=== PATIENT | male | born 1935 | race Caucasian/White ===

== ENCOUNTER 2020-12-02 08:20 | Inpatient (IN) ==
--- NOTE | 2020-12-02 08:45 | Emergency Department Note ---
Impression & Plan Septic shock, Cholangitis, MAYUR (acute kidney injury), Supratherapeutic INR, Choledocholithiasis with acute cholecystitis with obstruction ED Provider Note NAME: KAREN GONSALEZ AGE: 85 SEX: M : 1935 ARRIVES VIA: Walk-In INFORMANT: Patient, ED PROVIDER(S): Severiano Wills MD Chief Complaint: Shortness of breath, weakness, abdominal pain, nausea vomiting HPI: Patient does present with the above symptoms and has noted some abdominal pain with associated shortness of breath and generalized weakness which has been ongoing for approximately week in duration. The patient denies any cough or fever. Patient is vaccinated for Covid. Patient is not taking anything in particular for his symptoms. Patient states he has had decreased appetite. No known sick contacts or recent travel. Patient does have some associated back discomfort. The patient denies any recent trauma. The patient does describe his abdominal pain is in the upper abdomen achy and nonradiating. Patient has vomited approximately 3 times. The patient denies any blood in the vomitus or any dark tarry stools or bright red blood per rectum. Patient does take Coumadin for history of stroke A. fib. Patient states he has otherwise been compliant with his medications. The patient's daughter at bedside also believes that he has gotten progressively more weak. Patient denies any headache or neck pain. Patient denies any focal numbness or weakness. No history of diabetes. ROS: See HPI for pertinent positives and negatives. A total of 10 systems were reviewed and otherwise negative. Past medical history: See below Surgical history: See below Social history: See below Physical Exam: GENERAL: Mildly ill in appearance. Wearing a mask. EYE EXAM: Scleral icterus noted. PERRL, no anisocoria and EOM's grossly intact w/o pain. NECK: Supple, no nuchal rigidity, no adenopathy, non-tender. No signs of meningismus. LUNGS: Mild tachypnea noted but clear breath sounds throughout with no obvious wheezing, rhonchi or crackles. HEART: Tachycardic and regular, no MRG. ABDOMEN: Abdomen soft, right upper quadrant and epigastric pain without lower abdominal pain, negative obturators and psoas normo-active bowel sounds, no mass es, no rebound or guarding. BACK: No CVA TTP. SKIN: Skin appears jaundiced. UPPER EXTREMITIES: Upper extremities are grossly normal. LOWER EXTREMITIES: Grossly normal, no edema. Negative Homans' sign bilaterally. NEURO EXAM: A&O x3, cranial nerves II-XII grossly intact, normal speech, moves all 4 extremities on command w/o issue. Differential diagnoses: Appendicitis, testicular torsion, infections, diverticulitis, UTI, obstruction, mesenteric ischemia, aortic pathology, inflammatory bowel disease, renal colic, PUD, pancreatitis, biliary pathology, hernia, volvulus, constipation, as well as other pathologies. Course: Patient was seen and evaluated the bedside. Full history physical exam was performed. EKG interpreted by me Gia cruz, rate of 93, normal QRS, left axis deviation. Imaging Studies: See Below Cardiac monitoring: An order was placed for continuous cardiac monitoring. The monitor shows a rate of 115 with tachycardic rhythm. MDM: Patient did present and did appear to be tachycardic with hypotension. The patient did have some scleral icterus and given the patient's symptoms I was concerned about the possibility of biliary obstruction. Patient did have Zosyn ordered along with IV fluids. The patient did have a CT abdomen pelvis ordered as well. The patient's [id number] creatinine was elevated so a noncontrast study was ordered. The patient's white count was 21.3 with a normal H&H and platelet count. The patient's kidney function showed acute kidney dysfunction with a creatinine greater than 2. The patient did have a low potassium was ordered 20 any cues IV for an appointment. INR was approximately 10. The patient was ordered 10 of IV vitamin K. Initial lactate was elevated. Troponin also elevated with transaminitis and hyperbilirubinemia. Lipase is also elevated with elevated procalcitonin. Given the after mentioned I did immediately speak with the lead warehouse associate due to the concern for the 4 mm obstructing stone in CBD dilatation ascending cholangitis and acute cholecystitis. I did speak with Iman Coleman PA-C with Dr. Cline. They did asked the patient be given albumin as well as FFP. . Patient did have 2 large-bore IVs that were obtained in order for adequate access. I did reevaluate the patient numerous times. The patient did have an increasing oxygen requirement. The patient was stable on 8 L via oxygen mask. I also did speak with general surgery Nabila Kang PA-C with Dr. Avendano. The patient will need an emergent ERCP in order for improvement of the patient's symptoms. Given the patient's persistent hypotension the patient was started on Levophed. The patient is DNI but not DNR. I did have additional discussion with the patient's daughter at bedside. I did speak with the on-call hospitalist Rebeka Hargrove PA-C and the patient was admitted by Dr. Chiu. I did speak with the on-call boring mill set up operator vertical Dr. Starr and the patient was taken to the intensive care unit after the patient had had FFP administered. Critical Care: I have personally spent 245 minutes of critical care time in direct management of this patient. This includes bedside care, interpretation of diagnostic studies, and testing, discussion with consultants, patient, and family members, and other require inpatient management activities. This 245 minutes is in excess of all separately billable procedures. Past Med/Surg History Medical History CAD (coronary artery disease) Chronic atrial fibrillation History of CVA (cerebrovascular accident) HLD (hyperlipidemia) HTN (hypertension) Hx of pulmonary embolus Surgical History History of knee replacement Social History Smoking Status: Former smoker Tobacco Type: Cigarettes Hx Alcohol Use: No Hx Substance Use: No Preferred Language: Chinese Communication Ability: Effective Beliefs That Will Affect Care: None Current Living Situation: Alone Other Information That Helps Us Care for You: No Feels Safe at Home: Yes Safety Concerns: Feels Safe At This Time Assistive Devices: None Allergies Allergies Allergy/AdvReac Type Severity Reaction Status Date / Time No Known Allergies Allergy Unknown Verified 12/02/20 09:11 Home Meds Home Medications Medication Instructions Recorded Confirmed atorvastatin 10 mg tablet (Lipitor) 0 mg PO HS 12/02/20 12/02/20 felodipine 5 mg tablet,extended 5 mg PO QAM 12/02/20 12/02/20 release 24 hr hydrochlorothiazide 12.5 mg capsule 12.5 mg PO QAM 12/02/20 12/02/20 lisinopril 20 mg tablet (Prinivil) 20 mg PO BID 12/02/20 12/02/20 metoprolol tartrate 50 mg tablet 25 mg PO BID 12/02/20 12/02/20 (Lopressor) multivitamin (Daily Multi-Vitamin) 1 tab PO QAM 12/02/20 12/02/20 omega [id number]-[id number]-fish oil 1,200 mg 1 cap PO BID 12/02/20 12/02/20 (144 mg-216 mg) capsule (Fish Oil) warfarin 5 mg tablet (Jantoven) See Rx Instructions .ROUTE .COMPLEX 12/02/20 12/02/20 Results & Data (ED) Vital Signs Vital Signs - 24 hr 12/02/20 08:36 12/02/20 08:52 12/02/20 09:38 Temperature 36.3 C L Temperature Source Temporal Artery Scan Pulse Rate 90 Pulse Rate [Right Finger] 95 H Respiratory Rate 22 24 Respiratory Effort / Characteristics Short of Breath Non-Labored Respiratory Depth Normal Respiratory Pattern Blood Pressure 78/54 L Blood Pressure [Right Arm] 105/62 Blood Pressure Mean 62 Blood Pressure Mean [Right Arm] 76 Blood Pressure Position Sitting Pulse Oximetry 99 94 Oxygen Delivery Method Room Air Room Air Room Air Oxygen Flow Rate Sepsis Recent Fever Within 48 Hours No Sepsis New/Unexplained Change in Mental Status N/A Sepsis Action Taken by Nursing No Action Required Oxygen Flow Rate - Titration Pulse Oximetry Post Tiitration 12/02/20 09:40 12/02/20 09:42 12/02/20 09:52 Temperature Temperature Source Pulse Rate Pulse Rate [Right Finger] 90 Respiratory Rate 32 H 24 Respiratory Effort / Characteristics Non-Labored Non-Labored Non-Labored Respiratory Depth Normal Normal Respiratory Pattern Regular Blood Pressure Blood Pressure [Right Arm] 105/62 Blood Pressure Mean Blood Pressure Mean [Right Arm] 76 Blood Pressure Position Pulse Oximetry 95 95 Oxygen Delivery Method Room Air Room Air Room Air Oxygen Flow Rate Sepsis Recent Fever Within 48 Hours Sepsis New/Unexplained Change in Mental Status Sepsis Action Taken by Nursing Oxygen Flow Rate - Titration Pulse Oximetry Post Tiitration 12/02/20 10:38 12/02/20 10:39 12/02/20 10:53 Temperature Temperature Source Pulse Rate Pulse Rate [Right Finger] 88 94 H Respiratory Rate 36 H 36 H Respiratory Effort / Characteristics Respiratory Depth Respiratory Pattern Blood Pressure Blood Pressure [Right Arm] 96/51 L 96/51 L Blood Pressure Mean Blood Pressure Mean [Right Arm] 66 66 Blood Pressure Position Pulse Oximetry 93 92 88 L Oxygen Delivery Method Room Air Room Air Nasal Cannula Oxygen Flow Rate Sepsis Recent Fever Within 48 Hours Sepsis New/Unexplained Change in Mental Status Sepsis Action Taken by Nursing Oxygen Flow Rate - Titration 4 Pulse Oximetry Post Tiitration 12/02/20 10:57 12/02/20 10:59 12/02/20 11:00 Temperature Temperature Source Pulse Rate Pulse Rate [Right Finger] 81 86 Respiratory Rate 36 H 34 H Respiratory Effort / Characteristics Respiratory Depth Respiratory Pattern Blood Pressure Blood Pressure [Right Arm] 81/58 L 92/56 L Blood Pressure Mean Blood Pressure Mean [Right Arm] 65 68 Blood Pressure Position Pulse Oximetry 91 91 Oxygen Delivery Method Nasal Cannula Nasal Cannula Nasal Cannula Oxygen Flow Rate 4 6 6 Sepsis Recent Fever Within 48 Hours Sepsis New/Unexplained Change in Mental Status Sepsis Action Taken by Nursing Oxygen Flow Rate - Titration Pulse Oximetry Post Tiitration 12/02/20 11:13 12/02/20 11:15 Temperature Temperature Source Pulse Rate Pulse Rate [Right Finger] 80 Respiratory Rate 24 Respiratory Effort / Characteristics Respiratory Depth Respiratory Pattern Blood Pressure Blood Pressure [Right Arm] 104/56 L Blood Pressure Mean Blood Pressure Mean [Right Arm] 72 Blood Pressure Position Pulse Oximetry 91 93 Oxygen Delivery Method Oxymask Oxymask Oxygen Flow Rate 8 8 Sepsis Recent Fever Within 48 Hours Sepsis New/Unexplained Change in Mental Status Sepsis Action Taken by Nursing Oxygen Flow Rate - Titration Pulse Oximetry Post Tiitration 93 Home Medications Current Medication List: was personally reviewed by me Laboratory Data Attestation: I reviewed the patient's lab results. Result diagrams: 12/02/20 09:13 12/02/20 09:13 Lab Results 12/02/20 12/02/20 12/02/20 Range/Units 09:13 09:13 09:13 WBC 21.30 H (4.8-10.8) K/uL RBC 5.33 (4.7-6.1) M/uL Hgb 16.1 (14.0-18.0) g/dL Hct 47.2 (42-52) % MCV 88.6 (80-100) fL MCH 30.2 (25-34) pg MCHC 34.1 (32-36) g/dL RDW Std Deviation 47.7 H (36.4-46.3) fL RDW Coeff of Otilia 14.8 H (11.5-14.5) % Plt Count 181 (130-400) K/uL MPV 11.2 H (7.4-10.4) fL Immature Gran % (Auto) 1.5 % Neut % (Auto) 93.6 % Lymph % (Auto) 2.3 % [place] % (Auto) 2.6 % Eos % (Auto) 0.0 % Baso % (Auto) 0.0 % Neut # (Auto) 19.92 H (1.4-6.5) K/uL Lymph # (Auto) 0.49 L (1.2-3.4) K/uL [place] # (Auto) 0.55 (0.11-0.59) K/uL Eos # (Auto) 0.00 (0-0.5) K/uL Baso # (Auto) 0.01 (0-0.2) K/uL Immature Gran # (Auto) 0.33 H (0.00-0.02) K/uL Toxic Vacuolation 2+ PT (9.0-12.0) Seconds INR (0.9-1.1) APTT (21.0-31.0) Seconds PTT Ratio Sodium 133 L (136-145) mmol/L Potassium 2.6 L (3.5-5.1) mmol/L Chloride 94 L (98-107) mmol/L Carbon Dioxide 24 (21-32) mmol/L Anion Gap 16.0 H (3-11) BUN 22 H (7-18) mg/dl Creatinine 2.17 H (0.6-1.4) mg/dl Est Cr Clr Drug Dosing 29.7 ml/min Est GFR ( Amer) 30.6 ml/min Est GFR (Non-Af Amer) 26.4 ml/min BUN/Creatinine Ratio 10.2 (10-20) Glucose 94 (70-99) mg/dl Lactate (0.4-2.0) mmol/L Calcium 8.8 (8.5-10.1) mg/dl Magnesium 1.9 (1.8-2.4) mg/dl Total Bilirubin 7.1 H (0.2-1) mg/dl AST 153 H (15-37) U/L ALT 222 H (12-78) U/L Alkaline Phosphatase 233 H (45-117) U/L Troponin I 0.129 H* (0-0.045) ng/ml Total Protein 7.1 (6.4-8.2) gm/dl Albumin 2.7 L (3.4-5.0) gm/dl Globulin 4.4 H (2.5-4.0) gm/dl Albumin/Globulin Ratio 0.6 L (0.9-2) Lipase 1052 H (73-393) U/L Procalcitonin 37.23 H (0-0.5) ng/ml COVID-19 Eval Order SARS-CoV-2 (PCR) (Negative) 12/02/20 12/02/20 12/02/20 Range/Units 09:13 09:30 09:30 WBC (4.8-10.8) K/uL RBC (4.7-6.1) M/uL Hgb (14.0-18.0) g/dL Hct (42-52) % MCV (80-100) fL MCH (25-34) pg MCHC (32-36) g/dL RDW Std Deviation (36.4-46.3) fL RDW Coeff of Otilia (11.5-14.5) % Plt Count (130-400) K/uL MPV (7.4-10.4) fL Immature Gran % (Auto) % Neut % (Auto) % Lymph % (Auto) % [place] % (Auto) % Eos % (Auto) % Baso % (Auto) % Neut # (Auto) (1.4-6.5) K/uL Lymph # (Auto) (1.2-3.4) K/uL [place] # (Auto) (0.11-0.59) K/uL Eos # (Auto) (0-0.5) K/uL Baso # (Auto) (0-0.2) K/uL Immature Gran # (Auto) (0.00-0.02) K/uL Toxic Vacuolation PT 83.5 H (9.0-12.0) Seconds INR 9.9 H* (0.9-1.1) APTT 39.0 H (21.0-31.0) Seconds PTT Ratio 1.5 Sodium (136-145) mmol/L Potassium (3.5-5.1) mmol/L Chloride (98-107) mmol/L Carbon Dioxide (21-32) mmol/L Anion Gap (3-11) BUN (7-18) mg/dl Creatinine (0.6-1.4) mg/dl Est Cr Clr Drug Dosing ml/min Est GFR ( Amer) ml/min Est GFR (Non-Af Amer) ml/min BUN/Creatinine Ratio (10-20) Glucose (70-99) mg/dl Lactate (0.4-2.0) mmol/L Calcium (8.5-10.1) mg/dl Magnesium (1.8-2.4) mg/dl Total Bilirubin (0.2-1) mg/dl AST (15-37) U/L ALT (12-78) U/L Alkaline Phosphatase (45-117) U/L Troponin I (0-0.045) ng/ml Total Protein (6.4-8.2) gm/dl Albumin (3.4-5.0) gm/dl Globulin (2.5-4.0) gm/dl Albumin/Globulin Ratio (0.9-2) Lipase (73-393) U/L Procalcitonin (0-0.5) ng/ml COVID-19 Eval Order Covid19 at [facility] SARS-CoV-2 (PCR) NEGATIVE (Negative) 12/02/20 Range/Units 09:36 WBC (4.8-10.8) K/uL RBC (4.7-6.1) M/uL Hgb (14.0-18.0) g/dL Hct (42-52) % MCV (80-100) fL MCH (25-34) pg MCHC (32-36) g/dL RDW Std Deviation (36.4-46.3) fL RDW Coeff of Otilia (11.5-14.5) % Plt Count (130-400) K/uL MPV (7.4-10.4) fL Immature Gran % (Auto) % Neut % (Auto) % Lymph % (Auto) % [place] % (Auto) % Eos % (Auto) % Baso % (Auto) % Neut # (Auto) (1.4-6.5) K/uL Lymph # (Auto) (1.2-3.4) K/uL [place] # (Auto) (0.11-0.59) K/uL Eos # (Auto) (0-0.5) K/uL Baso # (Auto) (0-0.2) K/uL Immature Gran # (Auto) (0.00-0.02) K/uL Toxic Vacuolation PT (9.0-12.0) Seconds INR (0.9-1.1) APTT (21.0-31.0) Seconds PTT Ratio Sodium (136-145) mmol/L Potassium (3.5-5.1) mmol/L Chloride (98-107) mmol/L Carbon Dioxide (21-32) mmol/L Anion Gap (3-11) BUN (7-18) mg/dl Creatinine (0.6-1.4) mg/dl Est Cr Clr Drug Dosing ml/min Est GFR ( Amer) ml/min Est GFR (Non-Af Amer) ml/min BUN/Creatinine Ratio (10-20) Glucose (70-99) mg/dl Lactate 8.9 H* (0.4-2.0) mmol/L Calcium (8.5-10.1) mg/dl Magnesium (1.8-2.4) mg/dl Total Bilirubin (0.2-1) mg/dl AST (15-37) U/L ALT (12-78) U/L Alkaline Phosphatase (45-117) U/L Troponin I (0-0.045) ng/ml Total Protein (6.4-8.2) gm/dl Albumin (3.4-5.0) gm/dl Globulin (2.5-4.0) gm/dl Albumin/Globulin Ratio (0.9-2) Lipase (73-393) U/L Procalcitonin (0-0.5) ng/ml COVID-19 Eval Order SARS-CoV-2 (PCR) (Negative) Administered Medications Norepinephrine Bitartrate (Levophed/D5w) 8 mg in 508 mls @ 18.84 mls/hr IV .Q24H JACEK; Protocol Stop: 01/01/21 12:29 Last Admin: 12/02/20 12:41 Dose: 0.05 mcg/kg/min, 18.8 mls/hr Documented by: [id number] Cosigned by: [id number] Lactated Ringer's (Lr) 1,000 mls @ 125 mls/hr IV .Q8H JACEK Stop: 12/03/20 15:22 Last Admin: 12/02/20 16:23 Dose: 125 mls/hr Documented by: [id number] Piperacillin Sod/Tazobactam (Sod 4.5 gm/ Dextrose) 120 mls @ 30 mls/hr IV Q8H [facility]; Protocol Stop: 12/12/20 15:59 Last Admin: 12/02/20 16:38 Dose: 30 mls/hr Documented by: [id number] Discontinued Medications Sodium Chloride (Nss 1000ml) 1,000 mls @ 999 mls/hr IV .Q1H1M JACEK Stop: 12/02/20 09:54 Last Infusion: 12/02/20 12:06 Dose: 0 mls/hr Documented by: [id number] Admin: 12/02/20 09:16 Dose: 999 mls/hr Documented by: [id number] Sodium Chloride (Nss 1000ml) 1,000 mls @ 999 mls/hr IV .Q1H1M [facility] Stop: 12/02/20 11:00 Last Infusion: 12/02/20 12:11 Dose: 0 mls/hr Documented by: [id number] Admin: 12/02/20 09:44 Dose: 999 mls/hr Documented by: [id number] Piperacillin Sod/Tazobactam Sod (Zosyn) 4.5 gm in 120 mls @ 240 mls/hr IV NOW ONE Stop: 12/02/20 09:22 Last Infusion: 12/02/20 10:31 Dose: 0 mls/hr Documented by: [id number] Admin: 12/02/20 09:16 Dose: 240 mls/hr Documented by: [id number] Sodium Chloride (Nss 1000ml) 1,000 mls @ 999 mls/hr IV .Q1H1M ONE Stop: 12/02/20 11:13 Last Infusion: 12/02/20 12:06 Dose: 0 mls/hr Documented by: [id number] Admin: 12/02/20 10:41 Dose: 999 mls/hr Documented by: [id number] Phytonadione 10 mg/ Sodium (Chloride) 51 mls @ 102 mls/hr IV ONE ONE Stop: 12/02/20 10:44 Last Infusion: 12/02/20 11:14 Dose: 0 mls/hr Documented by: [id number] Admin: 12/02/20 10:37 Dose: 102 mls/hr Documented by: [id number] Potassium Chloride (K Patrick / Wtr) 10 meq in 100 mls @ 100 mls/hr IV Q1H JACEK Stop: 12/02/20 12:29 Last Infusion: 12/02/20 13:49 Dose: 0 mls/hr Documented by: [id number] Admin: 12/02/20 12:10 Dose: 100 mls/hr Documented by: [id number] Infusion: 12/02/20 12:10 Dose: 100 mls/hr Documented by: [id number] Admin: 12/02/20 11:10 Dose: 100 mls/hr Documented by: [id number] Potassium Chloride (K Patrick / Wtr) 10 meq in 100 mls @ 100 mls/hr IV Q1H JACEK Stop: 12/02/20 16:29 Last Infusion: 12/02/20 16:06 Dose: 0 mls/hr Documented by: [id number] Admin: 12/02/20 15:06 Dose: 100 mls/hr Documented by: [id number] Sodium Chloride (Nss 1000ml) 1,000 mls @ 999 mls/hr IV .Q1H1M ONE Stop: 12/02/20 13:26 Last Infusion: 12/02/20 13:50 Dose: 0 mls/hr Documented by: [id number] Admin: 12/02/20 12:32 Dose: 999 mls/hr Documented by: [id number] Albumin Human (Albumin 25%) 12.5 gm in 50 mls @ 50 mls/hr IV Q1H JACEK Stop: 12/02/20 14:44 Last Infusion: 12/02/20 15:52 Dose: 0 mls/hr Documented by: [id number] Admin: 12/02/20 14:52 Dose: 50 mls/hr Documented by: [id number] Infusion: 12/02/20 14:08 Dose: 50 mls/hr Documented by: [id number] Admin: 12/02/20 13:08 Dose: 50 mls/hr Documented by: [id number] Miscellaneous (Stat Iv Infusion Titration Per Protocol) 1 ea N/A NOW STA Stop: 12/02/20 12:27 Last Admin: 12/02/20 12:41 Dose: 1 ea Documented by: [id number] Miscellaneous Information (Piperacill/Tazobac Consult Active) 1 ea N/A UD PRN PRN Reason: Consult Stop: 01/01/21 08:52 Last Admin: 12/02/20 09:44 Dose: 1 ea Documented by: [id number] Norepinephrine Bitartrate (Norepinephrine/D5w 8 Mg/508 Ml) Confirm Administered Dose 8 mg IV .STK-MED ONE Stop: 12/02/20 12:24 Last Admin: 12/02/20 12:38 Dose: 8 mg Documented by: [id number] Imaging Data Radiologist's Impression: Chest X-Ray 12/02/20 08:54 XR chest 1V portable HISTORY: 85 years-old Male SEPSIS acute sepsis COMPARISON: Chest CT 11/03/2008, chest radiograph 12/17/2007 TECHNIQUE: Portable AP view of the chest FINDINGS: Cardiac silhouette is upper limits of normal in size. Calcified plaque of the thoracic aorta. Mild blunting of the right costophrenic angle with subsegmental bibasilar atelectasis. No pneumothorax, large pleural effusion or overt pulmonary edema. Degenerative changes of the shoulders and spine. IMPRESSION: Blunting of the right costophrenic angle is suggestive of atelectasis versus trace effusion. ACT 112: Negative or not required by law. The above report was generated using voice recognition software. It may contain grammatical, syntax or spelling errors. Electronically signed by: Emeterio Stark M.D. 12/02/2020 9:23 AM Abdomen/Pelvis CT 12/02/20 09:50 CT SCAN OF THE ABDOMEN AND PELVIS WITHOUT CONTRAST CLINICAL HISTORY: epigastric/RUQ pain COMPARISON STUDY: No previous studies for comparison. TECHNIQUE: CT scan of the abdomen and pelvis was performed from the lung bases to the proximal femurs. Images are reviewed in the axial, sagittal, and coronal planes. IV contrast was not administered for this examination. A dose lowering technique was utilized adhering to the principles of ALARA. CT DOSE: 1030.84 mGycm FINDINGS: Lower chest: Minimal atelectasis and septal thickening is seen at dependent portions of bilateral lower lobes. Liver: The unenhanced liver is normal in size, contour, and attenuation. There is no intrahepatic biliary ductal dilatation. Gallbladder: Is fluid-filled with mild thickening of its wall and surrounding fat stranding. Common bile duct is dilated measuring 1.4 cm in diameter. There is obstructive 4 mm calculus within distal aspect of the common bile duct (3/205). Fat stranding within the right upper quadrant is seen extending to the second portion of the duodenum, surrounds right kidney and associated with thickening of the right hemidiaphragm. Spleen: Normal in size and attenuation. Pancreas: Unremarkable. Adrenal glands: Left adrenal gland is unremarkable. Right adrenal gland is enl arged measuring 3.7 cm in size and shows internal 2.2 cm hyperattenuating component which is close in attenuation to lumen of aorta and might represent hemorrhage versus heterogeneous hyperattenuating nodule. Kidneys: The unenhanced kidneys are normal in size without hydronephrosis. Multiple punctate nonobstructive calculi are seen within bilateral renal pelvises. Hemorrhagic cyst is seen within the posterior aspect of the right renal parenchyma measuring approximately 1.3 cm in size. 2.5 cm cyst is seen within inferior aspect of the right renal cortex. Bowel: Moderate hiatal hernia is seen. Bowel loops are nondilated. Fat stranding is seen surrounding descending portion of the duodenum, likely reactive. No definite duodenal wall thickening is seen. Appendix is not well seen. Diverticulosis of descending and sigmoid colon is seen without evidence of diverticulitis. Large stool burden is seen within pelvic region. Peritoneum: There is no intraperitoneal free air or abdominal ascites. Vasculature: Abdominal aorta is normal in caliber with scattered calcifications of its wall. Adenopathy: Multiple small retroperitoneal lymph nodes are seen measuring less than 1 cm in short axis, nonpathological by CT size criteria. Pelvic viscera: Urinary bladder is partially decompressed. Prostate gland is not significantly enlarged. Skeletal structures: Multilevel degenerative changes of the spine. No definite a ggressive osseous lesions are seen. IMPRESSION: 1. Obstructive 4 mm calculus within distal aspect of the common bile duct associated with common bile duct dilatation and cholecystitis and cholangitis. Report will be sent to emergency Department. 2. Questionable heterogeneous right adrenal nodule which might also represent hemorrhage. Please correlate this findings with clinical presentation. 3. Bilateral nonobstructive nephrolithiasis. Cystic lesions within the right kidney, see discussion above. 4. Nondilated loops of bowel. Diverticulosis of sigmoid colon. Large amount of stool within the rectum, might represent fecal impaction. 5. Atherosclerosis. 6. The rest of findings as above. ACT 112: Negative or not required by law. The above report was generated using voice recognition software. It may contain grammatical, syntax or spelling errors. Electronically signed by: Isaura Perez DO 12/02/2020 10:36 AM Discharge Plan Visit Data Chief Complaint: Shortness of Breath/Dyspnea Stated Complaint: SOB,ABDOMINAL PAIN,WEAKNESS ED Provider: Severiano Wills Discharge Problem: Septic shock, Cholangitis, MAYUR (acute kidney injury), Supratherapeutic INR, Choledocholithiasis with acute cholecystitis with obstruction Patient Disposition: Admitted As Inpatient Discharge Instructions Interventions: ED Discharge Assessment Last Done: 12/02/20 14:18
[2020-12-02] MEDS ORDERED: PIPERACILL/TAZOBAC CONSULT ACTIVE PRN ×2 (08:53→15:23)
[2020-12-02] MEDS ORDERED: PIPERACILLIN/TAZOBACTAM 4.5 GM/120 ML BAG IV ONE (08:53)
[2020-12-02] MEDS ORDERED: SODIUM CHLORIDE 0.9% 1000ML 1,000 ML IV SCH ×2 (09:00→10:00)
[2020-12-02 09:22] LABS: Basophils # (auto) 0.01 K/uL (0-0.2); Hematocrit (blood only) 47.2 % (42-52); Hemoglobin 16.1 g/dL (14.0-18.0); Immature Granulocytes # (auto) 0.33 K/uL (0.00-0.02); Immature Granulocytes % (auto) 1.5 %; Lymphocytes # (auto) 0.49 K/uL (1.2-3.4); Lymphocytes % (auto) 2.3 %; Mean Corpuscular Hemoglobin 30.2 pg (25-34); Mean Corpuscular Hgb Conc 34.1 g/dL (32-36); Mean Corpuscular Volume 88.6 fL (80-100); Mean Platelet Volume 11.2 fL (7.4-10.4); Monocytes # (auto) 0.55 K/uL (0.11-0.59); Monocytes % (auto) 2.6 %; Neutrophils # (auto) 19.92 K/uL (1.4-6.5); Neutrophils % (auto) 93.6 %; Platelet Count 181 K/uL (130-400); RDW Coefficient of Variation 14.8 % (11.5-14.5); RDW Standard Deviation 47.7 fL (36.4-46.3); Red Blood Count 5.33 M/uL (4.7-6.1)
--- NOTE | 2020-12-02 09:24 | XRay Report ---
XR chest 1V portable HISTORY: 85 years-old Male SEPSIS acute sepsis COMPARISON: Chest CT 11/03/2008, chest radiograph 12/17/2007 TECHNIQUE: Portable AP view of the chest FINDINGS: Cardiac silhouette is upper limits of normal in size. Calcified plaque of the thoracic aorta. Mild bl unting of the right costophrenic angle with subsegmental bibasilar atelectasis. No pneumothorax, larg e pleural effusion or overt pulmonary edema. Degenerative changes of the shoulders and spine. IMPRESSION: Blunting of the right costophrenic angle is suggestive of atelectasis versus trace effusi on. ACT 112: Negative or not required by law. The above report was generated using voice recognition software. It may contain grammatical, syntax o r spelling errors. Electronically signed by: Emeterio Stark M.D. 12/02/2020 9:23 AM
[2020-12-02 09:53] LABS: Partial Thromboplastin Ratio 1.5; Prothrombin Time 83.5 Seconds (9.0-12.0)
[2020-12-02 09:55] LABS: Albumin Globulin Ratio 0.6 (0.9-2); Albumin Level 2.7 gm/dl (3.4-5.0); BUN Creatinine Ratio 10.2 (10-20); Bilirubin,Total 7.1 mg/dl (0.2-1); Calcium 8.8 mg/dl (8.5-10.1); Creatinine Clr Calc Pharmacy 29.7 ml/min; Est GFR (African American) 30.6 ml/min; Est GFR (Non-African American) 26.4 ml/min; Globulin 4.4 gm/dl (2.5-4.0); Magnesium 1.9 mg/dl (1.8-2.4); Potassium 2.6 mmol/L (3.5-5.1); Total Protein 7.1 gm/dl (6.4-8.2); Troponin I 0.129 ng/ml (0-0.045)
[2020-12-02 10:11] LABS: INR 9.9 (0.9-1.1); Toxic Vacuolation 2+
[2020-12-02] MEDS ORDERED: SODIUM CHLORIDE 0.9% 1000ML 1,000 ML IV ONE ×3 (10:13→12:26)
[2020-12-02] MEDS ORDERED: PHYTONADIONE 10 MG in SODIUM CHLORIDE 0.9% 50 ML IV ONE (10:15)
--- NOTE | 2020-12-02 10:37 | CT Scan Report ---
CT SCAN OF THE ABDOMEN AND PELVIS WITHOUT CONTRAST CLINICAL HISTORY: epigastric/RUQ pain COMPARISON STUDY: No previous studies for comparison. TECHNIQUE: CT scan of the abdomen and pelvis was performed from the lung bases to the proximal femurs . Images are reviewed in the axial, sagittal, and coronal planes. IV contrast was not administered fo r this examination. A dose lowering technique was utilized adhering to the principles of ALARA. CT DOSE: 1030.84 mGycm FINDINGS: Lower chest: Minimal atelectasis and septal thickening is seen at dependent portions of bilateral low er lobes. Liver: The unenhanced liver is normal in size, contour, and attenuation. There is no intrahepatic chuck iary ductal dilatation. Gallbladder: Is fluid-filled with mild thickening of its wall and surrounding fat stranding. Common b ile duct is dilated measuring 1.4 cm in diameter. There is obstructive 4 mm calculus within distal as pect of the common bile duct (3/205). Fat stranding within the right upper quadrant is seen extending to the second portion of the duodenum, surrounds right kidney and associated with thickening of the right hemidiaphragm. Spleen: Normal in size and attenuation. Pancreas: Unremarkable. Adrenal glands: Left adrenal gland is unremarkable. Right adrenal gland is enlarged measuring 3.7 cm in size and shows internal 2.2 cm hyperattenuating component which is close in attenuation to lumen o f aorta and might represent hemorrhage versus heterogeneous hyperattenuating nodule. Kidneys: The unenhanced kidneys are normal in size without hydronephrosis. Multiple punctate nonobstr uctive calculi are seen within bilateral renal pelvises. Hemorrhagic cyst is seen within the posterio r aspect of the right renal parenchyma measuring approximately 1.3 cm in size. 2.5 cm cyst is seen wi thin inferior aspect of the right renal cortex. Bowel: Moderate hiatal hernia is seen. Bowel loops are nondilated. Fat stranding is seen surrounding descending portion of the duodenum, likely reactive. No definite duodenal wall thickening is seen. Ap pendix is not well seen. Diverticulosis of descending and sigmoid colon is seen without evidence of d iverticulitis. Large stool burden is seen within pelvic region. Peritoneum: There is no intraperitoneal free air or abdominal ascites. Vasculature: Abdominal aorta is normal in caliber with scattered calcifications of its wall. Adenopathy: Multiple small retroperitoneal lymph nodes are seen measuring less than 1 cm in short axi s, nonpathological by CT size criteria. Pelvic viscera: Urinary bladder is partially decompressed. Prostate gland is not significantly enlarg ed. Skeletal structures: Multilevel degenerative changes of the spine. No definite aggressive osseous les ions are seen. IMPRESSION: 1. Obstructive 4 mm calculus within distal aspect of the common bile duct associated with common chuck e duct dilatation and cholecystitis and cholangitis. Report will be sent to emergency Department. 2. Questionable heterogeneous right adrenal nodule which might also represent hemorrhage. Please cor relate this findings with clinical presentation. 3. Bilateral nonobstructive nephrolithiasis. Cystic lesions within the right kidney, see discussion above. 4. Nondilated loops of bowel. Diverticulosis of sigmoid colon. Large amount of stool within the rect um, might represent fecal impaction. 5. Atherosclerosis. 6. The rest of findings as above. ACT 112: Negative or not required by law. The above report was generated using voice recognition software. It may contain grammatical, syntax o r spelling errors. Electronically signed by: Isaura Perez DO 12/02/2020 10:36 AM
--- NOTE | 2020-12-02 10:59 | Gastrointestinal Consultation ---
Date of Consultation December 02, 2020 Assessment & Plan (1) Cholangitis: (2) Dilated cbd, acquired: This is an 85 y/o male with a-fib on Coumadin and other co-morbidities who presented to the ER with abd pain, SOB. Lab, imaging findings concerning for sepsis with biliary obstruction, cholangitis, cholecystitis, with supratherapeutic INR, hypokalemia, MAYUR. He is ill-appearing on exam, having some hypotension; abd is soft. - Will plan for urgent ERCP today for evaluation of CBD stone/cholangitis. I reviewed this with pt and his daughter - Keep NPO - Will need INR reversal - aim for INR < 2 - Please make sure 2 units FFP are available and ready to be given 30 mins prior to ERCP - Will need replacement of potassium - aim for K > 3 - IV ABX - IVF - Supportive care as needed - Analgesia PRN - Surgical consult to consider cholecystectomy Thank you for allowing us to participate in the care of this patient. Please call with any acute changes, questions or concerns. Please see addendum below with additional recommendation from my supervising physician. Supervising Physician Co-Signing Physician Notes I performed a history and physical examination of the patient today, including specifically on physical exam - soft abdomen. I have discussed the patient's management with the advanced practitioner. Please refer to the nurse practitioner's note for the documented findings and plan of care. Urgent ERCP now for cholangitis with septic shock. Patient was explained in detail regarding risks, benefits, limitations and alternatives of the above endoscopic procedure. Risks of intravenous sedation used for procedure were also explained. Risks include, but not limited to perforation, bleeding, infection, respiratory distress, cardiac arrest and . Patient is also aware about the possibility of missed lesion. Patient's questions were answered. The patient verbalized understanding the information and agreed to undergo the procedure. History of Present Illness Reason for Consultation: cholangitis Requesting Physician: Dr. Severiano Wills History of Present Illness This is an 85 y/o male with PMhx HTN, HLD, stroke, A-fib on Coumadin, history of PE and others who came to the ER today with 1 week of progressive upper abd pain, SOB, weakness, poor appetite, vomiting x 3 (none today). On arrival labs significantly abnormal with WBC 21k, MAYUR w/ creatinine 2.17, BUN 22, INR 9.9, Tbili 7.1, AST 153, ALT 222, ALP 233, lipase 1000, procal 37, lactate 9, Na 133, K 2.6. Is having hypotension and tachypnea. Has gotten IVF x [address] suggestive of obstructive 4 mm distal CBD calculus with CBD dilation and cholecystitis, cholangitis. His daughter Jessenia is at bedside and helps with the history. Pt has had dark urine for a few days. Last BM was yesterday, small, dark. Denies hematemesis, melena, hematochezia, ruiz stools, chills, rigors, fever, syncope, CP, leg edema. No NSAID, ETOH or tobacco use. Allergies Allergy/AdvReac Type Severity Reaction Status Date / Time No Known Allergies Allergy Unknown Verified 12/02/20 09:11 Home Medications Medication Instructions Recorded Confirmed Type atorvastatin 10 mg tablet (Lipitor) 0 mg PO HS 12/02/20 12/02/20 History felodipine 5 mg tablet,extended 5 mg PO QAM 12/02/20 12/02/20 History release 24 hr hydrochlorothiazide 12.5 mg capsule 12.5 mg PO QAM 12/02/20 12/02/20 History lisinopril 20 mg tablet (Prinivil) 20 mg PO BID 12/02/20 12/02/20 History metoprolol tartrate 50 mg tablet 25 mg PO BID 12/02/20 12/02/20 History (Lopressor) multivitamin (Daily Multi-Vitamin) 1 tab PO QAM 12/02/20 12/02/20 History omega 2-nkr-jvb-fish oil 1,200 mg 1 cap PO BID 12/02/20 12/02/20 History (144 mg-216 mg) capsule (Fish Oil) warfarin 5 mg tablet (Jantoven) See Rx Instructions .ROUTE .COMPLEX 12/02/20 12/02/20 History Patient History Social History Smoking Status: Former smoker Tobacco Type: Cigarettes Hx Alcohol Use: No Hx Substance Use: No Preferred Language: Vietnamese Communication Ability: Effective Beliefs That Will Affect Care: None Current Living Situation: Alone Other Information That Helps Us Care for You: No Feels Safe at Home: Yes Safety Concerns: Feels Safe At This Time Assistive Devices: None Review of Systems Review of Systems: All systems reviewed & are unremarkable except as noted in HPI & below Physical Exam Constitutional: Well developed, ill-appearing Eyes: PERRL, conjunctivae normal, anicteric sclerae Neck: trachea midline, no thyromegaly Respiratory: normal respiratory effort, lungs clear to auscultation Cardiovascular: Rate/Rhythm: + irregularly irregular Heart Sounds: no murmur Extremities: no edema Gastrointestinal (Abdomen): BS x 4 quadrants, soft, moderately tender to the epigastrium/RUQ, no guarding, rebound, nondistended Skin: no rashes, warm and dry + jaundice Psychiatric: A+Ox3, euthymic affect Results & Data ([facility]) Vital Signs (Past 12 Hours) Vital Signs Temp Pulse Pulse Resp BP BP Pulse Ox 12/02/20 10:53 88 L 12/02/20 10:39 94 H 36 H 96/51 L 92 12/02/20 10:38 88 36 H 96/51 L 93 12/02/20 09:42 90 24 105/62 95 12/02/20 09:40 32 H 95 12/02/20 09:38 95 H 24 105/62 94 12/02/20 08:36 36.3 C L 90 22 78/54 L 99 Laboratory Results 12/02/20 12/02/20 12/02/20 Range/Units 09:36 09:30 09:30 WBC (4.8-10.8) K/uL RBC (4.7-6.1) M/uL Hgb (14.0-18.0) g/dL Hct (42-52) % MCV (80-100) fL MCH (25-34) pg MCHC (32-36) g/dL RDW Std Deviation (36.4-46.3) fL RDW Coeff of Otilia (11.5-14.5) % Plt Count (130-400) K/uL MPV (7.4-10.4) fL Immature Gran % (Auto) % Neut % (Auto) % Lymph % (Auto) % Taylor % (Auto) % Eos % (Auto) % Baso % (Auto) % Neut # (Auto) (1.4-6.5) K/uL Lymph # (Auto) (1.2-3.4) K/uL Taylor # (Auto) (0.11-0.59) K/uL Eos # (Auto) (0-0.5) K/uL Baso # (Auto) (0-0.2) K/uL Immature Gran # (Auto) (0.00-0.02) K/uL Toxic Vacuolation PT (9.0-12.0) Seconds INR (0.9-1.1) APTT (21.0-31.0) Seconds PTT Ratio Sodium (136-145) mmol/L Potassium (3.5-5.1) mmol/L Chloride (98-107) mmol/L Carbon Dioxide (21-32) mmol/L Anion Gap (3-11) BUN (7-18) mg/dl Creatinine (0.6-1.4) mg/dl Est Cr Clr Drug Dosing ml/min Est GFR ( Amer) ml/min Est GFR (Non-Af Amer) ml/min BUN/Creatinine Ratio (10-20) Glucose (70-99) mg/dl Lactate 8.9 H* (0.4-2.0) mmol/L Calcium (8.5-10.1) mg/dl Magnesium (1.8-2.4) mg/dl Total Bilirubin (0.2-1) mg/dl AST (15-37) U/L ALT (12-78) U/L Alkaline Phosphatase (45-117) U/L Troponin I (0-0.045) ng/ml Total Protein (6.4-8.2) gm/dl Albumin (3.4-5.0) gm/dl Globulin (2.5-4.0) gm/dl Albumin/Globulin Ratio (0.9-2) Lipase (73-393) U/L Procalcitonin (0-0.5) ng/ml COVID-19 Eval Order Covid19 at [facility] SARS-CoV-2 (PCR) NEGATIVE (Negative) 12/02/20 12/02/20 12/02/20 Range/Units 09:13 09:13 09:13 WBC 21.30 H (4.8-10.8) K/uL RBC 5.33 (4.7-6.1) M/uL Hgb 16.1 (14.0-18.0) g/dL Hct 47.2 (42-52) % MCV 88.6 (80-100) fL MCH 30.2 (25-34) pg MCHC 34.1 (32-36) g/dL RDW Std Deviation 47.7 H (36.4-46.3) fL RDW Coeff of Otilia 14.8 H (11.5-14.5) % Plt Count 181 (130-400) K/uL MPV 11.2 H (7.4-10.4) fL Immature Gran % (Auto) 1.5 % Neut % (Auto) 93.6 % Lymph % (Auto) 2.3 % Taylor % (Auto) 2.6 % Eos % (Auto) 0.0 % Baso % (Auto) 0.0 % Neut # (Auto) 19.92 H (1.4-6.5) K/uL Lymph # (Auto) 0.49 L (1.2-3.4) K/uL Taylor # (Auto) 0.55 (0.11-0.59) K/uL Eos # (Auto) 0.00 (0-0.5) K/uL Baso # (Auto) 0.01 (0-0.2) K/uL Immature Gran # (Auto) 0.33 H (0.00-0.02) K/uL Toxic Vacuolation 2+ PT 83.5 H (9.0-12.0) Seconds INR 9.9 H* (0.9-1.1) APTT 39.0 H (21.0-31.0) Seconds PTT Ratio 1.5 Sodium (136-145) mmol/L Potassium (3.5-5.1) mmol/L Chloride (98-107) mmol/L Carbon Dioxide (21-32) mmol/L Anion Gap (3-11) BUN (7-18) mg/dl Creatinine (0.6-1.4) mg/dl Est Cr Clr Drug Dosing ml/min Est GFR ( Amer) ml/min Est GFR (Non-Af Amer) ml/min BUN/Creatinine Ratio (10-20) Glucose (70-99) mg/dl Lactate (0.4-2.0) mmol/L Calcium (8.5-10.1) mg/dl Magnesium (1.8-2.4) mg/dl Total Bilirubin (0.2-1) mg/dl AST (15-37) U/L ALT (12-78) U/L Alkaline Phosphatase (45-117) U/L Troponin I (0-0.045) ng/ml Total Protein (6.4-8.2) gm/dl Albumin (3.4-5.0) gm/dl Globulin (2.5-4.0) gm/dl Albumin/Globulin Ratio (0.9-2) Lipase (73-393) U/L Procalcitonin 37.23 H (0-0.5) ng/ml COVID-19 Eval Order SARS-CoV-2 (PCR) (Negative) 12/02/20 Range/Units 09:13 WBC (4.8-10.8) K/uL RBC (4.7-6.1) M/uL Hgb (14.0-18.0) g/dL Hct (42-52) % MCV (80-100) fL MCH (25-34) pg MCHC (32-36) g/dL RDW Std Deviation (36.4-46.3) fL RDW Coeff of Otilia (11.5-14.5) % Plt Count (130-400) K/uL MPV (7.4-10.4) fL Immature Gran % (Auto) % Neut % (Auto) % Lymph % (Auto) % Taylor % (Auto) % Eos % (Auto) % Baso % (Auto) % Neut # (Auto) (1.4-6.5) K/uL Lymph # (Auto) (1.2-3.4) K/uL Taylor # (Auto) (0.11-0.59) K/uL Eos # (Auto) (0-0.5) K/uL Baso # (Auto) (0-0.2) K/uL Immature Gran # (Auto) (0.00-0.02) K/uL Toxic Vacuolation PT (9.0-12.0) Seconds INR (0.9-1.1) APTT (21.0-31.0) Seconds PTT Ratio Sodium 133 L (136-145) mmol/L Potassium 2.6 L (3.5-5.1) mmol/L Chloride 94 L (98-107) mmol/L Carbon Dioxide 24 (21-32) mmol/L Anion Gap 16.0 H (3-11) BUN 22 H (7-18) mg/dl Creatinine 2.17 H (0.6-1.4) mg/dl Est Cr Clr Drug Dosing 29.7 ml/min Est GFR ( Amer) 30.6 ml/min Est GFR (Non-Af Amer) 26.4 ml/min BUN/Creatinine Ratio 10.2 (10-20) Glucose 94 (70-99) mg/dl Lactate (0.4-2.0) mmol/L Calcium 8.8 (8.5-10.1) mg/dl Magnesium 1.9 (1.8-2.4) mg/dl Total Bilirubin 7.1 H (0.2-1) mg/dl AST 153 H (15-37) U/L ALT 222 H (12-78) U/L Alkaline Phosphatase 233 H (45-117) U/L Troponin I 0.129 H* (0-0.045) ng/ml Total Protein 7.1 (6.4-8.2) gm/dl Albumin 2.7 L (3.4-5.0) gm/dl Globulin 4.4 H (2.5-4.0) gm/dl Albumin/Globulin Ratio 0.6 L (0.9-2) Lipase 1052 H (73-393) U/L Procalcitonin (0-0.5) ng/ml COVID-19 Eval Order SARS-CoV-2 (PCR) (Negative) Diagnostic Findings CTAP: Lower chest: Minimal atelectasis and septal thickening is seen at dependent portions of bilateral lower lobes. Liver: The unenhanced liver is normal in size, contour, and attenuation. There is no intrahepatic biliary ductal dilatation. Gallbladder: Is fluid-filled with mild thickening of its wall and surrounding fat stranding. Common bile duct is dilated measuring 1.4 cm in diameter. There is obstructive 4 mm calculus within distal aspect of the common bile duct (3/205). Fat stranding within the right upper quadrant is seen extending to the second portion of the duodenum, surrounds right kidney and associated with thickening of the right hemidiaphragm. Spleen: Normal in size and attenuation. Pancreas: Unremarkable. Adrenal glands: Left adrenal gland is unremarkable. Right adrenal gland is enlarged measuring 3.7 cm in size and shows internal 2.2 cm hyperattenuating component which is close in attenuation to lumen of aorta and might represent hemorrhage versus heterogeneous hyperattenuating nodule. Kidneys: The unenhanced kidneys are normal in size without hydronephrosis. Multiple punctate nonobstructive calculi are seen within bilateral renal pelvises. Hemorrhagic cyst is seen within the posterior aspect of the right renal parenchyma measuring approximately 1.3 cm in size. 2.5 cm cyst is seen within inferior aspect of the right renal cortex. Bowel: Moderate hiatal hernia is seen. Bowel loops are nondilated. Fat stranding is seen surrounding descending portion of the duodenum, likely reactive. No definite duodenal wall thickening is seen. Appendix is not well seen. Diverticulosis of descending and sigmoid colon is seen without evidence of diverticulitis. Large stool burden is seen within pelvic region. Peritoneum: There is no intraperitoneal free air or abdominal ascites. Vasculature: Abdominal aorta is normal in caliber with scattered calcifications of its wall. Adenopathy: Multiple small retroperitoneal lymph nodes are seen measuring less than 1 cm in short axis, nonpathological by CT size criteria. Pelvic viscera: Urinary bladder is partially decompressed. Prostate gland is not significantly enlarged. Skeletal structures: Multilevel degenerative changes of the spine. No definite aggressive osseous lesions are seen. IMPRESSION: 1. Obstructive 4 mm calculus within distal aspect of the common bile duct associated with common bile duct dilatation and cholecystitis and cholangitis. Report will be sent to emergency Department. 2. Questionable heterogeneous right adrenal nodule which might also represent hemorrhage. Please correlate this findings with clinical presentation. 3. Bilateral nonobstructive nephrolithiasis. Cystic lesions within the right kidney, see discussion above. 4. Nondilated loops of bowel. Diverticulosis of sigmoid colon. Large amount of stool within the rectum, might represent fecal impaction. 5. Atherosclerosis. 6. The rest of findings as above. CXR: Cardiac silhouette is upper limits of normal in size. Calcified plaque of the thoracic aorta. Mild blunting of the right costophrenic angle with subsegmental bibasilar atelectasis. No pneumothorax, large pleural effusion or overt pulmonary edema. Degenerative changes of the shoulders and spine. IMPRESSION: Blunting of the right costophrenic angle is suggestive of atelectasis versus trace effusion.
[2020-12-02] MEDS: POTASSIUM CHLORIDE / WTR 10 MEQ/100 ML PLCT IV SCH ×8 (11:10→21:15)
--- NOTE | 2020-12-02 11:28 | History & Physical Report ---
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 Starr - Started on levophed IV in the ER -Continue IV Zosyn, follow blood cultures, WBC 21.3, LA 8.9 and repeat 8.2 -GI consulted, plans for ERCP this afternoon after FFP, received 10 mg IV vitamin K -General surgery consulted for possible cholecystectomy after ERCP -Trop 0.129, trend - LFTs : Tbili- 7.1, AST 153, ALT 222, Alk phos 233, lipase 1052, procal 37.23 - COVID-19 neg, received vaccine (2) HTN (hypertension): Plan: - BP hypotensive, holding antihypertensive medications (3) HLD (hyperlipidemia): Plan: Holding statin for now, resume once able to tolerate p.o. (4) CAD (coronary artery disease): Plan: -Last echo was in 2007, Left ventricular wall thickness, LV normal systolic function, left atrial enlargement is mild, trace mitral and mild tricuspid insufficiency, suggestion of mild elevation of pulmonary pressure -Holding metoprolol, felodipine, lisinopril, hctz (5) Chronic atrial fibrillation: Plan: - Holding Coumadin as above, currently rate controlled, holding metoprolol for now - resume if BP improves and pt is stabilized to prevent rebound tachycardia. (6) Supratherapeutic INR: Plan: -INR of 9.9 on admission, given vitamin K 10 mg IV, FFP planned to be given 30 minutes prior to ERCP this afternoon -Holding Coumadin, at home takes 5 mg on Sun//Th, and 2.5 mg on all other days, last dose taken was yesterday. (7) Hyponatremia: Plan: -Sodium of 133, no history of hyponatremia in the past, follow BMP for imp rovement, consider urine osm, urine sodium, serum osm but likely due to dehydration and acute poor po intake vs SIADH -IVF as above (8) MAYUR (acute kidney injury): Plan: - Cr. 2.17, BUN 22, poor oral intake, follow urinalysis, and urine culture -Volume resuscitation as above, follow repeat BMP (9) Hx of pulmonary embolus: Plan: - Holding Coumadin with supratherapeutic INR as listed above (10) History of CVA (cerebrovascular accident): Plan: - hx of such, PT/OT consults DVT ppx: - teds, scds CODE: Conditional code, no intubation Dispo: From home, likely to remain in the hospital x 2 days. History of Present Illness Primary Care Provider: Karson Fonseca MD This is a 85 yo M with PMhx of chronic afib, CAD, HTN, HLD, hx of CVA, and pulmonary embolism who presents with acute illness which started approximately 1 week ago. He has progressively been getting worse, noting that he has right upper quadrant abdominal pain, tenderness and has been nauseous after he eats, patient admits to vomiting 4 times in the past week after consuming any type of food. He has been tolerating some liquids however his increase has diminished over the week. Reports that he cannot remember urinating at all yet today, but last time he did it was very dark. Denies hematuria. Bowels last moved yesterday and were dark in color, denies hematochezia, BRBPR. Denies fever however did not take his temperature in the past week, reports sweats and chills. His daughter is present with him at bedside and supports the history. She had plan to take him to his PCP this morning due to worsening status over the past few days however decided to bring him to the ER instead. He typically does not require any oxygen at home however this morning sounded more short of breath to the daughter, and is currently requiring 8 L on oxygen mask in the ER, O2 sats are in the mid nineties. Allergies Allergy/AdvReac Type Severity Reaction Status Date / Time No Known Allergies Allergy Unknown Verified 12/02/20 09:11 Home Medications Medication Instructions Recorded Confirmed Type atorvastatin 10 mg tablet (Lipitor) 0 mg PO HS 12/02/20 12/02/20 History felodipine 5 mg tablet,extended 5 mg PO QAM 12/02/20 12/02/20 History release 24 hr hydrochlorothiazide 12.5 mg capsule 12.5 mg PO QAM 12/02/20 12/02/20 History lisinopril 20 mg tablet (Prinivil) 20 mg PO BID 12/02/20 12/02/20 History metoprolol tartrate 50 mg tablet 25 mg PO BID 12/02/20 12/02/20 History (Lopressor) multivitamin (Daily Multi-Vitamin) 1 tab PO QAM 12/02/20 12/02/20 History omega 0-ezz-prr-fish oil 1,200 mg 1 cap PO BID 12/02/20 12/02/20 History (144 mg-216 mg) capsule (Fish Oil) warfarin 5 mg tablet (Jantoven) See Rx Instructions .ROUTE .COMPLEX 12/02/20 History Past Med/Surg History Medical History CAD (coronary artery disease) Chronic atrial fibrillation History of CVA (cerebrovascular accident) HLD (hyperlipidemia) HTN (hypertension) Hx of pulmonary embolus Surgical History History of knee replacement Social History Smoking Status: Former smoker Tobacco Type: Cigarettes Hx Alcohol Use: No Hx Substance Use: No Preferred Language: Pashto Communication Ability: Effective Beliefs That Will Affect Care: None Current Living Situation: Alone Other Information That Helps Us Care for You: No Feels Safe at Home: Yes Safety Concerns: Feels Safe At This Time Assistive Devices: None Review of Systems Review of Systems: Constitutional: No fever, + sweats and chills, generalized fatigue and malaise Eyes: No diplopia, no worsening or blurred vision ENT: normal hearing, no trouble swallowing Respiratory: No cough, sputum, + new onset dyspnea on exertion Cardiovascular: No chest pain, tightness or palpitations Abdomen: As per HPI. +pain, +nausea, +vomiting, no diarrhea or constipation Musculoskeletal: No joint pain, calf pain, swelling Neurologic: No weakness, numbness/tingling, or balance problems Psychiatric: No anxiety or depression Skin: No rash or itch Physical Exam Physical Exam: General: awake but falls asleep easily, fatigue, ill appearing, slight jaundice Head: Normocephalic, atraumatic ENT: PERRL, EOMI, no pharyngeal exudate, mucous membranes dry Chest: Clear to auscultation, 8L via oximask, no adventitious breath sounds Cardiac: Regular rate and rhythm, no murmur, no JVD, normal peripheral pulses, good capillary refill Abdominal: NABS x 4 quadrants, soft, nondistended, nontender to palpation, no rebound or guarding Extremities: Normal inspection, no peripheral edema or erythema, calfs nontender to palpation Psych: Normal mood and affect Neuro: AAO x 3, strength intact bilaterally and rated 5/5, no motor deficits, speech is clear, no peripheral sensory deficits Results & Data Results & Data ([facility]) Vital Signs (Past 12 Hours) Vital Signs Temp Pulse Pulse Resp BP BP Pulse Ox 12/02/20 11:15 80 24 104/56 L 93 12/02/20 11:13 91 12/02/20 11:00 86 34 H 92/56 L 91 12/02/20 10:57 81 36 H 81/58 L 91 12/02/20 10:53 88 L 12/02/20 10:39 94 H 36 H 96/51 L 92 12/02/20 10:38 88 36 H 96/51 L 93 12/02/20 09:42 90 24 105/62 95 12/02/20 09:40 32 H 95 12/02/20 09:38 95 H 24 105/62 94 12/02/20 08:36 36.3 C L 90 22 78/54 L 99 Diagnostic Findings Chest X-Ray 12/02/20 08:54 XR chest 1V portable HISTORY: 85 years-old Male SEPSIS acute sepsis COMPARISON: Chest CT 11/03/2008, chest radiograph 12/17/2007 TECHNIQUE: Portable AP view of the chest FINDINGS: Cardiac silhouette is upper limits of normal in size. Calcified plaque of the thoracic aorta. Mild blunting of the right costophrenic angle with subsegmental bibasilar atelectasis. No pneumothorax, large pleural effusion or overt pulmonary edema. Degenerative changes of the shoulders and spine. IMPRESSION: Blunting of the right costophrenic angle is suggestive of atelectasis versus trace effusion. ACT 112: Negative or not required by law. The above report was generated using voice recognition software. It may contain grammatical, syntax or spelling errors. Electronically signed by: Emeterio Stark M.D. 12/02/2020 9:23 AM Abdomen/Pelvis CT 12/02/20 09:50 CT SCAN OF THE ABDOMEN AND PELVIS WITHOUT CONTRAST CLINICAL HISTORY: epigastric/RUQ pain COMPARISON STUDY: No previous studies for comparison. TECHNIQUE: CT scan of the abdomen and pelvis was performed from the lung bases to the proximal femurs. Images are reviewed in the axial, sagittal, and coronal planes. IV contrast was not administered for this examination. A dose lowering technique was utilized adhering to the principles of ALARA. CT DOSE: 1030.84 mGycm FINDINGS: Lower chest: Minimal atelectasis and septal thickening is seen at dependent portions of bilateral lower lobes. Liver: The unenhanced liver is normal in size, contour, and attenuation. There is no intrahepatic biliary ductal dilatation. Gallbladder: Is fluid-filled with mild thickening of its wall and surrounding fat stranding. Common bile duct is dilated measuring 1.4 cm in diameter. There is obstructive 4 mm calculus within distal aspect of the common bile duct (3/205). Fat stranding within the right upper quadrant is seen extending to the second portion of the duodenum, surrounds right kidney and associated with thickening of the right hemidiaphragm. Spleen: Normal in size and attenuation. Pancreas: Unremarkable. Adrenal glands: Left adrenal gland is unremarkable. Right adrenal gland is enlarged measuring 3.7 cm in size and shows internal 2.2 cm hyperattenuating component which is close in attenuation to lumen of aorta and might represent hemorrhage versus heterogeneous hyperattenuating nodule. Kidneys: The unenhanced kidneys are normal in size without hydronephrosis. Multiple punctate nonobstructive calculi are seen within bilateral renal pelvises. Hemorrhagic cyst is seen within the posterior aspect of the right renal parenchyma measuring approximately 1.3 cm in size. 2.5 cm cyst is seen within inferior aspect of the right renal cortex. Bowel: Moderate hiatal hernia is seen. Bowel loops are nondilated. Fat stranding is seen surrounding descending portion of the duodenum, likely reactive. No definite duodenal wall thickening is seen. Appendix is not well seen. Diverticulosis of descending and sigmoid colon is seen without evidence of diverticulitis. Large stool burden is seen within pelvic region. Peritoneum: There is no intraperitoneal free air or abdominal ascites. Vasculature: Abdominal aorta is normal in caliber with scattered calcifications of its wall. Adenopathy: Multiple small retroperitoneal lymph nodes are seen measuring less than 1 cm in short axis, nonpathological by CT size criteria. Pelvic viscera: Urinary bladder is partially decompressed. Prostate gland is not significantly enlarged. Skeletal structures: Multilevel degenerative changes of the spine. No definite aggressive osseous lesions are seen. IMPRESSION: 1. Obstructive 4 mm calculus within distal aspect of the common bile duct associated with common bile duct dilatation and cholecystitis and cholangitis. Report will be sent to emergency Department. 2. Questionable heterogeneous right adrenal nodule which might also represent hemorrhage. Please correlate this findings with clinical presentation. 3. Bilateral nonobstructive nephrolithiasis. Cystic lesions within the right kidney, see discussion above. 4. Nondilated loops of bowel. Diverticulosis of sigmoid colon. Large amount of stool within the rectum, might represent fecal impaction. 5. Atherosclerosis. 6. The rest of findings as above. ACT 112: Negative or not required by law. The above report was generated using voice recognition software. It may contain grammatical, syntax or spelling errors. Electronically signed by: Isaura Perez DO 12/02/2020 10:36 AM Code Status & VTE Plan Code Status DNI but ok for compressions, defibillation, IV medications Supervising Physician Co-Signing Physician Notes 85 yo M with PMhx of chronic afib, CAD, HTN, HLD, hx of CVA, and pulmonary embolism who presents with acute illness which started approximately 1 week ago in the form of belly discomfort associated with weakness and lethargy/decreased appetite/weight loss. Is found to have cholangitis/cholecystitis in the ED, general surgery and GI consulted, underwent ERCP, was in septic shock, ICU consulted. Management per ICU. Upon examination: GENERAL: Alert and oriented x3. NAD, lethargic, on 6L. HEENT: No pallor, no icterus. Pupils equal, round and reactive to light. Oral mucosa moist. NECK: No JVD, no neck masses. HEART: S1 and S2 heard. Regular rate and rhythm. No murmur, no gallop. SBP below 90. RESPIRATORY SYSTEM: Normal AP diameter. No accessory muscle use. No wheezing, no crackles. ABDOMEN: Soft, bowel sounds present, nontender but reports some discomfort in RUQ, no distention. CENTRAL NERVOUS SYSTEM: Alert and oriented x3. No facial droop. Speech is clear. Obeys simple commands. Moves extremities. EXTREMITIES: No edema, no erythema seen. I have seen and examined the patient and have discussed the case with the provider above. I agree with the assessment and plan as stated.
[2020-12-02] MEDS ORDERED: SODIUM CHLORIDE 0.9% 250 ML IV PRN (11:39)
--- NOTE | 2020-12-02 12:21 | Surgery Consultation ---
Date of Consultation December 02, 2020 Assessment & Plan (1) Choledocholithiasis with acute cholecystitis with obstruction: (2) Cholangitis: (3) Dilated cbd, acquired: (4) Supratherapeutic INR: 85 yo male with history of atrial fibrillation on Coumadin, pulomary embolism, stroke, CAD, HTN, HLD with 1 week history of abdominal pain, nausea, vomiting, and shortness of breath. Labs and CT scan concerning for biliary obstruction with leukocytosis of 21K, t. bili elevated at 7, dilated CBD with distal stone causing acute cholangitis and cholecystitis respectively. Septic. Hypotensive and tachypneic in ED. Afebrile. Requiring IV fluids for BP support and now Levophed. Supratherapeutic INR and lactic acidosis of 9. Abdomen is soft , nonrigid, no peritonitis. Plan: Given patient's Choledocholithiasis causing cholangitis and sepsis patient needs urgent ERCP for removal of CBD stone. Once he is hemodynamically stable can discuss cholecystectomy. Patient being admitted to ICU for sepsis and hypotension Keep NPO IV antibiotics IV fluids Pain management as needed Dr. Avendano has seen and examined patient, discussed findings and need for urgent ERCP with patient and his daughter at bedside. Please see addendum for further recommendations/plan. Supervising Physician Co-Signing Physician Notes Pt was personally seen and examined. Portion of history obtained from daughter. Agree with history and physical as above. Currently, appears to be septic from ascending cholangitis. Supratherapeutic INR of 9. On IVF and pressor support, has been given vitamin K. Needs IV antibiotics and urgent ERCP when stable. After the acute infection has been taken care of, we can discuss risks/ benefits of laparoscopic cholecystectomy. History of Present Illness Reason for Consultation: Acute cholecystitis , Choledocholithiasis, and acute cholangitis Requesting Physician: Dr. Wills Attending Physician: Dr. Cox History of Present Illness Atif is an 85 year-old male with history of chronic atrial fibrillation on coumadin, CVA, pulmonary embolus, CAD, HLD, HTN who presented to emergency department today with complaint of abdominal pain, nausea and vomiting x 4 and SOB that has been present for 1 week. Daughter is present at bedside and helps with history. Daughter states he was not feeling well for past week but did not want to come to hospital because of COVID. States he did not look very good today and told him he needed to go to emergency department. Urine has been dark in color. No fevers at home . No recent ill contacts. He is very active and drives on his own. Only surgery in his abdomen was appendectomy. Allergies Allergy/AdvReac Type Severity Reaction Status Date / Time No Known Allergies Allergy Unknown Verified 12/02/20 09:11 Home Medications Medication Instructions Recorded Confirmed Type atorvastatin 10 mg tablet (Lipitor) 0 mg PO HS 12/02/20 12/02/20 History felodipine 5 mg tablet,extended 5 mg PO QAM 12/02/20 12/02/20 History release 24 hr hydrochlorothiazide 12.5 mg capsule 12.5 mg PO QAM 12/02/20 12/02/20 History lisinopril 20 mg tablet (Prinivil) 20 mg PO BID 12/02/20 12/02/20 History metoprolol tartrate 50 mg tablet 25 mg PO BID 12/02/20 12/02/20 History (Lopressor) multivitamin (Daily Multi-Vitamin) 1 tab PO QAM 12/02/20 12/02/20 History omega [id number]-[id number]-fish oil 1,200 mg 1 cap PO BID 12/02/20 12/02/20 History (144 mg-216 mg) capsule (Fish Oil) warfarin 5 mg tablet (Jantoven) See Rx Instructions .ROUTE .COMPLEX 12/02/20 12/02/20 History Patient History Social History Smoking Status: Former smoker Tobacco Type: Cigarettes Preferred Language: Serbian Feels Safe at Home: Yes Review of Systems Review of Systems: All systems reviewed & are unremarkable except as noted in HPI & below Physical Exam Constitutional: + ill appearing, cooperative and + lethargic; no acute distress Respiratory: + tachypneic; no respiratory distress, no labored breathing and no retractions Auscultation: lungs clear to auscultation bilaterally Cardiovascular: RRR, no murmur, no edema Gastrointestinal (Abdomen): Inspection/Auscultation: abdomen normal to inspection and normal bowel sounds; abdomen not distended Percussion/Palpation: abdomen soft and + hernia (reducible umbilical hernia); abdomen nontender, no guarding and abdomen not rigid Skin: no rashes, warm and dry Psychiatric: Orientation: alert and oriented x 3 Results & Data ([facility]) Vital Signs (Past 12 Hours) Vital Signs Temp Pulse Pulse Resp BP BP Pulse Ox 12/02/20 12:03 81 36 H 88/51 L 96 12/02/20 11:53 82 36 H 96/56 L 96 12/02/20 11:15 80 24 104/56 L 93 12/02/20 11:13 91 12/02/20 11:00 86 34 H 92/56 L 91 12/02/20 10:57 81 36 H 81/58 L 91 12/02/20 10:53 88 L 12/02/20 10:39 94 H 36 H 96/51 L 92 12/02/20 10:38 88 36 H 96/51 L 93 12/02/20 09:42 90 24 105/62 95 12/02/20 09:40 32 H 95 12/02/20 09:38 95 H 24 105/62 94 12/02/20 08:36 36.3 C L 90 22 78/54 L 99 Laboratory Results 12/02/20 12/02/20 12/02/20 Range/Units 12:15 11:50 09:36 WBC (4.8-10.8) K/uL RBC (4.7-6.1) M/uL Hgb (14.0-18.0) g/dL Hct (42-52) % MCV (80-100) fL MCH (25-34) pg MCHC (32-36) g/dL RDW Std Deviation (36.4-46.3) fL RDW Coeff of Otilia (11.5-14.5) % Plt Count (130-400) K/uL MPV (7.4-10.4) fL Immature Gran % (Auto) % Neut % (Auto) % Lymph % (Auto) % [place] % (Auto) % Eos % (Auto) % Baso % (Auto) % Neut # (Auto) (1.4-6.5) K/uL Lymph # (Auto) (1.2-3.4) K/uL [place] # (Auto) (0.11-0.59) K/uL Eos # (Auto) (0-0.5) K/uL Baso # (Auto) (0-0.2) K/uL Immature Gran # (Auto) (0.00-0.02) K/uL Toxic Vacuolation PT (9.0-12.0) Seconds INR (0.9-1.1) APTT (21.0-31.0) Seconds PTT Ratio Sodium (136-145) mmol/L Potassium (3.5-5.1) mmol/L Chloride (98-107) mmol/L Carbon Dioxide (21-32) mmol/L Anion Gap (3-11) BUN (7-18) mg/dl Creatinine (0.6-1.4) mg/dl Est Cr Clr Drug Dosing ml/min Est GFR ( Amer) ml/min Est GFR (Non-Af Amer) ml/min BUN/Creatinine Ratio (10-20) Glucose (70-99) mg/dl Lactate 8.2 H* 8.9 H* (0.4-2.0) mmol/L Calcium (8.5-10.1) mg/dl Magnesium (1.8-2.4) mg/dl Total Bilirubin (0.2-1) mg/dl AST (15-37) U/L ALT (12-78) U/L Alkaline Phosphatase (45-117) U/L Troponin I (0-0.045) ng/ml Total Protein (6.4-8.2) gm/dl Albumin (3.4-5.0) gm/dl Globulin (2.5-4.0) gm/dl Albumin/Globulin Ratio (0.9-2) Lipase (73-393) U/L Procalcitonin (0-0.5) ng/ml COVID-19 Eval Order SARS-CoV-2 (PCR) (Negative) Blood Type Pending Antibody Screen Pending 12/02/20 12/02/20 12/02/20 Range/Units 09:30 09:30 09:13 WBC (4.8-10.8) K/uL RBC (4.7-6.1) M/uL Hgb (14.0-18.0) g/dL Hct (42-52) % MCV (80-100) fL MCH (25-34) pg MCHC (32-36) g/dL RDW Std Deviation (36.4-46.3) fL RDW Coeff of Otilia (11.5-14.5) % Plt Count (130-400) K/uL MPV (7.4-10.4) fL Immature Gran % (Auto) % Neut % (Auto) % Lymph % (Auto) % [place] % (Auto) % Eos % (Auto) % Baso % (Auto) % Neut # (Auto) (1.4-6.5) K/uL Lymph # (Auto) (1.2-3.4) K/uL [place] # (Auto) (0.11-0.59) K/uL Eos # (Auto) (0-0.5) K/uL Baso # (Auto) (0-0.2) K/uL Immature Gran # (Auto) (0.00-0.02) K/uL Toxic Vacuolation PT 83.5 H (9.0-12.0) Seconds INR 9.9 H* (0.9-1.1) APTT 39.0 H (21.0-31.0) Seconds PTT Ratio 1.5 Sodium (136-145) mmol/L Potassium (3.5-5.1) mmol/L Chloride (98-107) mmol/L Carbon Dioxide (21-32) mmol/L Anion Gap (3-11) BUN (7-18) mg/dl Creatinine (0.6-1.4) mg/dl Est Cr Clr Drug Dosing ml/min Est GFR ( Amer) ml/min Est GFR (Non-Af Amer) ml/min BUN/Creatinine Ratio (10-20) Glucose (70-99) mg/dl Lactate (0.4-2.0) mmol/L Calcium (8.5-10.1) mg/dl Magnesium (1.8-2.4) mg/dl Total Bilirubin (0.2-1) mg/dl AST (15-37) U/L ALT (12-78) U/L Alkaline Phosphatase (45-117) U/L Troponin I (0-0.045) ng/ml Total Protein (6.4-8.2) gm/dl Albumin (3.4-5.0) gm/dl Globulin (2.5-4.0) gm/dl Albumin/Globulin Ratio (0.9-2) Lipase (73-393) U/L Procalcitonin (0-0.5) ng/ml COVID-19 Eval Order Covid19 at [facility] SARS-CoV-2 (PCR) NEGATIVE (Negative) Blood Type Antibody Screen 12/02/20 12/02/20 12/02/20 Range/Units 09:13 09:13 09:13 WBC 21.30 H (4.8-10.8) K/uL RBC 5.33 (4.7-6.1) M/uL Hgb 16.1 (14.0-18.0) g/dL Hct 47.2 (42-52) % MCV 88.6 (80-100) fL MCH 30.2 (25-34) pg MCHC 34.1 (32-36) g/dL RDW Std Deviation 47.7 H (36.4-46.3) fL RDW Coeff of Otilia 14.8 H (11.5-14.5) % Plt Count 181 (130-400) K/uL MPV 11.2 H (7.4-10.4) fL Immature Gran % (Auto) 1.5 % Neut % (Auto) 93.6 % Lymph % (Auto) 2.3 % [place] % (Auto) 2.6 % Eos % (Auto) 0.0 % Baso % (Auto) 0.0 % Neut # (Auto) 19.92 H (1.4-6.5) K/uL Lymph # (Auto) 0.49 L (1.2-3.4) K/uL [place] # (Auto) 0.55 (0.11-0.59) K/uL Eos # (Auto) 0.00 (0-0.5) K/uL Baso # (Auto) 0.01 (0-0.2) K/uL Immature Gran # (Auto) 0.33 H (0.00-0.02) K/uL Toxic Vacuolation 2+ PT (9.0-12.0) Seconds INR (0.9-1.1) APTT (21.0-31.0) Seconds PTT Ratio Sodium 133 L (136-145) mmol/L Potassium 2.6 L (3.5-5.1) mmol/L Chloride 94 L (98-107) mmol/L Carbon Dioxide 24 (21-32) mmol/L Anion Gap 16.0 H (3-11) BUN 22 H (7-18) mg/dl Creatinine 2.17 H (0.6-1.4) mg/dl Est Cr Clr Drug Dosing 29.7 ml/min Est GFR ( Amer) 30.6 ml/min Est GFR (Non-Af Amer) 26.4 ml/min BUN/Creatinine Ratio 10.2 (10-20) Glucose 94 (70-99) mg/dl Lactate (0.4-2.0) mmol/L Calcium 8.8 (8.5-10.1) mg/dl Magnesium 1.9 (1.8-2.4) mg/dl Total Bilirubin 7.1 H (0.2-1) mg/dl AST 153 H (15-37) U/L ALT 222 H (12-78) U/L Alkaline Phosphatase 233 H (45-117) U/L Troponin I 0.129 H* (0-0.045) ng/ml Total Protein 7.1 (6.4-8.2) gm/dl Albumin 2.7 L (3.4-5.0) gm/dl Globulin 4.4 H (2.5-4.0) gm/dl Albumin/Globulin Ratio 0.6 L (0.9-2) Lipase 1052 H (73-393) U/L Procalcitonin 37.23 H (0-0.5) ng/ml COVID-19 Eval Order SARS-CoV-2 (PCR) (Negative) Blood Type Antibody Screen Diagnostic Findings CT SCAN OF THE ABDOMEN AND PELVIS WITHOUT CONTRAST CLINICAL HISTORY: epigastric/RUQ pain COMPARISON STUDY: No previous studies for comparison. TECHNIQUE: CT scan of the abdomen and pelvis was performed from the lung bases to the proximal femurs. Images are reviewed in the axial, sagittal, and coronal planes. IV contrast was not administered for this examination. A dose lowering technique was utilized adhering to the principles of ALARA. CT DOSE: 1030.84 mGycm FINDINGS: Lower chest: Minimal atelectasis and septal thickening is seen at dependent portions of bilateral lower lobes. Liver: The unenhanced liver is normal in size, contour, and attenuation. There is no intrahepatic biliary ductal dilatation. Gallbladder: Is fluid-filled with mild thickening of its wall and surrounding fat stranding. Common bile duct is dilated measuring 1.4 cm in diameter. There is obstructive 4 mm calculus within distal aspect of the common bile duct (3/205). Fat stranding within the right upper quadrant is seen extending to the second portion of the duodenum, surrounds right kidney and associated with thickening of the right hemidiaphragm. Spleen: Normal in size and attenuation. Pancreas: Unremarkable. Adrenal glands: Left adrenal gland is unremarkable. Right adrenal gland is enlarged measuring 3.7 cm in size and shows internal 2.2 cm hyperattenuating component which is close in attenuation to lumen of aorta and might represent hemorrhage versus heterogeneous hyperattenuating nodule. Kidneys: The unenhanced kidneys are normal in size without hydronephrosis. Multiple punctate nonobstructive calculi are seen within bilateral renal pelvises. Hemorrhagic cyst is seen within the posterior aspect of the right renal parenchyma measuring approximately 1.3 cm in size. 2.5 cm cyst is seen within inferior aspect of the right renal cortex. Bowel: Moderate hiatal hernia is seen. Bowel loops are nondilated. Fat stranding is seen surrounding descending portion of the duodenum, likely reactive. No def inite duodenal wall thickening is seen. Appendix is not well seen. Diverticulosis of descending and sigmoid colon is seen without evidence of diverticulitis. Large stool burden is seen within pelvic region. Peritoneum: There is no intraperitoneal free air or abdominal ascites. Vasculature: Abdominal aorta is normal in caliber with scattered calcifications of its wall. Adenopathy: Multiple small retroperitoneal lymph nodes are seen measuring less than 1 cm in short axis, nonpathological by CT size criteria. Pelvic viscera: Urinary bladder is partially decompressed. Prostate gland is not significantly enlarged. Skeletal structures: Multilevel degenerative changes of the spine. No definite aggressive osseous lesions are seen. IMPRESSION: 1. Obstructive 4 mm calculus within distal aspect of the common bile duct associated with common bile duct dilatation and cholecystitis and cholangitis. Report will be sent to emergency Department. 2. Questionable heterogeneous right adrenal nodule which might also represent hemorrhage. Please correlate this findings with clinical presentation. 3. Bilateral nonobstructive nephrolithiasis. Cystic lesions within the right kidney, see discussion above. 4. Nondilated loops of bowel. Diverticulosis of sigmoid colon. Large amount of stool within the rectum, might represent fecal impaction. 5. Atherosclerosis. 6. The rest of findings as above. XR chest 1V portable HISTORY: 85 years-old Male SEPSIS acute sepsis COMPARISON: Chest CT 11/03/2008, chest radiograph 12/17/2007 TECHNIQUE: Portable AP view of the chest FINDINGS: Cardiac silhouette is upper limits of normal in size. Calcified plaque of the thoracic aorta. Mild blunting of the right costophrenic angle with subsegmental bibasilar atelectasis. No pneumothorax, large pleural effusion or overt pulmonary edema. Degenerative changes of the shoulders and spine. IMPRESSION: Blunting of the right costophrenic angle is suggestive of atelectasis versus trace effusion.
[2020-12-02] MEDS ORDERED: NOREPINEPHRINE/D5W 8 MG/508 ML IV ONE (12:23)
[2020-12-02] MEDS ORDERED: STAT IV Infusion **Titration per Protocol STA (12:26)
[2020-12-02] MEDS ORDERED: NOREPINEPHRINE/D5W 8 MG/508 ML BAG IV SCH (12:30)
[2020-12-02] MEDS: ALBUMIN 25% 12.5 GM/50 ML VIAL IV SCH ×2 (13:08→14:52)
[2020-12-02 14:33] LABS: Appearance Urine Cloudy (Clear); Bacteria Urine Automated Negative (Negative); Blood Urine 2+ (Negative); Color Urine Dark Yellow; Epithelial Cell Urine Auto >30 /lpf (0-5); Glucose Urine UA Negative (Negative); Ketones Urine Trace (Negative); Leukocyte Esterase Urine Trace (Negative); Nitrite Urine Positive (Negative); Protein Urine 2+ (Negative); Specific Gravity Urine 1.018 (1.000-1.030); Urobilinogen Urine Negative (Negative); pH Urine 5.5 (4.5-7.5)
[2020-12-02 14:40] LABS: Bilirubin Urine 3+ (Negative)
--- NOTE | 2020-12-02 14:43 | Critical Care Consultation ---
Date of Consultation December 02, 2020 Assessment & Plan (1) Choledocholithiasis with acute cholecystitis with obstruction: Reason Critically Ill: 85-year-old male with cholangitis and sepsis PLAN: CV: Sepsis associated hypotension -Levophed as needed Atrial fibrillation -Long-term anticoagulation with Coumadin Coronary artery disease -Continue home medications Hyperlipidemia -Continue home medications Hypertension -Hold home antihypertensives Fluids/Renal: Acute kidney injury -Continue to follow ID: Sepsis Cholangitis - Zosyn GI/Nutrition: Cholangitis -Anticipate EGD with gastroenterology Heme: Supratherapeutic INR -2 units FFP given prior to DVT prophylaxis: SCDs Endocrine: ICU hyperglycemia protocol Vascular access: Peripheral IVs Code Status: Full code -Patient clarified his CODE STATUS that he did not want long-term mechanical ventilation in event of debilitation -He does desire to undergo aggressive resuscitative efforts in event of cardiac arrest Disposition: ICU (2) Sepsis associated hypotension: (3) Supratherapeutic INR: (4) MAYUR (acute kidney injury): (5) Hyponatremia: (6) Chronic atrial fibrillation: (7) History of CVA (cerebrovascular accident): (8) CAD (coronary artery disease): (9) HLD (hyperlipidemia): (10) HTN (hypertension): Supervising Physician Co-Signing Physician Notes I have personally spent 55 minutes of critical care time in the direct management of this patient. This is a life/limb threatening event. This includes time spent evaluating patient, direct bedside care, chart review, placing orders, interpretation of diagnostic studies, discussion with consultants, patient, and/or family members regarding treatment decisions, as we ll as other required patient management activities. This time is exclusive of all separately billable procedures, and teaching time and separate from and in addition to any other critical care service time. History of Present Illness Reason for Consultation: Sepsis secondary to ascending cholangitis Requesting Physician: Severiano Wills History of Present Illness Patient is an 85-year-old male with a history of atrial fibrillation, coronary artery disease, hypertension, hyperlipidemia history of CVA who presents with worsening abdominal pain for approximately 1 week. Is nauseated after he is eating and has had episodes of emesis. He presented to the emergency department today and was found to have cholangitis. He has been started on Zosyn, he was found to have a supratherapeutic INR from warfarin for atrial fibrillation and he has been given 2 units of FFP he has been seen by surgery as well as gastroenterology and is planning to undergo an EGD after further stabilization of his metabolic derangements. Allergies Allergy/AdvReac Type Severity Reaction Status Date / Time No Known Allergies Allergy Unknown Verified 12/02/20 09:11 Home Medications Medication Instructions Recorded Confirmed Type atorvastatin 10 mg tablet (Lipitor) 0 mg PO HS 12/02/20 12/02/20 History felodipine 5 mg tablet,extended 5 mg PO QAM 12/02/20 12/02/20 History release 24 hr hydrochlorothiazide 12.5 mg capsule 12.5 mg PO QAM 12/02/20 12/02/20 History lisinopril 20 mg tablet (Prinivil) 20 mg PO BID 12/02/20 12/02/20 History metoprolol tartrate 50 mg tablet 25 mg PO BID 12/02/20 12/02/20 History (Lopressor) multivitamin (Daily Multi-Vitamin) 1 tab PO QAM 12/02/20 12/02/20 History omega 1-xos-lff-fish oil 1,200 mg 1 cap PO BID 12/02/20 12/02/20 History (144 mg-216 mg) capsule (Fish Oil) warfarin 5 mg tablet (Jantoven) See Rx Instructions .ROUTE .COMPLEX 12/02/20 12/02/20 History Patient History Medical History (Updated 12/02/20 @ 17:13 by Severiano Wills MD) CAD (coronary artery disease) Chronic atrial fibrillation History of CVA (cerebrovascular accident) HLD (hyperlipidemia) HTN (hypertension) Hx of pulmonary embolus Surgical History (Updated 12/02/20 @ 17:11 by Severiano Wills MD) History of knee replacement Social History Smoking Status: Former smoker Tobacco Type: Cigarettes Hx Alcohol Use: No Hx Substance Use: No Preferred Language: Maori Communication Ability: Effective Beliefs That Will Affect Care: None Current Living Situation: Alone Other Information That Helps Us Care for You: No Feels Safe at Home: Yes Safety Concerns: Feels Safe At This Time Assistive Devices: None Review of Systems Review of Systems: Currently feels improved, no chest pain or shortness of breath Physical Exam 2 Physical Exam: General: Alert. nontoxic. Skin: Warm, dry, Head: Atraumatic Ears, nose, mouth and throat: airway patent Cardiovascular: Normal peripheral perfusion Respiratory: no respiratory distress Gastrointestinal: Non distended, tenderness with deep palpation Musculoskeletal: No deformity Results & Data Results & Data ([facility]) Vital Signs (Past 12 Hours) Vital Signs Temp Pulse Pulse Resp BP BP Pulse Ox 12/02/20 14:11 86 32 H 103/62 96 12/02/20 14:01 82 32 H 108/63 95 12/02/20 13:54 86 34 H 111/61 96 12/02/20 13:47 86 32 H 99/62 L 96 12/02/20 13:38 37.3 C 88 36 H 100/61 96 12/02/20 13:34 82 32 H 121/68 96 12/02/20 13:20 86 32 H 113/63 97 12/02/20 13:09 82 32 H 115/58 L 96 12/02/20 12:58 86 32 H 95/66 L 96 12/02/20 12:54 85 28 H 103/59 L 96 12/02/20 12:47 88 32 H 104/58 L 96 12/02/20 12:37 82 34 H 92/54 L 96 12/02/20 12:30 82 36 H 94/71 L 95 12/02/20 12:03 81 36 H 88/51 L 96 12/02/20 11:53 82 36 H 96/56 L 96 12/02/20 11:15 80 24 104/56 L 93 12/02/20 11:13 91 12/02/20 11:00 86 34 H 92/56 L 91 12/02/20 10:57 81 36 H 81/58 L 91 12/02/20 10:53 88 L 12/02/20 10:39 94 H 36 H 96/51 L 92 12/02/20 10:38 88 36 H 96/51 L 93 12/02/20 09:42 90 24 105/62 95 12/02/20 09:40 32 H 95 12/02/20 09:38 95 H 24 105/62 94 12/02/20 08:36 36.3 C L 90 22 78/54 L 99 Laboratory Results 12/02/20 12/02/20 12/02/20 Range/Units Unknown 12:15 11:50 WBC (4.8-10.8) K/uL RBC (4.7-6.1) M/uL Hgb (14.0-18.0) g/dL Hct (42-52) % MCV (80-100) fL MCH (25-34) pg MCHC (32-36) g/dL RDW Std Deviation (36.4-46.3) fL RDW Coeff of Otilia (11.5-14.5) % Plt Count (130-400) K/uL MPV (7.4-10.4) fL Immature Gran % (Auto) % Neut % (Auto) % Lymph % (Auto) % Dixon % (Auto) % Eos % (Auto) % Baso % (Auto) % Neut # (Auto) (1.4-6.5) K/uL Lymph # (Auto) (1.2-3.4) K/uL Dixon # (Auto) (0.11-0.59) K/uL Eos # (Auto) (0-0.5) K/uL Baso # (Auto) (0-0.2) K/uL Immature Gran # (Auto) (0.00-0.02) K/uL Toxic Vacuolation PT (9.0-12.0) Seconds INR (0.9-1.1) APTT (21.0-31.0) Seconds PTT Ratio Sodium (136-145) mmol/L Potassium (3.5-5.1) mmol/L Chloride (98-107) mmol/L Carbon Dioxide (21-32) mmol/L Anion Gap (3-11) BUN (7-18) mg/dl Creatinine (0.6-1.4) mg/dl Est Cr Clr Drug Dosing ml/min Est GFR ( Amer) ml/min Est GFR (Non-Af Amer) ml/min BUN/Creatinine Ratio (10-20) Glucose (70-99) mg/dl Lactate 8.2 H* (0.4-2.0) mmol/L Calcium (8.5-10.1) mg/dl Magnesium (1.8-2.4) mg/dl Total Bilirubin (0.2-1) mg/dl AST (15-37) U/L ALT (12-78) U/L Alkaline Phosphatase (45-117) U/L Troponin I (0-0.045) ng/ml Total Protein (6.4-8.2) gm/dl Albumin (3.4-5.0) gm/dl Globulin (2.5-4.0) gm/dl Albumin/Globulin Ratio (0.9-2) Lipase (73-393) U/L Procalcitonin (0-0.5) ng/ml Urine Color Dark Yellow Urine Appearance Cloudy A (Clear) Urine pH 5.5 (4.5-7.5) Ur Specific [place] 1.018 (1.000-1.030) Urine Protein 2+ H (Negative) Urine Glucose (UA) Negative (Negative) Urine Ketones Trace H (Negative) Urine Blood 2+ H (Negative) Urine Nitrite Positive A (Negative) Urine Bilirubin 3+ H (Negative) Urine Urobilinogen Negative (Negative) Ur Leukocyte Esterase Trace H (Negative) Urine WBC (Auto) 10-30 H (0-5) /hpf Urine RBC (Auto) 10-30 H (0-4) /hpf U Hyaline Cast (Auto) 10-30 H (0-5) /lpf U Epithel Cells (Auto) >30 H (0-5) /lpf Urine Bacteria (Auto) Negative (Negative) Ur Renal Epithelial Cell Not Reportable Granular Casts 5-10 H (0) /lpf COVID-19 Eval Order SARS-CoV-2 (PCR) (Negative) Blood Type O Positive Antibody Screen NEGATIVE 12/02/20 12/02/20 12/02/20 Range/Units 09:36 09:30 09:30 WBC (4.8-10.8) K/uL RBC (4.7-6.1) M/uL Hgb (14.0-18.0) g/dL Hct (42-52) % MCV (80-100) fL MCH (25-34) pg MCHC (32-36) g/dL RDW Std Deviation (36.4-46.3) fL RDW Coeff of Otilia (11.5-14.5) % Plt Count (130-400) K/uL MPV (7.4-10.4) fL Immature Gran % (Auto) % Neut % (Auto) % Lymph % (Auto) % Dixon % (Auto) % Eos % (Auto) % Baso % (Auto) % Neut # (Auto) (1.4-6.5) K/uL Lymph # (Auto) (1.2-3.4) K/uL Dixon # (Auto) (0.11-0.59) K/uL Eos # (Auto) (0-0.5) K/uL Baso # (Auto) (0-0.2) K/uL Immature Gran # (Auto) (0.00-0.02) K/uL Toxic Vacuolation PT (9.0-12.0) Seconds INR (0.9-1.1) APTT (21.0-31.0) Seconds PTT Ratio Sodium (136-145) mmol/L Potassium (3.5-5.1) mmol/L Chloride (98-107) mmol/L Carbon Dioxide (21-32) mmol/L Anion Gap (3-11) BUN (7-18) mg/dl Creatinine (0.6-1.4) mg/dl Est Cr Clr Drug Dosing ml/min Est GFR ( Amer) ml/min Est GFR (Non-Af Amer) ml/min BUN/Creatinine Ratio (10-20) Glucose (70-99) mg/dl Lactate 8.9 H* (0.4-2.0) mmol/L Calcium (8.5-10.1) mg/dl Magnesium (1.8-2.4) mg/dl Total Bilirubin (0.2-1) mg/dl AST (15-37) U/L ALT (12-78) U/L Alkaline Phosphatase (45-117) U/L Troponin I (0-0.045) ng/ml Total Protein (6.4-8.2) gm/dl Albumin (3.4-5.0) gm/dl Globulin (2.5-4.0) gm/dl Albumin/Globulin Ratio (0.9-2) Lipase (73-393) U/L Procalcitonin (0-0.5) ng/ml Urine Color Urine Appearance (Clear) Urine pH (4.5-7.5) Ur Specific [place] (1.000-1.030) Urine Protein (Negative) Urine Glucose (UA) (Negative) Urine Ketones (Negative) Urine Blood (Negative) Urine Nitrite (Negative) Urine Bilirubin (Negative) Urine Urobilinogen (Negative) Ur Leukocyte Esterase (Negative) Urine WBC (Auto) (0-5) /hpf Urine RBC (Auto) (0-4) /hpf U Hyaline Cast (Auto) (0-5) /lpf U Epithel Cells (Auto) (0-5) /lpf Urine Bacteria (Auto) (Negative) Ur Renal Epithelial Cell Granular Casts (0) /lpf COVID-19 Eval Order Covid19 at [facility] SARS-CoV-2 (PCR) NEGATIVE (Negative) Blood Type Antibody Screen 12/02/20 12/02/20 12/02/20 Range/Units 09:13 09:13 09:13 WBC 21.30 H (4.8-10.8) K/uL RBC 5.33 (4.7-6.1) M/uL Hgb 16.1 (14.0-18.0) g/dL Hct 47.2 (42-52) % MCV 88.6 (80-100) fL MCH 30.2 (25-34) pg MCHC 34.1 (32-36) g/dL RDW Std Deviation 47.7 H (36.4-46.3) fL RDW Coeff of Otilia 14.8 H (11.5-14.5) % Plt Count 181 (130-400) K/uL MPV 11.2 H (7.4-10.4) fL Immature Gran % (Auto) 1.5 % Neut % (Auto) 93.6 % Lymph % (Auto) 2.3 % Dixon % (Auto) 2.6 % Eos % (Auto) 0.0 % Baso % (Auto) 0.0 % Neut # (Auto) 19.92 H (1.4-6.5) K/uL Lymph # (Auto) 0.49 L (1.2-3.4) K/uL Dixon # (Auto) 0.55 (0.11-0.59) K/uL Eos # (Auto) 0.00 (0-0.5) K/uL Baso # (Auto) 0.01 (0-0.2) K/uL Immature Gran # (Auto) 0.33 H (0.00-0.02) K/uL Toxic Vacuolation 2+ PT 83.5 H (9.0-12.0) Seconds INR 9.9 H* (0.9-1.1) APTT 39.0 H (21.0-31.0) Seconds PTT Ratio 1.5 Sodium (136-145) mmol/L Potassium (3.5-5.1) mmol/L Chloride (98-107) mmol/L Carbon Dioxide (21-32) mmol/L Anion Gap (3-11) BUN (7-18) mg/dl Creatinine (0.6-1.4) mg/dl Est Cr Clr Drug Dosing ml/min Est GFR ( Amer) ml/min Est GFR (Non-Af Amer) ml/min BUN/Creatinine Ratio (10-20) Glucose (70-99) mg/dl Lactate (0.4-2.0) mmol/L Calcium (8.5-10.1) mg/dl Magnesium (1.8-2.4) mg/dl Total Bilirubin (0.2-1) mg/dl AST (15-37) U/L ALT (12-78) U/L Alkaline Phosphatase (45-117) U/L Troponin I (0-0.045) ng/ml Total Protein (6.4-8.2) gm/dl Albumin (3.4-5.0) gm/dl Globulin (2.5-4.0) gm/dl Albumin/Globulin Ratio (0.9-2) Lipase (73-393) U/L Procalcitonin 37.23 H (0-0.5) ng/ml Urine Color Urine Appearance (Clear) Urine pH (4.5-7.5) Ur Specific [place] (1.000-1.030) Urine Protein (Negative) Urine Glucose (UA) (Negative) Urine Ketones (Negative) Urine Blood (Negative) Urine Nitrite (Negative) Urine Bilirubin (Negative) Urine Urobilinogen (Negative) Ur Leukocyte Esterase (Negative) Urine WBC (Auto) (0-5) /hpf Urine RBC (Auto) (0-4) /hpf U Hyaline Cast (Auto) (0-5) /lpf U Epithel Cells (Auto) (0-5) /lpf Urine Bacteria (Auto) (Negative) Ur Renal Epithelial Cell Granular Casts (0) /lpf COVID-19 Eval Order SARS-CoV-2 (PCR) (Negative) Blood Type Antibody Screen 12/02/20 Range/Units 09:13 WBC (4.8-10.8) K/uL RBC (4.7-6.1) M/uL Hgb (14.0-18.0) g/dL Hct (42-52) % MCV (80-100) fL MCH (25-34) pg MCHC (32-36) g/dL RDW Std Deviation (36.4-46.3) fL RDW Coeff of Otilia (11.5-14.5) % Plt Count (130-400) K/uL MPV (7.4-10.4) fL Immature Gran % (Auto) % Neut % (Auto) % Lymph % (Auto) % Dixon % (Auto) % Eos % (Auto) % Baso % (Auto) % Neut # (Auto) (1.4-6.5) K/uL Lymph # (Auto) (1.2-3.4) K/uL Dixon # (Auto) (0.11-0.59) K/uL Eos # (Auto) (0-0.5) K/uL Baso # (Auto) (0-0.2) K/uL Immature Gran # (Auto) (0.00-0.02) K/uL Toxic Vacuolation PT (9.0-12.0) Seconds INR (0.9-1.1) APTT (21.0-31.0) Seconds PTT Ratio Sodium 133 L (136-145) mmol/L Potassium 2.6 L (3.5-5.1) mmol/L Chloride 94 L (98-107) mmol/L Carbon Dioxide 24 (21-32) mmol/L Anion Gap 16.0 H (3-11) BUN 22 H (7-18) mg/dl Creatinine 2.17 H (0.6-1.4) mg/dl Est Cr Clr Drug Dosing 29.7 ml/min Est GFR ( Amer) 30.6 ml/min Est GFR (Non-Af Amer) 26.4 ml/min BUN/Creatinine Ratio 10.2 (10-20) Glucose 94 (70-99) mg/dl Lactate (0.4-2.0) mmol/L Calcium 8.8 (8.5-10.1) mg/dl Magnesium 1.9 (1.8-2.4) mg/dl Total Bilirubin 7.1 H (0.2-1) mg/dl AST 153 H (15-37) U/L ALT 222 H (12-78) U/L Alkaline Phosphatase 233 H (45-117) U/L Troponin I 0.129 H* (0-0.045) ng/ml Total Protein 7.1 (6.4-8.2) gm/dl Albumin 2.7 L (3.4-5.0) gm/dl Globulin 4.4 H (2.5-4.0) gm/dl Albumin/Globulin Ratio 0.6 L (0.9-2) Lipase 1052 H (73-393) U/L Procalcitonin (0-0.5) ng/ml Urine Color Urine Appearance (Clear) Urine pH (4.5-7.5) Ur Specific [place] (1.000-1.030) Urine Protein (Negative) Urine Glucose (UA) (Negative) Urine Ketones (Negative) Urine Blood (Negative) Urine Nitrite (Negative) Urine Bilirubin (Negative) Urine Urobilinogen (Negative) Ur Leukocyte Esterase (Negative) Urine WBC (Auto) (0-5) /hpf Urine RBC (Auto) (0-4) /hpf U Hyaline Cast (Auto) (0-5) /lpf U Epithel Cells (Auto) (0-5) /lpf Urine Bacteria (Auto) (Negative) Ur Renal Epithelial Cell Granular Casts (0) /lpf COVID-19 Eval Order SARS-CoV-2 (PCR) (Negative) Blood Type Antibody Screen Medications Administered Medication List Potassium Chloride (K Patrick / Wtr) 10 meq in 100 mls @ 100 mls/hr IV Q1H JACEK Stop: 12/02/20 16:29 Last Admin: 12/02/20 15:06 Dose: 100 mls/hr Documented by: [id number] Norepinephrine Bitartrate (Levophed/D5w) 8 mg in 508 mls @ 18.84 mls/hr IV .Q24H JACEK; Protocol Stop: 01/01/21 12:29 Last Admin: 12/02/20 12:41 Dose: 0.05 mcg/kg/min, 18.8 mls/hr Documented by: [id number] Cosigned by: [id number] Miscellaneous Information (Piperacill/Tazobac Consult Active) 1 ea N/A UD PRN PRN Reason: Consult Stop: 01/01/21 08:52 Last Admin: 12/02/20 09:44 Dose: 1 ea Documented by: [id number] Discontinued Medications Sodium Chloride (Nss 1000ml) 1,000 mls @ 999 mls/hr IV .Q1H1M JACEK Stop: 12/02/20 09:54 Last Infusion: 12/02/20 12:06 Dose: 0 mls/hr Documented by: [id number] Admin: 12/02/20 09:16 Dose: 999 mls/hr Documented by: [id number] Sodium Chloride (Nss 1000ml) 1,000 mls @ 999 mls/hr IV .Q1H1M JACEK Stop: 12/02/20 11:00 Last Infusion: 12/02/20 12:11 Dose: 0 mls/hr Documented by: [id number] Admin: 12/02/20 09:44 Dose: 999 mls/hr Documented by: [id number] Piperacillin Sod/Tazobactam Sod (Zosyn) 4.5 gm in 120 mls @ 240 mls/hr IV NOW ONE Stop: 12/02/20 09:22 Last Infusion: 12/02/20 10:31 Dose: 0 mls/hr Documented by: [id number] Admin: 12/02/20 09:16 Dose: 240 mls/hr Documented by: [id number] Sodium Chloride (Nss 1000ml) 1,000 mls @ 999 mls/hr IV .Q1M ONE Stop: 12/02/20 11:13 Last Infusion: 12/02/20 12:06 Dose: 0 mls/hr Documented by: [id number] Admin: 12/02/20 10:41 Dose: 999 mls/hr Documented by: [id number] Phytonadione 10 mg/ Sodium (Chloride) 51 mls @ 102 mls/hr IV ONE ONE Stop: 12/02/20 10:44 Last Infusion: 12/02/20 11:14 Dose: 0 mls/hr Documented by: [id number] Admin: 12/02/20 10:37 Dose: 102 mls/hr Documented by: [id number] Potassium Chloride (K Patrick / Wtr) 10 meq in 100 mls @ 100 mls/hr IV Q1H JACEK Stop: 12/02/20 12:29 Last Infusion: 12/02/20 13:49 Dose: 0 mls/hr Documented by: [id number] Admin: 12/02/20 12:10 Dose: 100 mls/hr Documented by: [id number] Infusion: 12/02/20 12:10 Dose: 100 mls/hr Documented by: [id number] Admin: 12/02/20 11:10 Dose: 100 mls/hr Documented by: [id number] Sodium Chloride (Nss 1000ml) 1,000 mls @ 999 mls/hr IV .Q1H1M ONE Stop: 12/02/20 13:26 Last Infusion: 12/02/20 13:50 Dose: 0 mls/hr Documented by: [id number] Admin: 12/02/20 12:32 Dose: 999 mls/hr Documented by: [id number] Albumin Human (Albumin 25%) 12.5 gm in 50 mls @ 50 mls/hr IV Q1H JACEK Stop: 12/02/20 14:44 Last Admin: 12/02/20 14:52 Dose: 50 mls/hr Documented by: [id number] Infusion: 12/02/20 14:08 Dose: 50 mls/hr Documented by: [id number] Admin: 12/02/20 13:08 Dose: 50 mls/hr Documented by: [id number] Miscellaneous (Stat Iv Infusion Titration Per Protocol) 1 ea N/A NOW STA Stop: 12/02/20 12:27 Last Admin: 12/02/20 12:41 Dose: 1 ea Documented by: [id number] Norepinephrine Bitartrate (Norepinephrine/D5w 8 Mg/508 Ml) Confirm Administered Dose 8 mg IV .STK-MED ONE Stop: 12/02/20 12:24 Last Admin: 12/02/20 12:38 Dose: 8 mg Documented by: [id number] Coding Level of Care Code Critical Care 1st 30-74 mins Diagnoses Choledocholithiasis with acute cholecystitis with obstruction K80.43 Supratherapeutic INR R79.1 MAYUR (acute kidney injury) N17.9 Hyponatremia E87.1 Chronic atrial fibrillation I48.20 History of CVA (cerebrovascular accident) Z86.73 CAD (coronary artery disease) I25.10 HLD (hyperlipidemia) E78.5 HTN (hypertension) I10 Sepsis associated hypotension A41.9; I95.9
[2020-12-02] MEDS ORDERED: ONDANSETRON INJ 2 MG/ML 2 ML VIAL IV PRN (15:23)
[2020-12-02] MEDS ORDERED: ACETAMINOPHEN 325 MG TAB PO PRN (15:23)
[2020-12-02] MEDS ORDERED: fentaNYL citrate 100 MCG/2 ML VIAL ONE (15:32)
[2020-12-02] MEDS ORDERED: PROPOFOL IV EMULSION 10 MG/ML 20 ML VIAL IV ONE ×4 (15:32→15:33)
--- NOTE | 2020-12-02 15:56 | Anesthesiology Consultation ---
Date of Service December 02, 2020 Assessment & Plan Chart Review Chart Review: Acceptable Risk for Surgery Consults Requested none History Surgery Operation Date: 12/02/20 12:20 Proposed Procedures p Endoscopic Retrograde Cholangiopancreato - Sunshine Cline MD Height/Weight Height: 6 ft 1 in Weight: 98.9 kg Allergies Allergy/AdvReac Type Severity Reaction Status Date / Time No Known Allergies Allergy Unknown Verified 12/02/20 09:11 Medications Home Medications Medication Instructions Recorded Confirmed Last Taken atorvastatin 10 mg tablet (Lipitor) 0 mg PO HS 12/02/20 12/02/20 12/01/20 felodipine 5 mg tablet,extended 5 mg PO QAM 12/02/20 12/02/20 12/01/20 release 24 hr hydrochlorothiazide 12.5 mg capsule 12.5 mg PO QAM 12/02/20 12/02/20 12/01/20 lisinopril 20 mg tablet (Prinivil) 20 mg PO BID 12/02/20 12/02/20 12/01/20 metoprolol tartrate 50 mg tablet 25 mg PO BID 12/02/20 12/02/20 12/01/20 (Lopressor) multivitamin (Daily Multi-Vitamin) 1 tab PO QAM 12/02/20 12/02/20 12/01/20 omega 4-zom-ela-fish oil 1,200 mg 1 cap PO BID 12/02/20 12/02/20 12/01/20 (144 mg-216 mg) capsule (Fish Oil) warfarin 5 mg tablet (Jantoven) See Rx Instructions .ROUTE .COMPLEX 12/02/20 12/02/20 12/01/20 5 mg Active Medications Generic Name Dose Route Start Last Admin Trade Name Elsie PRN Reason Stop Dose Admin Potassium Chloride 10 meq in 100 mls @ 100 mls/hr 12/02/20 12:30 12/02/20 15:06 K Patrick / Wtr IV 12/02/20 16:29 100 mls/hr Q1H JACEK Administration Norepinephrine Bitartrate 8 mg in 508 mls @ 18.84 mls/hr 12/02/20 12:30 12/02/20 12:41 Levophed/D5w IV 01/01/21 12:29 0.05 mcg/kg/min .Q24H JACEK 18.8 mls/hr Administration Protocol 0.05 MCG/KG/MIN NPO Date Last Intake of Fluids: 12/02/20 Time Last Intake of Fluids: 00:00 Last Intake of Fluids Comment: npo today Date Last Intake of Solids: 11/30/20 Last Intake of Solids Comment: "a couple days" Social History Smoking Status: Former smoker Hx Alcohol Use: No Hx Substance Use: No Physical Exam Vital Signs Last Vital Signs Temp 36.5 C 12/02/20 15:48 Pulse 84 12/02/20 15:48 Resp 30 H 12/02/20 15:48 BP 111/66 12/02/20 15:48 Pulse Ox 95 12/02/20 15:48 Testing Laboratory Results 12/02/20 09:13 12/02/20 09:13 PT 83.5 Seconds (9.0-12.0) H 12/02/20 09:13 INR 9.9 (0.9-1.1) H* 12/02/20 09:13 APTT 39.0 Seconds (21.0-31.0) H 12/02/20 09:13 Urine Color Dark Yellow 12/02/20 Unknown Urine Appearance Cloudy (Clear) A 12/02/20 Unknown Urine pH 5.5 (4.5-7.5) 12/02/20 Unknown Ur Specific [place] 1.018 (1.000-1.030) 12/02/20 Unknown Urine Protein 2+ (Negative) H 12/02/20 Unknown Urine Glucose (UA) Negative (Negative) 12/02/20 Unknown Urine Ketones Trace (Negative) H 12/02/20 Unknown Urine Nitrite Positive (Negative) A 12/02/20 Unknown Ur Leukocyte Esterase Trace (Negative) H 12/02/20 Unknown Urine WBC (Auto) 10-30 /hpf (0-5) H 12/02/20 Unknown Urine RBC (Auto) 10-30 /hpf (0-4) H 12/02/20 Unknown U Hyaline Cast (Auto) 10-30 /lpf (0-5) H 12/02/20 Unknown U Epithel Cells (Auto) >30 /lpf (0-5) H 12/02/20 Unknown Urine Bacteria (Auto) Negative (Negative) 12/02/20 Unknown Blood Type O Positive 12/02/20 12:15 Antibody Screen NEGATIVE 12/02/20 12:15
[2020-12-02] MEDS ORDERED: fentaNYL citrate 100 MCG/2 ML VIAL IV PRN (16:05)
[2020-12-02] MEDS ORDERED: ATROPINE SULFATE 0.1 MG/ML 10ML SYR IV PRN (16:05)
[2020-12-02] MEDS ORDERED: ePHEDrine sulfate 50 MG/ML AMP IV PRN (16:05)
[2020-12-02] MEDS ORDERED: INDOMETHACIN 50 MG SUPP PR ONE (16:11)
[2020-12-02] MEDS: LACTATED RINGER'S 1,000 ML IV SCH (16:23)
[2020-12-02] MEDS: PIPERACILLIN/TAZOBACTAM 4.5 GM in DEXTROSE 5% 100 ML IV SCH ×2 (16:38→22:58)
[2020-12-02 16:45] LABS: INR 1.6 (0.9-1.1); Prothrombin Time 15.9 Seconds (9.0-12.0)
[2020-12-02 17:02] LABS: BUN Creatinine Ratio 13.9 (10-20); Calcium 8.1 mg/dl (8.5-10.1); Est GFR (African American) 38.6 ml/min; Est GFR (Non-African American) 33.3 ml/min; Potassium 2.7 mmol/L (3.5-5.1)
--- NOTE | 2020-12-02 17:16 | Operative Report ---
Post Operative Report Pre & Post Diagnosis Operation Date: 12/02/20 12:20 Pre-Op Diagnosis: Choledocholithiasis with acute cholecystitis with obstruction; Cholangitis Post-Op Diagnosis: Choledocholithiasis with acute cholecystitis with obstruction; Cholangitis I identified the patient and participated in the time-out.: Yes Procedure Operation Date: 12/02/20 12:20 Actual Procedures p Endoscopic Retrograde Cholangiopancreatogram(Not Applicable) - Sunshine Cline MD Surgeon Sunshine Cline MD [employer] None Estimated Blood Loss 0 Findings See Below (CBD stone removed, acute cholangitis, stent placed) Specimens Bile aspirate for microbiology Description of Procedure ERCP I attest to the content of the Intraoperative Record and any orders documented therein. Any exceptions are noted below.
--- NOTE | 2020-12-02 17:42 | GI REPORT ---
Patient Name: Atif Dunbar Procedure Date: 12/02/2020 4:26 PM Date of : 1935 Admit Type: Emergency Department Age: 85 Gender: Male Attending MD: Sunshine Cline MD Procedure: ERCP Providers: Sunshine Cline MD Referring MD: Brooke Chiu Md Indications: For therapy of ascending cholangitis Medicines: General Anesthesia Complications: No immediate complications. Estimated Blood Loss: Estimated blood loss: none. Procedure: Pre-Anesthesia Assessment: - Prior to the procedure, a History and Physical was performed, and patient medications, allergies and sensitivities were reviewed. The patient's tolerance of previous anesthesia was reviewed. - The risks and benefits of the procedure and the sedation options and risks were discussed with the patient. All questions were answered and informed consent was obtained. - Patient identification and proposed procedure were verified prior to the procedure by the physician and the nurse. The procedure was verified in the procedure room. - Pre-procedure physical examination revealed no contraindications to sedation. After obtaining informed consent, the scope was passed under direct vision. Throughout the procedure, the patient's blood pressure, pulse, and oxygen saturations were monitored continuously. The scope was introduced through the mouth, and advanced to the duodenum and used to inject contrast into the bile duct. The ERCP was accomplished without difficulty. The patient tolerated the procedure well. Findings: The scraper operator film was normal. The esophagus was successfully intubated under direct vision. The scope was advanced to a normal major papilla in the descending duodenum without detailed examination of the pharynx, larynx and associated structures, and upper GI tract. The upper GI tract was grossly normal. Pus was emerging from the major papilla. A 0.035 inch straight standard wire was passed into the biliary tree. The Fusion OMNI sphincterotome was passed over the guidewire and the bile duct was then deeply cannulated. Bile aspirated prior to injection and sent for microbiology culture. Contrast was injected. I personally interpreted the bile duct images. Ductal flow of contrast was adequate. Image quality was adequate. Contrast extended to the main bile duct. Opacification of the entire biliary tree was successful. The maximum diameter of the ducts was 12 mm. Biliary sphincterotomy was made with a monofilament traction (standard) sphincterotome using ERBE electrocautery. There was no post-sphincterotomy bleeding. The biliary tree was swept with a 12 mm balloon starting at the bifurcation. One stone was removed. No stones remained. Pus was swept from the duct. One 10 Fr by 8 cm plastic biliary stent with a single external flap and a single internal flap was placed into the common bile duct. Bile flowed through the stent. The stent was in good position. Impression: - Ascending cholangitis. - Choledocholithiasis was found. Complete removal was accomplished by biliary sphincterotomy and balloon extraction. - One plastic biliary stent was placed into the common bile duct. Recommendation: - Return patient to ICU for ongoing care. - Follow up culture and sensitivity and adjust ABx as needed. - Refer to a surgeon for cholecystectomy this admission once clinically stable and prior to discharge. - Repeat ERCP in 6 weeks to remove stent. Sunshine Cline MD 12/02/2020 5:42:01 PM This report has been signed electronically. Note Initiated On: 12/02/2020 4:26 PM Number of Addenda: 0 I attest to the content of the Intraoperative Record and orders documented therein, exceptions below {[id number]}
[2020-12-02] MEDS: ATORVASTATIN 10 MG TAB PO SCH (20:28)
--- NOTE | 2020-12-02 21:51 | Fluoroscopy Report ---
INTRAOPERATIVE RADIOGRAPHS CLINICAL HISTORY: ERCP. Fluoroscopy time: 37 seconds. FINDINGS: 5 spot fluoroscopic views of the right upper quadrant from an ERCP procedure are correlated with abdominal CT dated 12/02/2020. The initial image shows a catheter in the common bile duct. The c ommon bile duct is dilated. There is no significant intrahepatic biliary ductal dilatation. A balloon sweep of the common duct is performed. The final image shows a common bile duct stent in place. IMPRESSION: Intraoperative ERCP images showing common bile duct stent placement as above. See operati ve report for detailed findings. Electronically signed by: Richard Smiley M.D. 12/02/2020 9:50 PM
--- NOTE | 2020-12-03 00:10 | Anesthesiology Progress Note ---
Date of Service December 03, 2020 Anesthesia Post Procedure Vital Signs Vital Signs: Temp Pulse Pulse Pulse Resp BP BP 12/03/20 00:00 79 12/02/20 23:24 79 18 104/61 12/02/20 23:09 77 24 114/75 12/02/20 23:04 36.5 C 79 25 H 120/83 12/02/20 22:59 85 18 111/67 12/02/20 22:54 86 21 114/67 12/02/20 22:49 75 21 121/65 12/02/20 22:00 37.3 C 12/02/20 21:04 71 20 115/70 12/02/20 20:34 74 27 H 114/60 12/02/20 20:04 76 27 H 108/67 12/02/20 19:34 76 27 H 101/63 12/02/20 19:04 77 19 105/62 12/02/20 18:34 68 24 102/63 12/02/20 18:04 75 21 101/63 12/02/20 17:51 37.1 C 78 17 101/62 12/02/20 17:41 37 C 75 25 H 102/62 12/02/20 17:32 24 103/63 12/02/20 17:31 37 C 80 24 103/63 12/02/20 17:29 72 30 H 108/68 12/02/20 16:23 37 C 78 27 H 113/64 12/02/20 16:15 36.9 C 81 28 H 112/66 12/02/20 16:08 36.5 C 86 30 H 98/62 L 12/02/20 16:07 29 H 112/66 12/02/20 15:48 36.5 C 84 30 H 111/66 12/02/20 15:45 36.8 C 79 30 H 111/66 12/02/20 15:38 79 28 H 111/66 12/02/20 15:31 75 25 H 94/60 L 12/02/20 15:30 36.9 C 82 28 H 106/56 L 12/02/20 15:15 36.8 C 86 18 98/62 L 12/02/20 15:07 81 30 H 111/72 12/02/20 14:18 88 99/60 L 12/02/20 14:11 86 32 H 103/62 12/02/20 14:01 82 32 H 108/63 12/02/20 13:54 86 34 H 111/61 12/02/20 13:47 86 32 H 99/62 L 12/02/20 13:38 37.3 C 88 36 H 100/61 12/02/20 13:34 82 32 H 121/68 12/02/20 13:20 86 32 H 113/63 12/02/20 13:09 82 32 H 115/58 L 12/02/20 12:58 86 32 H 95/66 L 12/02/20 12:54 85 28 H 103/59 L 12/02/20 12:47 88 32 H 104/58 L 12/02/20 12:37 82 34 H 92/54 L 12/02/20 12:30 82 36 H 94/71 L 12/02/20 12:03 81 36 H 88/51 L 12/02/20 11:53 82 36 H 96/56 L 12/02/20 11:15 80 24 104/56 L 12/02/20 11:13 12/02/20 11:00 86 34 H 92/56 L 12/02/20 10:57 81 36 H 81/58 L 12/02/20 10:53 12/02/20 10:39 94 H 36 H 96/51 L 12/02/20 10:38 88 36 H 96/51 L 12/02/20 09:42 90 24 105/62 12/02/20 09:40 32 H 12/02/20 09:38 95 H 24 105/62 12/02/20 08:36 36.3 C L 90 22 78/54 L Pulse Ox Pulse Ox 12/03/20 00:00 90 12/02/20 23:24 89 L 12/02/20 23:09 90 12/02/20 23:04 91 12/02/20 22:59 90 12/02/20 22:54 91 12/02/20 22:49 89 L 12/02/20 22:00 12/02/20 21:04 92 12/02/20 20:34 91 12/02/20 20:04 93 12/02/20 19:34 93 12/02/20 19:04 92 12/02/20 18:34 92 12/02/20 18:04 12/02/20 17:51 94 09/24/21 17:41 95 12/02/20 17:32 92 12/02/20 17:31 94 12/02/20 17:29 92 12/02/20 16:23 95 12/02/20 16:15 94 12/02/20 16:08 95 12/02/20 16:07 94 12/02/20 15:48 95 12/02/20 15:45 95 12/02/20 15:38 95 12/02/20 15:31 95 12/02/20 15:30 94 12/02/20 15:15 96 12/02/20 15:07 96 12/02/20 14:18 96 12/02/20 14:11 96 12/02/20 14:01 95 12/02/20 13:54 96 12/02/20 13:47 96 12/02/20 13:38 96 12/02/20 13:34 96 12/02/20 13:20 97 12/02/20 13:09 96 12/02/20 12:58 96 12/02/20 12:54 96 12/02/20 12:47 96 12/02/20 12:37 96 12/02/20 12:30 95 12/02/20 12:03 96 12/02/20 11:53 96 12/02/20 11:15 93 12/02/20 11:13 91 12/02/20 11:00 91 12/02/20 10:57 91 12/02/20 10:53 88 L 12/02/20 10:39 92 12/02/20 10:38 93 12/02/20 09:42 95 12/02/20 09:40 95 12/02/20 09:38 94 12/02/20 08:36 99 Transfer of Care Handoff Completed per policy Notes Mental Status: alert / awake / arousable and participated in evaluation Patient Amnestic to Procedure: Yes Nausea / Vomiting: adequately controlled Pain: adequately controlled Airway Patency, RR, SpO2: stable & adequate BP & HR: stable & adequate Hydration State: stable & adequate Anesthetic Complications: no major complications apparent
[2020-12-03] MEDS: LACTATED RINGER'S 1,000 ML IV SCH ×2 (01:44→09:57)
[2020-12-03 06:00] LABS: Hematocrit (blood only) 38.1 % (42-52); Mean Corpuscular Hemoglobin 30.3 pg (25-34); Mean Corpuscular Hgb Conc 34.1 g/dL (32-36); Mean Corpuscular Volume 88.8 fL (80-100); Mean Platelet Volume 12.1 fL (7.4-10.4); Platelet Count 160 K/uL (130-400); RDW Coefficient of Variation 15.3 % (11.5-14.5); RDW Standard Deviation 49.5 fL (36.4-46.3); Red Blood Count 4.29 M/uL (4.7-6.1); White Blood Count 22.96 K/uL (4.8-10.8)
[2020-12-03 06:43] LABS: Albumin Globulin Ratio 0.6 (0.9-2); Albumin Level 2.3 gm/dl (3.4-5.0); BUN Creatinine Ratio 18.7 (10-20); Bilirubin,Total 4.6 mg/dl (0.2-1); Calcium 8.1 mg/dl (8.5-10.1); Est GFR (African American) 50.7 ml/min; Est GFR (Non-African American) 43.7 ml/min; Globulin 3.7 gm/dl (2.5-4.0)
[2020-12-03 08:09] LABS: Magnesium 1.9 mg/dl (1.8-2.4); Potassium 3.2 mmol/L (3.5-5.1)
[2020-12-03] MEDS ORDERED: POTASSIUM CHLORIDE CRTAB 20 MEQ TABCR PO STA (08:28)
--- NOTE | 2020-12-03 08:32 | Critical Care Progress Note ---
Date of Service December 03, 2020 Assessment & Plan (1) Choledocholithiasis with acute cholecystitis with obstruction: Plan: Reason Critically Ill: 85-year-old male with cholangitis and sepsis PLAN: Respiratory: Acute hypoxic respiratory failure -Most likely secondary from aggressive fluid resuscitation -Discontinue additional fluids and diuresis CV: Sepsis associated hypotension: Resolved -Gentle diuresis today Atrial fibrillation -Long-term anticoagulation with Coumadin Coronary artery disease -Continue home medications Hyperlipidemia -Continue home medications Hypertension -Hold home antihypertensives Fluids/Renal: Acute kidney injury: Improving -Continue to follow ID: Sepsis: Improved Cholangitis - Zosyn continue until sensitivities GI/Nutrition: Cholangitis: Underwent EGD Heme: Supratherapeutic INR: Resolved -2 units FFP given prior to EGD DVT prophylaxis: Heparin 75,000 3 times daily Endocrine: ICU hyperglycemia protocol Vascular access: Peripheral IVs Code Status: Full code -Patient clarified his CODE STATUS that he did not want long-term mechanical ventilation in event of debilitation -He does desire to undergo aggressive resuscitative efforts in event of cardiac arrest Disposition: Stable for downgrade out of ICU (2) Sepsis associated hypotension: (3) Supratherapeutic INR: (4) MAYUR (acute kidney injury): (5) Hyponatremia: (6) Chronic atrial fibrillation: (7) History of CVA (cerebrovascular accident): (8) CAD (coronary artery disease): (9) HLD (hyperlipidemia): (10) HTN (hypertension): Admission and Anticipated Discharge Date Admission Date: December 02, 2020 Subjective Patient feels well, would like to try something small for breakfast Physical Exam Physical Exam: General: Alert. nontoxic. Skin: Warm, dry, Head: Atraumatic Ears, nose, mouth and throat: airway patent Cardiovascular: Normal peripheral perfusion Respiratory: no respiratory distress Gastrointestinal: Non distended, tenderness with deep palpation Musculoskeletal: No deformity Results & Data Results & Data ([facility]) Vital Signs (Past 12 Hours) Vital Signs Temp Pulse Resp BP Pulse Ox Pulse Ox 12/03/20 06:30 74 26 H 111/64 91 12/03/20 06:00 75 22 108/63 90 12/03/20 05:30 77 21 117/70 91 12/03/20 05:00 71 20 105/66 92 12/03/20 04:30 73 22 105/69 91 12/03/20 04:00 67 18 95/69 L 93 12/03/20 03:45 36.4 C L 67 18 94/64 L 92 12/03/20 03:30 66 17 103/65 91 12/03/20 03:15 68 17 105/62 92 12/03/20 03:00 71 18 100/63 91 12/03/20 02:45 66 18 102/63 92 12/03/20 02:30 75 21 102/56 L 92 12/03/20 02:15 70 16 99/59 L 93 12/03/20 02:00 66 18 97/58 L 93 12/03/20 01:45 36.5 C 74 19 101/63 92 12/03/20 01:40 73 19 100/57 L 93 12/03/20 01:35 66 19 99/60 L 93 12/03/20 01:30 68 19 95/58 L 93 12/03/20 01:25 73 19 90/59 L 93 12/03/20 01:20 73 17 98/60 L 94 12/03/20 01:15 76 16 100/62 94 12/03/20 01:10 63 17 90/65 L 94 12/03/20 01:05 70 18 94/67 L 93 12/03/20 01:00 74 19 96/59 L 93 12/03/20 00:55 66 17 93/60 L 94 12/03/20 00:50 72 18 97/60 L 93 12/03/20 00:45 70 18 95/61 L 93 12/03/20 00:40 73 18 101/59 L 92 12/03/20 00:35 79 18 91/63 L 93 12/03/20 00:24 74 20 89/60 L 90 12/03/20 00:09 70 18 98/59 L 91 12/03/20 00:00 79 90 12/02/20 23:54 71 20 100/64 90 12/02/20 23:39 66 19 93/62 L 92 12/02/20 23:24 79 18 104/61 89 L 12/02/20 23:09 77 24 114/75 90 12/02/20 23:04 36.5 C 79 25 H 120/83 91 12/02/20 22:59 85 18 111/67 90 12/02/20 22:54 86 21 114/67 91 12/02/20 22:49 75 21 121/65 89 L 12/02/20 22:00 37.3 C 12/02/20 21:04 71 20 115/70 92 12/02/20 20:34 74 27 H 114/60 91 Laboratory Results 12/03/20 12/03/20 12/03/20 Range/Units 06:55 05:16 05:16 WBC 22.96 H (4.8-10.8) K/uL RBC 4.29 L (4.7-6.1) M/uL Hgb 13.0 L D (14.0-18.0) g/dL Hct 38.1 L (42-52) % MCV 88.8 (80-100) fL MCH 30.3 (25-34) pg MCHC 34.1 (32-36) g/dL RDW Std Deviation 49.5 H (36.4-46.3) fL RDW Coeff of Otilia 15.3 H (11.5-14.5) % Plt Count 160 (130-400) K/uL MPV 12.1 H (7.4-10.4) fL Immature Gran % (Auto) % Neut % (Auto) % Lymph % (Auto) % Bay % (Auto) % Eos % (Auto) % Baso % (Auto) % Neut # (Auto) (1.4-6.5) K/uL Lymph # (Auto) (1.2-3.4) K/uL Bay # (Auto) (0.11-0.59) K/uL Eos # (Auto) (0-0.5) K/uL Baso # (Auto) (0-0.2) K/uL Immature Gran # (Auto) (0.00-0.02) K/uL Toxic Vacuolation PT (9.0-12.0) Seconds INR (0.9-1.1) APTT (21.0-31.0) Seconds PTT Ratio Sodium 138 (136-145) mmol/L Potassium 3.2 L D (3.5-5.1) mmol/L Chloride 103 (98-107) mmol/L Carbon Dioxide 28 (21-32) mmol/L Anion Gap 7.0 (3-11) BUN 27 H (7-18) mg/dl Creatinine 1.43 H D (0.6-1.4) mg/dl Est Cr Clr Drug Dosing 45.0 ml/min Est GFR ( Amer) 50.7 ml/min Est GFR (Non-Af Amer) 43.7 ml/min BUN/Creatinine Ratio 18.7 (10-20) Glucose 94 (70-99) mg/dl POC Glucose (70-99) mg/dl Lactate (0.4-2.0) mmol/L Calcium 8.1 L (8.5-10.1) mg/dl Magnesium 1.9 (1.8-2.4) mg/dl Total Bilirubin 4.6 H (0.2-1) mg/dl Direct Bilirubin 3.0 H (0-0.2) mg/dl AST 319 H (15-37) U/L ALT 344 H (12-78) U/L Alkaline Phosphatase 122 H (45-117) U/L Troponin I (0-0.045) ng/ml Total Protein 6.0 L (6.4-8.2) gm/dl Albumin 2.3 L (3.4-5.0) gm/dl Globulin 3.7 (2.5-4.0) gm/dl Albumin/Globulin Ratio 0.6 L (0.9-2) Lipase (73-393) U/L Procalcitonin (0-0.5) ng/ml Urine Color Urine Appearance (Clear) Urine pH (4.5-7.5) Ur Specific [place] (1.000-1.030) Urine Protein (Negative) Urine Glucose (UA) (Negative) Urine Ketones (Negative) Urine Blood (Negative) Urine Nitrite (Negative) Urine Bilirubin (Negative) Urine Urobilinogen (Negative) Ur Leukocyte Esterase (Negative) Urine WBC (Auto) (0-5) /hpf Urine RBC (Auto) (0-4) /hpf U Hyaline Cast (Auto) (0-5) /lpf U Epithel Cells (Auto) (0-5) /lpf Urine Bacteria (Auto) (Negative) Ur Renal Epithelial Cell Granular Casts (0) /lpf Nasal Screen MRSA (PCR) (Negative) COVID-19 Eval Order SARS-CoV-2 (PCR) (Negative) Blood Type Antibody Screen 12/02/20 12/02/20 12/02/20 Range/Units Unknown 23:40 22:27 WBC (4.8-10.8) K/uL RBC (4.7-6.1) M/uL Hgb (14.0-18.0) g/dL Hct (42-52) % MCV (80-100) fL MCH (25-34) pg MCHC (32-36) g/dL RDW Std Deviation (36.4-46.3) fL RDW Coeff of Otilia (11.5-14.5) % Plt Count (130-400) K/uL MPV (7.4-10.4) fL Immature Gran % (Auto) % Neut % (Auto) % Lymph % (Auto) % Bay % (Auto) % Eos % (Auto) % Baso % (Auto) % Neut # (Auto) (1.4-6.5) K/uL Lymph # (Auto) (1.2-3.4) K/uL Bay # (Auto) (0.11-0.59) K/uL Eos # (Auto) (0-0.5) K/uL Baso # (Auto) (0-0.2) K/uL Immature Gran # (Auto) (0.00-0.02) K/uL Toxic Vacuolation PT (9.0-12.0) Seconds INR (0.9-1.1) APTT (21.0-31.0) Seconds PTT Ratio Sodium (136-145) mmol/L Potassium (3.5-5.1) mmol/L Chloride (98-107) mmol/L Carbon Dioxide (21-32) mmol/L Anion Gap (3-11) BUN (7-18) mg/dl Creatinine (0.6-1.4) mg/dl Est Cr Clr Drug Dosing ml/min Est GFR ( Amer) ml/min Est GFR (Non-Af Amer) ml/min BUN/Creatinine Ratio (10-20) Glucose (70-99) mg/dl POC Glucose 108 H (70-99) mg/dl Lactate (0.4-2.0) mmol/L Calcium (8.5-10.1) mg/dl Magnesium (1.8-2.4) mg/dl Total Bilirubin (0.2-1) mg/dl Direct Bilirubin (0-0.2) mg/dl AST (15-37) U/L ALT (12-78) U/L Alkaline Phosphatase (45-117) U/L Troponin I 0.069 H* (0-0.045) ng/ml Total Protein (6.4-8.2) gm/dl Albumin (3.4-5.0) gm/dl Globulin (2.5-4.0) gm/dl Albumin/Globulin Ratio (0.9-2) Lipase (73-393) U/L Procalcitonin (0-0.5) ng/ml Urine Color Dark Yellow Urine Appearance Cloudy A (Clear) Urine pH 5.5 (4.5-7.5) Ur Specific [place] 1.018 (1.000-1.030) Urine Protein 2+ H (Negative) Urine Glucose (UA) Negative (Negative) Urine Ketones Trace H (Negative) Urine Blood 2+ H (Negative) Urine Nitrite Positive A (Negative) Urine Bilirubin 3+ H (Negative) Urine Urobilinogen Negative (Negative) Ur Leukocyte Esterase Trace H (Negative) Urine WBC (Auto) 10-30 H (0-5) /hpf Urine RBC (Auto) 10-30 H (0-4) /hpf U Hyaline Cast (Auto) 10-30 H (0-5) /lpf U Epithel Cells (Auto) >30 H (0-5) /lpf Urine Bacteria (Auto) Negative (Negative) Ur Renal Epithelial Cell Not Reportable Granular Casts 5-10 H (0) /lpf Nasal Screen MRSA (PCR) (Negative) COVID-19 Eval Order SARS-CoV-2 (PCR) (Negative) Blood Type Antibody Screen 12/02/20 12/02/20 12/02/20 Range/Units 16:20 16:20 14:50 WBC (4.8-10.8) K/uL RBC (4.7-6.1) M/uL Hgb (14.0-18.0) g/dL Hct (42-52) % MCV (80-100) fL MCH (25-34) pg MCHC (32-36) g/dL RDW Std Deviation (36.4-46.3) fL RDW Coeff of Otilia (11.5-14.5) % Plt Count (130-400) K/uL MPV (7.4-10.4) fL Immature Gran % (Auto) % Neut % (Auto) % Lymph % (Auto) % Bay % (Auto) % Eos % (Auto) % Baso % (Auto) % Neut # (Auto) (1.4-6.5) K/uL Lymph # (Auto) (1.2-3.4) K/uL Bay # (Auto) (0.11-0.59) K/uL Eos # (Auto) (0-0.5) K/uL Baso # (Auto) (0-0.2) K/uL Immature Gran # (Auto) (0.00-0.02) K/uL Toxic Vacuolation PT 15.9 H (9.0-12.0) Seconds INR 1.6 H (0.9-1.1) APTT (21.0-31.0) Seconds PTT Ratio Sodium 136 (136-145) mmol/L Potassium 2.7 L (3.5-5.1) mmol/L Chloride 100 (98-107) mmol/L Carbon Dioxide 24 (21-32) mmol/L Anion Gap 11.0 (3-11) BUN 25 H (7-18) mg/dl Creatinine 1.79 H D (0.6-1.4) mg/dl Est Cr Clr Drug Dosing 36.0 ml/min Est GFR ( Amer) 38.6 ml/min Est GFR (Non-Af Amer) 33.3 ml/min BUN/Creatinine Ratio 13.9 (10-20) Glucose 101 H (70-99) mg/dl POC Glucose (70-99) mg/dl Lactate (0.4-2.0) mmol/L Calcium 8.1 L (8.5-10.1) mg/dl Magnesium (1.8-2.4) mg/dl Total Bilirubin (0.2-1) mg/dl Direct Bilirubin (0-0.2) mg/dl AST (15-37) U/L ALT (12-78) U/L Alkaline Phosphatase (45-117) U/L Troponin I (0-0.045) ng/ml Total Protein (6.4-8.2) gm/dl Albumin (3.4-5.0) gm/dl Globulin (2.5-4.0) gm/dl Albumin/Globulin Ratio (0.9-2) Lipase (73-393) U/L Procalcitonin (0-0.5) ng/ml Urine Color Urine Appearance (Clear) Urine pH (4.5-7.5) Ur Specific [place] (1.000-1.030) Urine Protein (Negative) Urine Glucose (UA) (Negative) Urine Ketones (Negative) Urine Blood (Negative) Urine Nitrite (Negative) Urine Bilirubin (Negative) Urine Urobilinogen (Negative) Ur Leukocyte Esterase (Negative) Urine WBC (Auto) (0-5) /hpf Urine RBC (Auto) (0-4) /hpf U Hyaline Cast (Auto) (0-5) /lpf U Epithel Cells (Auto) (0-5) /lpf Urine Bacteria (Auto) (Negative) Ur Renal Epithelial Cell Granular Casts (0) /lpf Nasal Screen MRSA (PCR) Negative (Negative) COVID-19 Eval Order SARS-CoV-2 (PCR) (Negative) Blood Type Antibody Screen 12/02/20 12/02/20 12/02/20 Range/Units 12:15 11:50 09:36 WBC (4.8-10.8) K/uL RBC (4.7-6.1) M/uL Hgb (14.0-18.0) g/dL Hct (42-52) % MCV (80-100) fL MCH (25-34) pg MCHC (32-36) g/dL RDW Std Deviation (36.4-46.3) fL RDW Coeff of Otilia (11.5-14.5) % Plt Count (130-400) K/uL MPV (7.4-10.4) fL Immature Gran % (Auto) % Neut % (Auto) % Lymph % (Auto) % Bay % (Auto) % Eos % (Auto) % Baso % (Auto) % Neut # (Auto) (1.4-6.5) K/uL Lymph # (Auto) (1.2-3.4) K/uL Bay # (Auto) (0.11-0.59) K/uL Eos # (Auto) (0-0.5) K/uL Baso # (Auto) (0-0.2) K/uL Immature Gran # (Auto) (0.00-0.02) K/uL Toxic Vacuolation PT (9.0-12.0) Seconds INR (0.9-1.1) APTT (21.0-31.0) Seconds PTT Ratio Sodium (136-145) mmol/L Potassium (3.5-5.1) mmol/L Chloride (98-107) mmol/L Carbon Dioxide (21-32) mmol/L Anion Gap (3-11) BUN (7-18) mg/dl Creatinine (0.6-1.4) mg/dl Est Cr Clr Drug Dosing ml/min Est GFR ( Amer) ml/min Est GFR (Non-Af Amer) ml/min BUN/Creatinine Ratio (10-20) Glucose (70-99) mg/dl POC Glucose (70-99) mg/dl Lactate 8.2 H* 8.9 H* (0.4-2.0) mmol/L Calcium (8.5-10.1) mg/dl Magnesium (1.8-2.4) mg/dl Total Bilirubin (0.2-1) mg/dl Direct Bilirubin (0-0.2) mg/dl AST (15-37) U/L ALT (12-78) U/L Alkaline Phosphatase (45-117) U/L Troponin I (0-0.045) ng/ml Total Protein (6.4-8.2) gm/dl Albumin (3.4-5.0) gm/dl Globulin (2.5-4.0) gm/dl Albumin/Globulin Ratio (0.9-2) Lipase (73-393) U/L Procalcitonin (0-0.5) ng/ml Urine Color Urine Appearance (Clear) Urine pH (4.5-7.5) Ur Specific [place] (1.000-1.030) Urine Protein (Negative) Urine Glucose (UA) (Negative) Urine Ketones (Negative) Urine Blood (Negative) Urine Nitrite (Negative) Urine Bilirubin (Negative) Urine Urobilinogen (Negative) Ur Leukocyte Esterase (Negative) Urine WBC (Auto) (0-5) /hpf Urine RBC (Auto) (0-4) /hpf U Hyaline Cast (Auto) (0-5) /lpf U Epithel Cells (Auto) (0-5) /lpf Urine Bacteria (Auto) (Negative) Ur Renal Epithelial Cell Granular Casts (0) /lpf Nasal Screen MRSA (PCR) (Negative) COVID-19 Eval Order SARS-CoV-2 (PCR) (Negative) Blood Type O Positive Antibody Screen NEGATIVE 12/02/20 12/02/20 12/02/20 Range/Units 09:30 09:30 09:13 WBC (4.8-10.8) K/uL RBC (4.7-6.1) M/uL Hgb (14.0-18.0) g/dL Hct (42-52) % MCV (80-100) fL MCH (25-34) pg MCHC (32-36) g/dL RDW Std Deviation (36.4-46.3) fL RDW Coeff of Otilia (11.5-14.5) % Plt Count (130-400) K/uL MPV (7.4-10.4) fL Immature Gran % (Auto) % Neut % (Auto) % Lymph % (Auto) % Bay % (Auto) % Eos % (Auto) % Baso % (Auto) % Neut # (Auto) (1.4-6.5) K/uL Lymph # (Auto) (1.2-3.4) K/uL Bay # (Auto) (0.11-0.59) K/uL Eos # (Auto) (0-0.5) K/uL Baso # (Auto) (0-0.2) K/uL Immature Gran # (Auto) (0.00-0.02) K/uL Toxic Vacuolation PT 83.5 H (9.0-12.0) Seconds INR 9.9 H* (0.9-1.1) APTT 39.0 H (21.0-31.0) Seconds PTT Ratio 1.5 Sodium (136-145) mmol/L Potassium (3.5-5.1) mmol/L Chloride (98-107) mmol/L Carbon Dioxide (21-32) mmol/L Anion Gap (3-11) BUN (7-18) mg/dl Creatinine (0.6-1.4) mg/dl Est Cr Clr Drug Dosing ml/min Est GFR ( Amer) ml/min Est GFR (Non-Af Amer) ml/min BUN/Creatinine Ratio (10-20) Glucose (70-99) mg/dl POC Glucose (70-99) mg/dl Lactate (0.4-2.0) mmol/L Calcium (8.5-10.1) mg/dl Magnesium (1.8-2.4) mg/dl Total Bilirubin (0.2-1) mg/dl Direct Bilirubin (0-0.2) mg/dl AST (15-37) U/L ALT (12-78) U/L Alkaline Phosphatase (45-117) U/L Troponin I (0-0.045) ng/ml Total Protein (6.4-8.2) gm/dl Albumin (3.4-5.0) gm/dl Globulin (2.5-4.0) gm/dl Albumin/Globulin Ratio (0.9-2) Lipase (73-393) U/L Procalcitonin (0-0.5) ng/ml Urine Color Urine Appearance (Clear) Urine pH (4.5-7.5) Ur Specific [place] (1.000-1.030) Urine Protein (Negative) Urine Glucose (UA) (Negative) Urine Ketones (Negative) Urine Blood (Negative) Urine Nitrite (Negative) Urine Bilirubin (Negative) Urine Urobilinogen (Negative) Ur Leukocyte Esterase (Negative) Urine WBC (Auto) (0-5) /hpf Urine RBC (Auto) (0-4) /hpf U Hyaline Cast (Auto) (0-5) /lpf U Epithel Cells (Auto) (0-5) /lpf Urine Bacteria (Auto) (Negative) Ur Renal Epithelial Cell Granular Casts (0) /lpf Nasal Screen MRSA (PCR) (Negative) COVID-19 Eval Order Covid19 at [facility] SARS-CoV-2 (PCR) NEGATIVE (Negative) Blood Type Antibody Screen 12/02/20 12/02/20 12/02/20 Range/Units 09:13 09:13 09:13 WBC 21.30 H (4.8-10.8) K/uL RBC 5.33 (4.7-6.1) M/uL Hgb 16.1 (14.0-18.0) g/dL Hct 47.2 (42-52) % MCV 88.6 (80-100) fL MCH 30.2 (25-34) pg MCHC 34.1 (32-36) g/dL RDW Std Deviation 47.7 H (36.4-46.3) fL RDW Coeff of Otilia 14.8 H (11.5-14.5) % Plt Count 181 (130-400) K/uL MPV 11.2 H (7.4-10.4) fL Immature Gran % (Auto) 1.5 % Neut % (Auto) 93.6 % Lymph % (Auto) 2.3 % Bay % (Auto) 2.6 % Eos % (Auto) 0.0 % Baso % (Auto) 0.0 % Neut # (Auto) 19.92 H (1.4-6.5) K/uL Lymph # (Auto) 0.49 L (1.2-3.4) K/uL Bay # (Auto) 0.55 (0.11-0.59) K/uL Eos # (Auto) 0.00 (0-0.5) K/uL Baso # (Auto) 0.01 (0-0.2) K/uL Immature Gran # (Auto) 0.33 H (0.00-0.02) K/uL Toxic Vacuolation 2+ PT (9.0-12.0) Seconds INR (0.9-1.1) APTT (21.0-31.0) Seconds PTT Ratio Sodium 133 L (136-145) mmol/L Potassium 2.6 L (3.5-5.1) mmol/L Chloride 94 L (98-107) mmol/L Carbon Dioxide 24 (21-32) mmol/L Anion Gap 16.0 H (3-11) BUN 22 H (7-18) mg/dl Creatinine 2.17 H (0.6-1.4) mg/dl Est Cr Clr Drug Dosing 29.7 ml/min Est GFR ( Amer) 30.6 ml/min Est GFR (Non-Af Amer) 26.4 ml/min BUN/Creatinine Ratio 10.2 (10-20) Glucose 94 (70-99) mg/dl POC Glucose (70-99) mg/dl Lactate (0.4-2.0) mmol/L Calcium 8.8 (8.5-10.1) mg/dl Magnesium 1.9 (1.8-2.4) mg/dl Total Bilirubin 7.1 H (0.2-1) mg/dl Direct Bilirubin (0-0.2) mg/dl AST 153 H (15-37) U/L ALT 222 H (12-78) U/L Alkaline Phosphatase 233 H (45-117) U/L Troponin I 0.129 H* (0-0.045) ng/ml Total Protein 7.1 (6.4-8.2) gm/dl Albumin 2.7 L (3.4-5.0) gm/dl Globulin 4.4 H (2.5-4.0) gm/dl Albumin/Globulin Ratio 0.6 L (0.9-2) Lipase 1052 H (73-393) U/L Procalcitonin 37.23 H (0-0.5) ng/ml Urine Color Urine Appearance (Clear) Urine pH (4.5-7.5) Ur Specific [place] (1.000-1.030) Urine Protein (Negative) Urine Glucose (UA) (Negative) Urine Ketones (Negative) Urine Blood (Negative) Urine Nitrite (Negative) Urine Bilirubin (Negative) Urine Urobilinogen (Negative) Ur Leukocyte Esterase (Negative) Urine WBC (Auto) (0-5) /hpf Urine RBC (Auto) (0-4) /hpf U Hyaline Cast (Auto) (0-5) /lpf U Epithel Cells (Auto) (0-5) /lpf Urine Bacteria (Auto) (Negative) Ur Renal Epithelial Cell Granular Casts (0) /lpf Nasal Screen MRSA (PCR) (Negative) COVID-19 Eval Order SARS-CoV-2 (PCR) (Negative) Blood Type Antibody Screen Coding Level of Care Code 97036 Subseq Hosp Care Lvl 3 Diagnoses Choledocholithiasis with acute cholecystitis with obstruction K80.43 Sepsis associated hypotension A41.9; I95.9 Supratherapeutic INR R79.1 MAYUR (acute kidney injury) N17.9 Hyponatremia E87.1 Chronic atrial fibrillation I48.20 History of CVA (cerebrovascular accident) Z86.73 CAD (coronary artery disease) I25.10 HLD (hyperlipidemia) E78.5 HTN (hypertension) I10
[2020-12-03] MEDS ORDERED: FUROSEMIDE 40 MG in SYRINGE 0 ML IV ONE (08:45)
[2020-12-03 09:00] LABS: iSTAT Creatinine 1.7 mg/dl (0.6-1.3); iSTAT Hemoglobin 17.3 g/dl (14.0-18.0); iSTAT Ionized Calcium 1.01 mmol/l (1.12-1.32); iSTAT Potassium 2.7 mmol/L (3.3-5.0)
--- NOTE | 2020-12-03 09:06 | Surgery Progress Note ---
Date of Service December 03, 2020 Assessment & Plan (1) Choledocholithiasis with acute cholecystitis with obstruction: Plan: Caused septic shock - now improved s/p ERCP/ stone removal. Continue antibiotics Will need lap kati at some point - timing to be determined by clinical course. Still with oxygen requirement, evidence of fluid overload, acute kidney injury, elevated troponin. Once medical issues stabilize and improve, will plan on gallbladder removal. Will continue to follow. Admission and Anticipated Discharge Date Admission Date: December 02, 2020 Subjective s/p ERCP/ stone removal/ sphincterotomy and stent placement. Overall better. No further pressor requirement. BP has stabilized. Now with oxygen requirement due to fluid overload No nausea/ vomiting. No further pain Physical Exam Constitutional: well developed; no acute distress Respiratory: no respiratory distress Auscultation: + diminished lung sounds and + crackles Cardiovascular: Rate/Rhythm: regular rate Gastrointestinal (Abdomen): normal bowel sounds, soft, nontender, no hepatosplenomegaly Neurologic: awake; no focal motor deficits Psychiatric: A+Ox3, euthymic affect Results & Data ([facility]) Vital Signs (Past 12 Hours) Vital Signs Temp Pulse Resp BP Pulse Ox Pulse Ox 12/03/20 06:30 74 26 H 111/64 91 12/03/20 06:00 75 22 108/63 90 12/03/20 05:30 77 21 117/70 91 12/03/20 05:00 71 20 105/66 92 12/03/20 04:30 73 22 105/69 91 12/03/20 04:00 67 18 95/69 L 93 12/03/20 03:45 36.4 C L 67 18 94/64 L 92 12/03/20 03:30 66 17 103/65 91 12/03/20 03:15 68 17 105/62 92 12/03/20 03:00 71 18 100/63 91 12/03/20 02:45 66 18 102/63 92 12/03/20 02:30 75 21 102/56 L 92 12/03/20 02:15 70 16 99/59 L 93 12/03/20 02:00 66 18 97/58 L 93 12/03/20 01:45 36.5 C 74 19 101/63 92 12/03/20 01:40 73 19 100/57 L 93 12/03/20 01:35 66 19 99/60 L 93 12/03/20 01:30 68 19 95/58 L 93 12/03/20 01:25 73 19 90/59 L 93 12/03/20 01:20 73 17 98/60 L 94 12/03/20 01:15 76 16 100/62 94 12/03/20 01:10 63 17 90/65 L 94 12/03/20 01:05 70 18 94/67 L 93 12/03/20 01:00 74 19 96/59 L 93 12/03/20 00:55 66 17 93/60 L 94 12/03/20 00:50 72 18 97/60 L 93 12/03/20 00:45 70 18 95/61 L 93 12/03/20 00:40 73 18 101/59 L 92 12/03/20 00:35 79 18 91/63 L 93 12/03/20 00:24 74 20 89/60 L 90 12/03/20 00:09 70 18 98/59 L 91 12/03/20 00:00 79 90 12/02/20 23:54 71 20 100/64 90 12/02/20 23:39 66 19 93/62 L 92 12/02/20 23:24 79 18 104/61 89 L 12/02/20 23:09 77 24 114/75 90 12/02/20 23:04 36.5 C 79 25 H 120/83 91 12/02/20 22:59 85 18 111/67 90 12/02/20 22:54 86 21 114/67 91 12/02/20 22:49 75 21 121/65 89 L 12/02/20 22:00 37.3 C 12/02/20 21:04 71 20 115/70 92 Laboratory Results 12/03/20 12/03/20 12/03/20 Range/Units 06:55 05:16 05:16 WBC 22.96 H (4.8-10.8) K/uL RBC 4.29 L (4.7-6.1) M/uL Hgb 13.0 L D (14.0-18.0) g/dL POC Hgb (14.0-18.0) g/dl Hct 38.1 L (42-52) % POC Hct (42-52) % MCV 88.8 (80-100) fL MCH 30.3 (25-34) pg MCHC 34.1 (32-36) g/dL RDW Std Deviation 49.5 H (36.4-46.3) fL RDW Coeff of Otilia 15.3 H (11.5-14.5) % Plt Count 160 (130-400) K/uL MPV 12.1 H (7.4-10.4) fL Immature Gran % (Auto) % Neut % (Auto) % Lymph % (Auto) % [place] % (Auto) % Eos % (Auto) % Baso % (Auto) % Neut # (Auto) (1.4-6.5) K/uL Lymph # (Auto) (1.2-3.4) K/uL [place] # (Auto) (0.11-0.59) K/uL Eos # (Auto) (0-0.5) K/uL Baso # (Auto) (0-0.2) K/uL Immature Gran # (Auto) (0.00-0.02) K/uL Toxic Vacuolation PT (9.0-12.0) Seconds INR (0.9-1.1) APTT (21.0-31.0) Seconds PTT Ratio POC Sodium (135-144) mmol/L Sodium 138 (136-145) mmol/L POC Potassium (3.3-5.0) mmol/L Potassium 3.2 L D (3.5-5.1) mmol/L POC Chloride (101-112) mmol/L Chloride 103 (98-107) mmol/L Carbon Dioxide 28 (21-32) mmol/L POC Total CO2 (24-31) mmol/L Anion Gap 7.0 (3-11) POC Anion Gap (16-25) mmol/L POC BUN (7-18) mg/dl BUN 27 H (7-18) mg/dl Creatinine 1.43 H D (0.6-1.4) mg/dl POC Creatinine (0.6-1.3) mg/dl Est Cr Clr Drug Dosing 45.0 ml/min Est GFR ( Amer) 50.7 ml/min Est GFR (Non-Af Amer) 43.7 ml/min BUN/Creatinine Ratio 18.7 (10-20) Glucose 94 (70-99) mg/dl POC Glucose (70-99) mg/dl POC Glucose (other) (70-99) mg/dl Lactate (0.4-2.0) mmol/L Calcium 8.1 L (8.5-10.1) mg/dl POC Ioniz Calcium Levi (1.12-1.32) mmol/l Magnesium 1.9 (1.8-2.4) mg/dl Total Bilirubin 4.6 H (0.2-1) mg/dl Direct Bilirubin 3.0 H (0-0.2) mg/dl AST 319 H (15-37) U/L ALT 344 H (12-78) U/L Alkaline Phosphatase 122 H (45-117) U/L Troponin I (0-0.045) ng/ml Total Protein 6.0 L (6.4-8.2) gm/dl Albumin 2.3 L (3.4-5.0) gm/dl Globulin 3.7 (2.5-4.0) gm/dl Albumin/Globulin Ratio 0.6 L (0.9-2) Lipase (73-393) U/L Procalcitonin (0-0.5) ng/ml Urine Color Urine Appearance (Clear) Urine pH (4.5-7.5) Ur Specific [place] (1.000-1.030) Urine Protein (Negative) Urine Glucose (UA) (Negative) Urine Ketones (Negative) Urine Blood (Negative) Urine Nitrite (Negative) Urine Bilirubin (Negative) Urine Urobilinogen (Negative) Ur Leukocyte Esterase (Negative) Urine WBC (Auto) (0-5) /hpf Urine RBC (Auto) (0-4) /hpf U Hyaline Cast (Auto) (0-5) /lpf U Epithel Cells (Auto) (0-5) /lpf Urine Bacteria (Auto) (Negative) Ur Renal Epithelial Cell Granular Casts (0) /lpf Nasal Screen MRSA (PCR) (Negative) COVID-19 Eval Order SARS-CoV-2 (PCR) (Negative) Blood Type Antibody Screen 12/02/20 12/02/20 12/02/20 Range/Units Unknown 23:40 22:27 WBC (4.8-10.8) K/uL RBC (4.7-6.1) M/uL Hgb (14.0-18.0) g/dL POC Hgb (14.0-18.0) g/dl Hct (42-52) % POC Hct (42-52) % MCV (80-100) fL MCH (25-34) pg MCHC (32-36) g/dL RDW Std Deviation (36.4-46.3) fL RDW Coeff of Otilia (11.5-14.5) % Plt Count (130-400) K/uL MPV (7.4-10.4) fL Immature Gran % (Auto) % Neut % (Auto) % Lymph % (Auto) % [place] % (Auto) % Eos % (Auto) % Baso % (Auto) % Neut # (Auto) (1.4-6.5) K/uL Lymph # (Auto) (1.2-3.4) K/uL [place] # (Auto) (0.11-0.59) K/uL Eos # (Auto) (0-0.5) K/uL Baso # (Auto) (0-0.2) K/uL Immature Gran # (Auto) (0.00-0.02) K/uL Toxic Vacuolation PT (9.0-12.0) Seconds INR (0.9-1.1) APTT (21.0-31.0) Seconds PTT Ratio POC Sodium (135-144) mmol/L Sodium (136-145) mmol/L POC Potassium (3.3-5.0) mmol/L Potassium (3.5-5.1) mmol/L POC Chloride (101-112) mmol/L Chloride (98-107) mmol/L Carbon Dioxide (21-32) mmol/L POC Total CO2 (24-31) mmol/L Anion Gap (3-11) POC Anion Gap (16-25) mmol/L POC BUN (7-18) mg/dl BUN (7-18) mg/dl Creatinine (0.6-1.4) mg/dl POC Creatinine (0.6-1.3) mg/dl Est Cr Clr Drug Dosing ml/min Est GFR ( Amer) ml/min Est GFR (Non-Af Amer) ml/min BUN/Creatinine Ratio (10-20) Glucose (70-99) mg/dl POC Glucose 108 H (70-99) mg/dl POC Glucose (other) (70-99) mg/dl Lactate (0.4-2.0) mmol/L Calcium (8.5-10.1) mg/dl POC Ioniz Calcium Levi (1.12-1.32) mmol/l Magnesium (1.8-2.4) mg/dl Total Bilirubin (0.2-1) mg/dl Direct Bilirubin (0-0.2) mg/dl AST (15-37) U/L ALT (12-78) U/L Alkaline Phosphatase (45-117) U/L Troponin I 0.069 H* (0-0.045) ng/ml Total Protein (6.4-8.2) gm/dl Albumin (3.4-5.0) gm/dl Globulin (2.5-4.0) gm/dl Albumin/Globulin Ratio (0.9-2) Lipase (73-393) U/L Procalcitonin (0-0.5) ng/ml Urine Color Dark Yellow Urine Appearance Cloudy A (Clear) Urine pH 5.5 (4.5-7.5) Ur Specific [place] 1.018 (1.000-1.030) Urine Protein 2+ H (Negative) Urine Glucose (UA) Negative (Negative) Urine Ketones Trace H (Negative) Urine Blood 2+ H (Negative) Urine Nitrite Positive A (Negative) Urine Bilirubin 3+ H (Negative) Urine Urobilinogen Negative (Negative) Ur Leukocyte Esterase Trace H (Negative) Urine WBC (Auto) 10-30 H (0-5) /hpf Urine RBC (Auto) 10-30 H (0-4) /hpf U Hyaline Cast (Auto) 10-30 H (0-5) /lpf U Epithel Cells (Auto) >30 H (0-5) /lpf Urine Bacteria (Auto) Negative (Negative) Ur Renal Epithelial Cell Not Reportable Granular Casts 5-10 H (0) /lpf Nasal Screen MRSA (PCR) (Negative) COVID-19 Eval Order SARS-CoV-2 (PCR) (Negative) Blood Type Antibody Screen 12/02/20 12/02/20 12/02/20 Range/Units 16:20 16:20 14:50 WBC (4.8-10.8) K/uL RBC (4.7-6.1) M/uL Hgb (14.0-18.0) g/dL POC Hgb (14.0-18.0) g/dl Hct (42-52) % POC Hct (42-52) % MCV (80-100) fL MCH (25-34) pg MCHC (32-36) g/dL RDW Std Deviation (36.4-46.3) fL RDW Coeff of Otilia (11.5-14.5) % Plt Count (130-400) K/uL MPV (7.4-10.4) fL Immature Gran % (Auto) % Neut % (Auto) % Lymph % (Auto) % [place] % (Auto) % Eos % (Auto) % Baso % (Auto) % Neut # (Auto) (1.4-6.5) K/uL Lymph # (Auto) (1.2-3.4) K/uL [place] # (Auto) (0.11-0.59) K/uL Eos # (Auto) (0-0.5) K/uL Baso # (Auto) (0-0.2) K/uL Immature Gran # (Auto) (0.00-0.02) K/uL Toxic Vacuolation PT 15.9 H (9.0-12.0) Seconds INR 1.6 H (0.9-1.1) APTT (21.0-31.0) Seconds PTT Ratio POC Sodium (135-144) mmol/L Sodium 136 (136-145) mmol/L POC Potassium (3.3-5.0) mmol/L Potassium 2.7 L (3.5-5.1) mmol/L POC Chloride (101-112) mmol/L Chloride 100 (98-107) mmol/L Carbon Dioxide 24 (21-32) mmol/L POC Total CO2 (24-31) mmol/L Anion Gap 11.0 (3-11) POC Anion Gap (16-25) mmol/L POC BUN (7-18) mg/dl BUN 25 H (7-18) mg/dl Creatinine 1.79 H D (0.6-1.4) mg/dl POC Creatinine (0.6-1.3) mg/dl Est Cr Clr Drug Dosing 36.0 ml/min Est GFR ( Amer) 38.6 ml/min Est GFR (Non-Af Amer) 33.3 ml/min BUN/Creatinine Ratio 13.9 (10-20) Glucose 101 H (70-99) mg/dl POC Glucose (70-99) mg/dl POC Glucose (other) (70-99) mg/dl Lactate (0.4-2.0) mmol/L Calcium 8.1 L (8.5-10.1) mg/dl POC Ioniz Calcium Levi (1.12-1.32) mmol/l Magnesium (1.8-2.4) mg/dl Total Bilirubin (0.2-1) mg/dl Direct Bilirubin (0-0.2) mg/dl AST (15-37) U/L ALT (12-78) U/L Alkaline Phosphatase (45-117) U/L Troponin I (0-0.045) ng/ml Total Protein (6.4-8.2) gm/dl Albumin (3.4-5.0) gm/dl Globulin (2.5-4.0) gm/dl Albumin/Globulin Ratio (0.9-2) Lipase (73-393) U/L Procalcitonin (0-0.5) ng/ml Urine Color Urine Appearance (Clear) Urine pH (4.5-7.5) Ur Specific [place] (1.000-1.030) Urine Protein (Negative) Urine Glucose (UA) (Negative) Urine Ketones (Negative) Urine Blood (Negative) Urine Nitrite (Negative) Urine Bilirubin (Negative) Urine Urobilinogen (Negative) Ur Leukocyte Esterase (Negative) Urine WBC (Auto) (0-5) /hpf Urine RBC (Auto) (0-4) /hpf U Hyaline Cast (Auto) (0-5) /lpf U Epithel Cells (Auto) (0-5) /lpf Urine Bacteria (Auto) (Negative) Ur Renal Epithelial Cell Granular Casts (0) /lpf Nasal Screen MRSA (PCR) Negative (Negative) COVID-19 Eval Order SARS-CoV-2 (PCR) (Negative) Blood Type Antibody Screen 12/02/20 12/02/20 12/02/20 Range/Units 12:15 11:50 09:36 WBC (4.8-10.8) K/uL RBC (4.7-6.1) M/uL Hgb (14.0-18.0) g/dL POC Hgb (14.0-18.0) g/dl Hct (42-52) % POC Hct (42-52) % MCV (80-100) fL MCH (25-34) pg MCHC (32-36) g/dL RDW Std Deviation (36.4-46.3) fL RDW Coeff of Otilia (11.5-14.5) % Plt Count (130-400) K/uL MPV (7.4-10.4) fL Immature Gran % (Auto) % Neut % (Auto) % Lymph % (Auto) % [place] % (Auto) % Eos % (Auto) % Baso % (Auto) % Neut # (Auto) (1.4-6.5) K/uL Lymph # (Auto) (1.2-3.4) K/uL [place] # (Auto) (0.11-0.59) K/uL Eos # (Auto) (0-0.5) K/uL Baso # (Auto) (0-0.2) K/uL Immature Gran # (Auto) (0.00-0.02) K/uL Toxic Vacuolation PT (9.0-12.0) Seconds INR (0.9-1.1) APTT (21.0-31.0) Seconds PTT Ratio POC Sodium (135-144) mmol/L Sodium (136-145) mmol/L POC Potassium (3.3-5.0) mmol/L Potassium (3.5-5.1) mmol/L POC Chloride (101-112) mmol/L Chloride (98-107) mmol/L Carbon Dioxide (21-32) mmol/L POC Total CO2 (24-31) mmol/L Anion Gap (3-11) POC Anion Gap (16-25) mmol/L POC BUN (7-18) mg/dl BUN (7-18) mg/dl Creatinine (0.6-1.4) mg/dl POC Creatinine (0.6-1.3) mg/dl Est Cr Clr Drug Dosing ml/min Est GFR ( Amer) ml/min Est GFR (Non-Af Amer) ml/min BUN/Creatinine Ratio (10-20) Glucose (70-99) mg/dl POC Glucose (70-99) mg/dl POC Glucose (other) (70-99) mg/dl Lactate 8.2 H* 8.9 H* (0.4-2.0) mmol/L Calcium (8.5-10.1) mg/dl POC Ioniz Calcium Levi (1.12-1.32) mmol/l Magnesium (1.8-2.4) mg/dl Total Bilirubin (0.2-1) mg/dl Direct Bilirubin (0-0.2) mg/dl AST (15-37) U/L ALT (12-78) U/L Alkaline Phosphatase (45-117) U/L Troponin I (0-0.045) ng/ml Total Protein (6.4-8.2) gm/dl Albumin (3.4-5.0) gm/dl Globulin (2.5-4.0) gm/dl Albumin/Globulin Ratio (0.9-2) Lipase (73-393) U/L Procalcitonin (0-0.5) ng/ml Urine Color Urine Appearance (Clear) Urine pH (4.5-7.5) Ur Specific [place] (1.000-1.030) Urine Protein (Negative) Urine Glucose (UA) (Negative) Urine Ketones (Negative) Urine Blood (Negative) Urine Nitrite (Negative) Urine Bilirubin (Negative) Urine Urobilinogen (Negative) Ur Leukocyte Esterase (Negative) Urine WBC (Auto) (0-5) /hpf Urine RBC (Auto) (0-4) /hpf U Hyaline Cast (Auto) (0-5) /lpf U Epithel Cells (Auto) (0-5) /lpf Urine Bacteria (Auto) (Negative) Ur Renal Epithelial Cell Granular Casts (0) /lpf Nasal Screen MRSA (PCR) (Negative) COVID-19 Eval Order SARS-CoV-2 (PCR) (Negative) Blood Type O Positive Antibody Screen NEGATIVE 12/02/20 12/02/20 12/02/20 Range/Units 09:30 09:30 09:19 WBC (4.8-10.8) K/uL RBC (4.7-6.1) M/uL Hgb (14.0-18.0) g/dL POC Hgb 17.3 (14.0-18.0) g/dl Hct (42-52) % POC Hct 51 (42-52) % MCV (80-100) fL MCH (25-34) pg MCHC (32-36) g/dL RDW Std Deviation (36.4-46.3) fL RDW Coeff of Otilia (11.5-14.5) % Plt Count (130-400) K/uL MPV (7.4-10.4) fL Immature Gran % (Auto) % Neut % (Auto) % Lymph % (Auto) % [place] % (Auto) % Eos % (Auto) % Baso % (Auto) % Neut # (Auto) (1.4-6.5) K/uL Lymph # (Auto) (1.2-3.4) K/uL [place] # (Auto) (0.11-0.59) K/uL Eos # (Auto) (0-0.5) K/uL Baso # (Auto) (0-0.2) K/uL Immature Gran # (Auto) (0.00-0.02) K/uL Toxic Vacuolation PT (9.0-12.0) Seconds INR (0.9-1.1) APTT (21.0-31.0) Seconds PTT Ratio POC Sodium 134 L (135-144) mmol/L Sodium (136-145) mmol/L POC Potassium 2.7 L (3.3-5.0) mmol/L Potassium (3.5-5.1) mmol/L POC Chloride 92 L (101-112) mmol/L Chloride (98-107) mmol/L Carbon Dioxide (21-32) mmol/L POC Total CO2 22 L (24-31) mmol/L Anion Gap (3-11) POC Anion Gap 24.0 (16-25) mmol/L POC BUN 22 H (7-18) mg/dl BUN (7-18) mg/dl Creatinine (0.6-1.4) mg/dl POC Creatinine 1.7 H (0.6-1.3) mg/dl Est Cr Clr Drug Dosing ml/min Est GFR ( Amer) ml/min Est GFR (Non-Af Amer) ml/min BUN/Creatinine Ratio (10-20) Glucose (70-99) mg/dl POC Glucose (70-99) mg/dl POC Glucose (other) 95 (70-99) mg/dl Lactate (0.4-2.0) mmol/L Calcium (8.5-10.1) mg/dl POC Ioniz Calcium Levi 1.01 L (1.12-1.32) mmol/l Magnesium (1.8-2.4) mg/dl Total Bilirubin (0.2-1) mg/dl Direct Bilirubin (0-0.2) mg/dl AST (15-37) U/L ALT (12-78) U/L Alkaline Phosphatase (45-117) U/L Troponin I (0-0.045) ng/ml Total Protein (6.4-8.2) gm/dl Albumin (3.4-5.0) gm/dl Globulin (2.5-4.0) gm/dl Albumin/Globulin Ratio (0.9-2) Lipase (73-393) U/L Procalcitonin (0-0.5) ng/ml Urine Color Urine Appearance (Clear) Urine pH (4.5-7.5) Ur Specific [place] (1.000-1.030) Urine Protein (Negative) Urine Glucose (UA) (Negative) Urine Ketones (Negative) Urine Blood (Negative) Urine Nitrite (Negative) Urine Bilirubin (Negative) Urine Urobilinogen (Negative) Ur Leukocyte Esterase (Negative) Urine WBC (Auto) (0-5) /hpf Urine RBC (Auto) (0-4) /hpf U Hyaline Cast (Auto) (0-5) /lpf U Epithel Cells (Auto) (0-5) /lpf Urine Bacteria (Auto) (Negative) Ur Renal Epithelial Cell Granular Casts (0) /lpf Nasal Screen MRSA (PCR) (Negative) COVID-19 Eval Order Covid19 at [facility] SARS-CoV-2 (PCR) NEGATIVE (Negative) Blood Type Antibody Screen 12/02/20 12/02/20 12/02/20 Range/Units 09:13 09:13 09:13 WBC 21.30 H (4.8-10.8) K/uL RBC 5.33 (4.7-6.1) M/uL Hgb 16.1 (14.0-18.0) g/dL POC Hgb (14.0-18.0) g/dl Hct 47.2 (42-52) % POC Hct (42-52) % MCV 88.6 (80-100) fL MCH 30.2 (25-34) pg MCHC 34.1 (32-36) g/dL RDW Std Deviation 47.7 H (36.4-46.3) fL RDW Coeff of Otilia 14.8 H (11.5-14.5) % Plt Count 181 (130-400) K/uL MPV 11.2 H (7.4-10.4) fL Immature Gran % (Auto) 1.5 % Neut % (Auto) 93.6 % Lymph % (Auto) 2.3 % [place] % (Auto) 2.6 % Eos % (Auto) 0.0 % Baso % (Auto) 0.0 % Neut # (Auto) 19.92 H (1.4-6.5) K/uL Lymph # (Auto) 0.49 L (1.2-3.4) K/uL [place] # (Auto) 0.55 (0.11-0.59) K/uL Eos # (Auto) 0.00 (0-0.5) K/uL Baso # (Auto) 0.01 (0-0.2) K/uL Immature Gran # (Auto) 0.33 H (0.00-0.02) K/uL Toxic Vacuolation 2+ PT 83.5 H (9.0-12.0) Seconds INR 9.9 H* (0.9-1.1) APTT 39.0 H (21.0-31.0) Seconds PTT Ratio 1.5 POC Sodium (135-144) mmol/L Sodium (136-145) mmol/L POC Potassium (3.3-5.0) mmol/L Potassium (3.5-5.1) mmol/L POC Chloride (101-112) mmol/L Chloride (98-107) mmol/L Carbon Dioxide (21-32) mmol/L POC Total CO2 (24-31) mmol/L Anion Gap (3-11) POC Anion Gap (16-25) mmol/L POC BUN (7-18) mg/dl BUN (7-18) mg/dl Creatinine (0.6-1.4) mg/dl POC Creatinine (0.6-1.3) mg/dl Est Cr Clr Drug Dosing ml/min Est GFR ( Amer) ml/min Est GFR (Non-Af Amer) ml/min BUN/Creatinine Ratio (10-20) Glucose (70-99) mg/dl POC Glucose (70-99) mg/dl POC Glucose (other) (70-99) mg/dl Lactate (0.4-2.0) mmol/L Calcium (8.5-10.1) mg/dl POC Ioniz Calcium Levi (1.12-1.32) mmol/l Magnesium (1.8-2.4) mg/dl Total Bilirubin (0.2-1) mg/dl Direct Bilirubin (0-0.2) mg/dl AST (15-37) U/L ALT (12-78) U/L Alkaline Phosphatase (45-117) U/L Troponin I (0-0.045) ng/ml Total Protein (6.4-8.2) gm/dl Albumin (3.4-5.0) gm/dl Globulin (2.5-4.0) gm/dl Albumin/Globulin Ratio (0.9-2) Lipase (73-393) U/L Procalcitonin 37.23 H (0-0.5) ng/ml Urine Color Urine Appearance (Clear) Urine pH (4.5-7.5) Ur Specific [place] (1.000-1.030) Urine Protein (Negative) Urine Glucose (UA) (Negative) Urine Ketones (Negative) Urine Blood (Negative) Urine Nitrite (Negative) Urine Bilirubin (Negative) Urine Urobilinogen (Negative) Ur Leukocyte Esterase (Negative) Urine WBC (Auto) (0-5) /hpf Urine RBC (Auto) (0-4) /hpf U Hyaline Cast (Auto) (0-5) /lpf U Epithel Cells (Auto) (0-5) /lpf Urine Bacteria (Auto) (Negative) Ur Renal Epithelial Cell Granular Casts (0) /lpf Nasal Screen MRSA (PCR) (Negative) COVID-19 Eval Order SARS-CoV-2 (PCR) (Negative) Blood Type Antibody Screen 12/02/20 Range/Units 09:13 WBC (4.8-10.8) K/uL RBC (4.7-6.1) M/uL Hgb (14.0-18.0) g/dL POC Hgb (14.0-18.0) g/dl Hct (42-52) % POC Hct (42-52) % MCV (80-100) fL MCH (25-34) pg MCHC (32-36) g/dL RDW Std Deviation (36.4-46.3) fL RDW Coeff of Otilia (11.5-14.5) % Plt Count (130-400) K/uL MPV (7.4-10.4) fL Immature Gran % (Auto) % Neut % (Auto) % Lymph % (Auto) % [place] % (Auto) % Eos % (Auto) % Baso % (Auto) % Neut # (Auto) (1.4-6.5) K/uL Lymph # (Auto) (1.2-3.4) K/uL [place] # (Auto) (0.11-0.59) K/uL Eos # (Auto) (0-0.5) K/uL Baso # (Auto) (0-0.2) K/uL Immature Gran # (Auto) (0.00-0.02) K/uL Toxic Vacuolation PT (9.0-12.0) Seconds INR (0.9-1.1) APTT (21.0-31.0) Seconds PTT Ratio POC Sodium (135-144) mmol/L Sodium 133 L (136-145) mmol/L POC Potassium (3.3-5.0) mmol/L Potassium 2.6 L (3.5-5.1) mmol/L POC Chloride (101-112) mmol/L Chloride 94 L (98-107) mmol/L Carbon Dioxide 24 (21-32) mmol/L POC Total CO2 (24-31) mmol/L Anion Gap 16.0 H (3-11) POC Anion Gap (16-25) mmol/L POC BUN (7-18) mg/dl BUN 22 H (7-18) mg/dl Creatinine 2.17 H (0.6-1.4) mg/dl POC Creatinine (0.6-1.3) mg/dl Est Cr Clr Drug Dosing 29.7 ml/min Est GFR ( Amer) 30.6 ml/min Est GFR (Non-Af Amer) 26.4 ml/min BUN/Creatinine Ratio 10.2 (10-20) Glucose 94 (70-99) mg/dl POC Glucose (70-99) mg/dl POC Glucose (other) (70-99) mg/dl Lactate (0.4-2.0) mmol/L Calcium 8.8 (8.5-10.1) mg/dl POC Ioniz Calcium Levi (1.12-1.32) mmol/l Magnesium 1.9 (1.8-2.4) mg/dl Total Bilirubin 7.1 H (0.2-1) mg/dl Direct Bilirubin (0-0.2) mg/dl AST 153 H (15-37) U/L ALT 222 H (12-78) U/L Alkaline Phosphatase 233 H (45-117) U/L Troponin I 0.129 H* (0-0.045) ng/ml Total Protein 7.1 (6.4-8.2) gm/dl Albumin 2.7 L (3.4-5.0) gm/dl Globulin 4.4 H (2.5-4.0) gm/dl Albumin/Globulin Ratio 0.6 L (0.9-2) Lipase 1052 H (73-393) U/L Procalcitonin (0-0.5) ng/ml Urine Color Urine Appearance (Clear) Urine pH (4.5-7.5) Ur Specific [place] (1.000-1.030) Urine Protein (Negative) Urine Glucose (UA) (Negative) Urine Ketones (Negative) Urine Blood (Negative) Urine Nitrite (Negative) Urine Bilirubin (Negative) Urine Urobilinogen (Negative) Ur Leukocyte Esterase (Negative) Urine WBC (Auto) (0-5) /hpf Urine RBC (Auto) (0-4) /hpf U Hyaline Cast (Auto) (0-5) /lpf U Epithel Cells (Auto) (0-5) /lpf Urine Bacteria (Auto) (Negative) Ur Renal Epithelial Cell Granular Casts (0) /lpf Nasal Screen MRSA (PCR) (Negative) COVID-19 Eval Order SARS-CoV-2 (PCR) (Negative) Blood Type Antibody Screen
[2020-12-03] MEDS: PIPERACILLIN/TAZOBACTAM 4.5 GM in DEXTROSE 5% 100 ML IV SCH ×2 (09:53→16:39)
[2020-12-03] MEDS: POTASSIUM CHLORIDE CRTAB 20 MEQ TABCR PO STA ×2 (09:53→12:30)
[2020-12-03] MEDS: POTASSIUM CHLORIDE CRTAB 20 MEQ TABCR PO ONE ×2 (09:57→12:33)
[2020-12-03] MEDS ORDERED: POTASSIUM CHLORIDE CRTAB 20 MEQ TABCR PO ONE (12:00)
[2020-12-03] MEDS ORDERED: POTASSIUM CHLORIDE CRTAB 20 MEQ TABCR PO SCH (12:30)
[2020-12-03] MEDS: HEPARIN SOD 5,000 UNIT/0.5 ML VIAL SQ SCH ×2 (13:58→20:42)
--- NOTE | 2020-12-03 14:42 | Hospitalist Progress Note ---
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 Is found to have cholangitis/cholecystitis and supratherapeutic INR and hypokalemia in the ED, general surgery and GI consulted, underwent ERCP on the day of admission, was in septic shock, got managed in ICU for 1 day. Transfer out of ICU 12/03 to PCU and is being managed for the following: #. Sepsis with shock requiring pressors - resolved 12/03 #. Cholangitis #. Acute hypoxic respiratory failure #. Increased blood lactic acid leveltrend until normal Admitting WBC 21.3K, lactate 8.9, RR 22, BP 78/54 mmHg, temperature 36.3C; needed 3 L normal saline bolus and then pressors. Admitting CXR: Blunting of the right costophrenic angle is suggestive of atelectasis versus trace effusion. Admitting CTAP: Obstructive 4 mm calculus within the distal aspect of the common bile duct A/W CBD dilation and cholecystitis and cholangitis. Bilateral nonobstructive nephrolithiasis. 12/02 blood culture: Preliminary growth of GNB, follow final results. 12/02 Common bile aspirate culture: GNB preliminary, follow final results. 12/02 urine culture: Negative. 12/02 ERCP: Ascending cholangitis, choledocholithiasis -complete removal by biliary sphincterotomy and balloon extraction. One plastic biliary stent was placed into the common bile duct. GI on board: 12/02 ERCP, Cholecystectomy this admission per surgery once clinically stable and prior to discharge. Repeat ERCP in 6 weeks to remove tremayne nt. General surgery on board: Cholecystectomy once medically stable. Continue with IV Zosyn 12/02, Tailor ATB once C/S out. Ac. Resp. F. most likely secondary to acute illness superimposed by aggressive fluid resuscitation, use diuresis as needed, received 40 mg of Lasix in the ICU today. I/O postive balance by 5.6L Repeat CXR tomorrow morning if patient still requiring O2. Use supplemental oxygen, titrate as tolerated. #. HTN Hypotensive at presentation, currently BP meds on hold, assess tomorrow and resume home meds. #. Chronic A. fib #. Supratherapeutic INR #. 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 We will resume home warfarin 12/03, hold 2 days prior to cholecystectomy plan. #. Hypokalemia K+ 2.6 at presentation, received multiple replacement, still low K, received 80 mEq of K+ today, follow-up with daytime BMP. Monitor daily, replace as appropriate #. MAYUR BUN and creatinine at presentation 22 and 2.17, baseline creatinine around 1 Patient received IV fluid, creatinine trending down, 1.43 today Monitor daily. #. Elevated troponin 0.129 at presentation, EKG NSR, troponin trended down, likely secondary to sepsis and demand ischemia. No chest pain. #. CAD (coronary artery disease) -Last echo was in 2007, Left ventricular wall thickness, LV normal systolic function, left atrial enlargement is mild, trace mitral and mild tricuspid insufficiency, suggestion of mild elevation of pulmonary pressure -Holding metoprolol, felodipine, lisinopril, hctz Full code DVT prophylaxis: On warfarin Disposition: Expect patient to stay for few days and depends on surgical plan. Admission and Anticipated Discharge Date Admission Date: December 02, 2020 Subjective Patient lying in bed, requiring 5 L nasal cannula oxygen, not on home oxygen, NAD, no acute events overnight. Per RN, patient was off of pressors by midnight and has been maintaining good blood pressure since then. Patient denies belly pain/fever/chills/increased shortness of breath/other review of symptoms. Patient is eating okay but no bowel movement/gas after ERCP. Physical Exam Physical Exam: GENERAL: Alert and oriented x3. NAD, on 5L NC. HEENT: No pallor, no icterus. Pupils equal, round and reactive to light. Oral mucosa moist. NECK: No JVD, no neck masses. HEART: S1 and S2 heard. Regular rate and rhythm. No murmur, no gallop. RESPIRATORY SYSTEM: Normal AP diameter. No accessory muscle use. No wheezing, b/b crackles. ABDOMEN: Soft, bowel sounds present, nontender, no distention. CENTRAL NERVOUS SYSTEM: Alert and oriented x3. No facial droop. Speech is clear. Obeys simple commands. Moves extremities. EXTREMITIES: No edema, no erythema seen. Results & Data Results & Data ([facility]) Vital Signs (Past 12 Hours) Vital Signs Temp Pulse Pulse Resp BP BP Pulse Ox 12/03/20 14:24 37.1 C 81 20 124/70 92 12/03/20 13:35 75 23 114/65 91 12/03/20 12:35 78 23 113/65 91 12/03/20 12:00 37.9 C H 12/03/20 11:35 90 24 114/60 88 L 12/03/20 10:35 84 27 H 113/64 93 12/03/20 09:30 74 23 111/64 90 12/03/20 09:00 83 28 H 120/66 89 L 12/03/20 08:30 80 26 H 114/60 90 12/03/20 08:00 79 27 H 112/64 90 12/03/20 07:30 75 22 109/55 L 90 12/03/20 07:00 73 28 H 120/60 89 L 12/03/20 06:30 74 26 H 111/64 91 12/03/20 06:00 75 22 108/63 90 12/03/20 05:30 77 21 117/70 91 12/03/20 05:00 71 20 105/66 92 12/03/20 04:30 73 22 105/69 91 12/03/20 04:00 67 18 95/69 L 93 12/03/20 03:45 36.4 C L 67 18 94/64 L 92 12/03/20 03:30 66 17 103/65 91 12/03/20 03:15 68 17 105/62 92 12/03/20 03:00 71 18 100/63 91 12/03/20 02:45 66 18 102/63 92
--- NOTE | 2020-12-03 15:28 | Gastroenterology Progress Note ---
Date of Service December 03, 2020 Assessment & Plan (1) Choledocholithiasis with acute cholecystitis with obstruction: Plan: s/p ERCP with biliary sphincterotomy and stent placement Doing better today, with no abdominal pain Continue current therapy and supportive care (2) Cholangitis: Admission and Anticipated Discharge Date Admission Date: December 02, 2020 Subjective Feeling better today. Was able to tolerate clear liquid diet. Still requiring O2, and he states he has never had O2 at home before. Denies fevers, chills, nausea, vomiting, jaundice, pruritus, hematemesis, melena, or hematochezia. Physical Exam Constitutional: WD/WN, vitals as above Respiratory: normal respiratory effort; no respiratory distress and no labored breathing Auscultation: + diminished lung sounds Cardiovascular: RRR, no murmur, no edema Gastrointestinal (Abdomen): normal bowel sounds, soft, nontender, no hepatosplenomegaly Psychiatric: A+Ox3, euthymic affect Results & Data Results & Data ([facility]) Vital Signs (Past 12 Hours) Vital Signs Temp Pulse Pulse Resp BP BP Pulse Ox 12/03/20 14:24 37.1 C 81 20 124/70 92 12/03/20 13:35 75 23 114/65 91 12/03/20 12:35 78 23 113/65 91 12/03/20 12:00 37.9 C H 12/03/20 11:35 90 24 114/60 88 L 12/03/20 10:35 84 27 H 113/64 93 12/03/20 09:30 74 23 111/64 90 12/03/20 09:00 83 28 H 120/66 89 L 12/03/20 08:30 80 26 H 114/60 90 12/03/20 08:00 79 27 H 112/64 90 12/03/20 07:30 75 22 109/55 L 90 12/03/20 07:00 73 28 H 120/60 89 L 12/03/20 06:30 74 26 H 111/64 91 12/03/20 06:00 75 22 108/63 90 12/03/20 05:30 77 21 117/70 91 12/03/20 05:00 71 20 105/66 92 12/03/20 04:30 73 22 105/69 91 12/03/20 04:00 67 18 95/69 L 93 12/03/20 03:45 36.4 C L 67 18 94/64 L 92 12/03/20 03:30 66 17 103/65 91 PG Care Time/CCT Total # of Minutes Spent Total Time Spent with Patient: Total time spent is greater than 50% in coordination of care (as documented) at patient's floor/unit and/or counseling patient: Coding Level of Care Code 97526 Subseq Hosp Care Lvl 3 Diagnoses Choledocholithiasis with acute cholecystitis with obstruction K80.43 Cholangitis K83.09
[2020-12-03] MEDS ORDERED: WARFARIN SOD 2.5 MG TAB PO SCH (16:00)
[2020-12-03] MEDS: ATORVASTATIN 10 MG TAB PO SCH (20:42)
[2020-12-04] MEDS: PIPERACILLIN/TAZOBACTAM 4.5 GM in DEXTROSE 5% 100 ML IV SCH ×2 (01:01→07:47)
[2020-12-04] MEDS: HEPARIN SOD 5,000 UNIT/0.5 ML VIAL SQ SCH (06:41)
--- NOTE | 2020-12-04 06:44 | Electrocardiogram Report ---
Test Reason : Blood Pressure : / mmHG Vent. Rate : 093 BPM Atrial Rate : 468 BPM P-R Int : 000 ms QRS Dur : 096 ms QT Int : 380 ms P-R-T Axes : 000 -41 -01 degrees QTc Int : 472 ms Atrial fibrillation Left axis deviation Abnormal ECG When compared with ECG of 17-DEC-2007 15:35, No significant change Confirmed by Eyad Dawkins ([id number]) on 12/04/2020 6:43:56 AM Referred By: REFERRED SELF Confirmed By:Eyad Dawkins
[2020-12-04 08:01] LABS: Hematocrit (blood only) 39.4 % (42-52); Hemoglobin 13.3 g/dL (14.0-18.0); Mean Corpuscular Hemoglobin 29.8 pg (25-34); Mean Corpuscular Hgb Conc 33.8 g/dL (32-36); Mean Corpuscular Volume 88.3 fL (80-100); Mean Platelet Volume 12.2 fL (7.4-10.4); Platelet Count 165 K/uL (130-400); RDW Coefficient of Variation 15.5 % (11.5-14.5); RDW Standard Deviation 50.1 fL (36.4-46.3); Red Blood Count 4.46 M/uL (4.7-6.1); White Blood Count 14.27 K/uL (4.8-10.8)
[2020-12-04 08:28] LABS: BUN Creatinine Ratio 23.5 (10-20); Calcium 8.1 mg/dl (8.5-10.1); Creatinine Clr Calc Pharmacy 58.8 ml/min; Est GFR (African American) 70.4 ml/min; Est GFR (Non-African American) 60.7 ml/min; Potassium 3.2 mmol/L (3.5-5.1)
[2020-12-04 08:35] LABS: Albumin Globulin Ratio 0.5 (0.9-2); Bilirubin,Total 2.7 mg/dl (0.2-1); Globulin 3.7 gm/dl (2.5-4.0); Total Protein 5.7 gm/dl (6.4-8.2)
[2020-12-04] MEDS ORDERED: ALBUT/IPRATROP 3MG/0.5MG NEB 3 ML VIAL NEB PRN (08:42)
[2020-12-04] MEDS ORDERED: POTASSIUM CHLORIDE CRTAB 20 MEQ TABCR PO STA ×2 (08:44→17:34)
[2020-12-04] MEDS ORDERED: WARFARIN SOD 5 MG TAB PO SCH (09:00)
[2020-12-04] MEDS ORDERED: FUROSEMIDE 40 MG in SYRINGE 0 ML IV ONE (09:00)
[2020-12-04] MEDS: THIAMINE HCL 100 MG TAB PO SCH (09:19)
--- NOTE | 2020-12-04 09:31 | XRay Report ---
SINGLE VIEW CHEST CLINICAL HISTORY: Wheezing. Hypoxia. FINDINGS: An AP, portable, upright chest radiograph is compared to study dated 12/02/2020. Heart is en larged noting atherosclerotic calcification of the thoracic aorta. There is mild pulmonary vascular c ongestion. There are small pleural effusions with bibasilar consolidation. No pneumothorax is seen. T he skeletal structures are osteopenic. The bony thorax is grossly intact. Arthritic change is noted i n the right shoulder. IMPRESSION: 1. Cardiomegaly with pulmonary vascular congestion. 2. Small pleural effusions with bibasilar consolidation. ACT 112: Negative or not required by law. Electronically signed by: Richard Smiley M.D. 12/04/2020 9:30 AM
--- NOTE | 2020-12-04 11:15 | Surgery Progress Note ---
Date of Service December 04, 2020 Assessment & Plan (1) Choledocholithiasis with acute cholecystitis with obstruction: Plan: Caused septic shock - now improved s/p ERCP/ stone removal. Continue antibiotics Will need lap kati at some point - timing to be determined by clinical course. Still with oxygen requirement - will await improvement. Acute kidney injury is back to baseline. Once medical issues stabilize and improve, will plan on gallbladder removal. Consider lovenox therapeutic dose instead of coumadin to facilitate surgery when ready. Will continue to follow. Admission and Anticipated Discharge Date Admission Date: December 02, 2020 Subjective No complaints of pain. Still tired, sleeping. No nausea. Had clears yesterday. Still on 5L oxygen. Physical Exam Constitutional: well developed; no acute distress Respiratory: no respiratory distress Auscultation: + diminished lung sounds and + crackles Cardiovascular: Rate/Rhythm: regular rate Gastrointestinal (Abdomen): normal bowel sounds, soft, nontender, no hepatosplenomegaly Neurologic: awake; no focal motor deficits Psychiatric: A+Ox3, euthymic affect Results & Data ([facility]) Vital Signs (Past 12 Hours) Vital Signs Temp Pulse Resp BP Pulse Ox 12/04/20 08:00 37.0 C 88 18 118/64 96 12/04/20 04:00 36.8 C 77 16 117/73 92 Laboratory Results Abnormal lab results 12/03/20 12/03/20 12/04/20 Range/Units 16:07 17:58 07:39 WBC 14.27 H (4.8-10.8) K/uL RBC 4.46 L (4.7-6.1) M/uL Hgb 13.3 L (14.0-18.0) g/dL Hct 39.4 L (42-52) % RDW Std Deviation 50.1 H (36.4-46.3) fL RDW Coeff of Otilia 15.5 H (11.5-14.5) % MPV 12.2 H (7.4-10.4) fL Potassium (3.5-5.1) mmol/L BUN (7-18) mg/dl BUN/Creatinine Ratio (10-20) Lactate 2.8 H* 3.0 H* (0.4-2.0) mmol/L Calcium (8.5-10.1) mg/dl Total Bilirubin (0.2-1) mg/dl AST (15-37) U/L ALT (12-78) U/L Alkaline Phosphatase (45-117) U/L Total Protein (6.4-8.2) gm/dl Albumin (3.4-5.0) gm/dl Albumin/Globulin Ratio (0.9-2) // Range/Units 07:39 WBC (4.8-10.8) K/uL RBC (4.7-6.1) M/uL Hgb (14.0-18.0) g/dL Hct (42-52) % RDW Std Deviation (36.4-46.3) fL RDW Coeff of Otilia (11.5-14.5) % MPV (7.4-10.4) fL Potassium 3.2 L (3.5-5.1) mmol/L BUN 26 H (7-18) mg/dl BUN/Creatinine Ratio 23.5 H (10-20) Lactate (0.4-2.0) mmol/L Calcium 8.1 L (8.5-10.1) mg/dl Total Bilirubin 2.7 H (0.2-1) mg/dl AST 111 H (15-37) U/L ALT 212 H (12-78) U/L Alkaline Phosphatase 124 H (45-117) U/L Total Protein 5.7 L (6.4-8.2) gm/dl Albumin 2.0 L (3.4-5.0) gm/dl Albumin/Globulin Ratio 0.5 L (0.9-2)
[2020-12-04 12:41] LABS: INR 1.4 (0.9-1.1); Prothrombin Time 14.2 Seconds (9.0-12.0)
--- NOTE | 2020-12-04 12:54 | Hospitalist Progress Note ---
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 Is found to have cholangitis/cholecystitis and supratherapeutic INR and hypokalemia in the ED, general surgery and GI consulted, underwent ERCP on the day of admission, was in septic shock, got managed in ICU for 1 day. Transfer out of ICU 12/03 to PCU and is being managed for the following: #. Sepsis with shock requiring pressors - resolved 12/03 #. Cholangitis #. Acute hypoxic respiratory failure #. Increased blood lactic acid leveltrend until normal Admitting WBC 21.3K, lactate 8.9, RR 22, BP 78/54 mmHg, temperature 36.3C; needed 3 L normal saline bolus and then pressors. Admitting CXR: Blunting of the right costophrenic angle is suggestive of atelectasis versus trace effusion. Admitting CTAP: Obstructive 4 mm calculus within the distal aspect of the common bile duct A/W CBD dilation and cholecystitis and cholangitis. Bilateral nonobstructive nephrolithiasis. 12/02 blood culture: Growing E. coli 12/02 Common bile aspirate culture: Growing E. coli, final result pending 12/02 urine culture: Negative. 12/02 ERCP: Ascending cholangitis, choledocholithiasis -complete removal by biliary sphincterotomy and balloon extraction. One plastic biliary stent was p laced into the common bile duct. GI on board: 12/02 ERCP, Cholecystectomy this admission per surgery once clinically stable and prior to discharge. Repeat ERCP in 6 weeks to remove tremayne nt. General surgery on board: Cholecystectomy once medically stable. Continue with IV Zosyn 12/02, p.o. in 2 to 3 days. Ac. Resp. F. most likely secondary to acute illness superimposed by aggressive fluid resuscitation, use diuresis as needed, received 40 mg of Lasix today. I/O postive balance by 5.2L 12/04 CXR with vascular congestion, proBNP elevated at 2616, get cardiology for f bhupendra recommendations. #. HTN Hypotensive at presentation, currently BP meds on hold, assess tomorrow and resume home meds. #. Chronic A. fib #. Supratherapeutic INR #. 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 Got home dose warfarin 12/03 and 12/04, plan to change to therapeutic Lovenox in anticipation for cholecystectomy while inpatient. Hold lovenox prior to Sx. #. Hypokalemia K+ 2.6 at presentation, received multiple replacement, still low K, received 80 mEq of K+ today. Monitor daily, replace as appropriate. #. MAYUR BUN and creatinine at presentation 22 and 2.17, baseline creatinine around 1 Patient received IV fluid, creatinine trending down, 1.09 today Monitor daily. #. Elevated troponin 0.129 at presentation, EKG NSR, troponin trended down, likely secondary to sepsis and demand ischemia. No chest pain. #. CAD (coronary artery disease) -Last echo was in 2007, Left ventricular wall thickness, LV normal systolic function, left atrial enlargement is mild, trace mitral and mild tricuspid insufficiency, suggestion of mild elevation of pulmonary pressure -Holding metoprolol, felodipine, lisinopril, hctz Full code DVT prophylaxis: On therapeutic lovenox Disposition: Expect patient to stay for few days and depends on surgical plan. Admission and Anticipated Discharge Date Admission Date: December 02, 2020 Subjective Patient lying in bed, on 5 L nasal cannula oxygen, NAD, no issues overnight. Patient reports feeling better. Patient denies any belly pain/increased shortness of breath/any other review of symptoms. Patient eating okay. Has not moved bowel since ERCP but moving gas. Physical Exam Physical Exam: GENERAL: Alert and oriented x3. NAD, on 5L NC. HEENT: No pallor, no icterus. Pupils equal, round and reactive to light. Oral mucosa moist. NECK: No JVD, no neck masses. HEART: S1 and S2 heard. Regular rate and rhythm. No murmur, no gallop. RESPIRATORY SYSTEM: Normal AP diameter. No accessory muscle use. No wheezing, b/b crackles. Decreased right lower lobe breath sounds. ABDOMEN: Soft, bowel sounds present, nontender, no distention. CENTRAL NERVOUS SYSTEM: Alert and oriented x3. No facial droop. Speech is clear. Obeys simple commands. Moves extremities. EXTREMITIES: No edema, no erythema seen. Results & Data Results & Data ([facility]) Vital Signs (Past 12 Hours) Vital Signs Temp Pulse Pulse Resp BP BP Pulse Ox 12/04/20 11:50 36.7 C 78 20 123/82 94 12/04/20 11:45 85 18 96 12/04/20 08:00 37.0 C 88 18 118/64 96 12/04/20 04:00 36.8 C 77 16 117/73 92
[2020-12-04] MEDS ORDERED: POTASSIUM CHLORIDE CRTAB 20 MEQ TABCR PO ONE (13:00)
[2020-12-04] MEDS ORDERED: Heparin IV Adult Wt-Based Standard *NO* Bolus Protocol IV SCH (15:02)
--- NOTE | 2020-12-04 15:17 | Cardiology Consultation ---
Date of Consultation December 04, 2020 Assessment & Plan (1) Volume overload: (2) Hypokalemia: (3) Supratherapeutic INR: (4) Sepsis associated hypotension: (5) Chronic atrial fibrillation: (1) Volume overload: Per review of his intake and output put summary, the patient received 7 L of intake on 12/03/2020 and his fluid balance was documented as being +5.3 L. Volume included fresh frozen plasma, antibiotics, and fluid resuscitation due to concerns of sepsis with hypotension. He has since received a dose of furosemide 40 mg intravenously as administered at 9 AM this morning, 12/04, and 2.6 L of urine output already noted. Of note, the use of human prothrombin complex concentrate (Kcentra) for emergent reversal of Coumadin, albeit expensive, is often times preferred over administration of fresh frozen plasma in an effort to avoid volume overload. He is comfortable. I anticipate he will need additional IV diuretic, but I think it is most prudent to hold this, pending reassessment of his renal function and potassium levels and reduce them as necessary tomorrow. We do not have a recent echocardiogram, especially given planned upcoming surgery, I think be prudent to proceed with a transthoracic echocardiogram for further assessment given the fact that his last study was performed in 2007. (2) Hypokalemia: Repeat chemistry panel tentatively plan for 1600. We will replace potassium as necessary. (3) Supratherapeutic INR: Initial INR was supratherapeutic at 9.9, and is trended down to 1.6 and most recently 1.4 having received 10 mg of IV vitamin K, 2 units of fresh frozen plasma. Patient with permanent atrial fibrillation, past stroke, at this time would recommend bridge therapy. My personal preference would be to proceed with unfractioned heparin infusion which can be discontinued in advance of his planned cholecystectomy. I favor unfractioned heparin over full anticoagulation dose Lovenox, as this medication can be discontinued and rapidly reversed if there is a change in the patient's clinical condition, such as concerned with regards to bleeding or need for emergent procedure. (4)Sepsis associated hypotension: BP improved. Continue antibiotics. Will likely need ongoing diuretic therapy to prevent recurrent/worsening volume overload. (5) Chronic atrial fibrillation: Patient is on chronic metoprolol tartrate 25 mg twice daily. This has been held due to hypotension on presentation. With blood pressure having normalized, will resume metoprolol at a lower dose, 12.5 mg twice daily, to avoid tachycardia. Will titrate as necessary. As noted, proceed with unfractioned heparin infusion for stroke prophylaxis. History of Present Illness Attending Physician: Brooke Chiu MD History of Present Illness Atif Dunbar is an 85-year-old male seen in cardiology consultation per the request of Dr. Chiu, for cardiology management of volume overload and chronic atrial fibrillation. Patient has a history of chronic (permanent) atrial fibrillation. Per review of his chart, this was first diagnosed in 2007 when he presented with new onset atrial fibrillation shortly after having had the surgery. He was seen in cardiology consultation during that hospital stay. Echocardiogram revealed preserved biventricular systolic function. He has been treated with Coumadin and metoprolol in the meantime. His history is otherwise notable for a past stroke, hypertension, and dyslipidemia. I see no definite studies to conclude that he has an known documented history of coronary heart disease. The patient presented via the emergency room 2 days ago on 12/02/2020 with 4 days of preceding progressive abdominal discomfort. He was diagnosed with acute ascending cholangitis. His INR on presentation was 9.9, with a white blood cell count of 21.3. He received 10 mg of IV vitamin K along with 2 units of fresh frozen plasma and underwent ERCP with removal of a common bile duct stone, biliary sphincterotomy, and biliary stent was placed in the common bile duct. He has been seen by general surgery, and cholecystectomy is tentatively planned during this hospital stay after he is optimized from a sepsis and volume overload standpoint. During my interview with the patient in room 238-2, he was comfortable, without acute distress. Oxygen saturations had been recorded to be 95% on 5 L nasal cannula. Denies chest discomfort. Other than his recent abdominal discomfort that prompted his emergency room visit, he describes that he has been feeling well with no change in activity tolerance, no symptoms to suggest angina. Allergies Allergy/AdvReac Type Severity Reaction Status Date / Time No Known Allergies Allergy Unknown Verified 12/02/20 09:11 Home Medications Medication Instructions Recorded Confirmed Type atorvastatin 10 mg tablet (Lipitor) 0 mg PO HS 12/02/20 12/02/20 History felodipine 5 mg tablet,extended 5 mg PO QAM 12/02/20 12/02/20 History release 24 hr hydrochlorothiazide 12.5 mg capsule 12.5 mg PO QAM 12/02/20 12/02/20 History lisinopril 20 mg tablet (Prinivil) 20 mg PO BID 12/02/20 12/02/20 History metoprolol tartrate 50 mg tablet 25 mg PO BID 12/02/20 12/02/20 History (Lopressor) multivitamin (Daily Multi-Vitamin) 1 tab PO QAM 12/02/20 12/02/20 History omega 1-lgq-ckt-fish oil 1,200 mg 1 cap PO BID 12/02/20 12/02/20 History (144 mg-216 mg) capsule (Fish Oil) warfarin 5 mg tablet (Jantoven) See Rx Instructions .ROUTE .COMPLEX 12/02/20 12/02/20 History Patient History Medical History (Updated 12/04/20 @ 15:15 by Weston Atkins DO) CAD (coronary artery disease) Chronic atrial fibrillation History of CVA (cerebrovascular accident) HLD (hyperlipidemia) HTN (hypertension) Hx of pulmonary embolus Surgical History History of knee replacement Social History Smoking Status: Former smoker Tobacco Type: Cigarettes Hx Alcohol Use: No Hx Substance Use: No Preferred Language: Mexican Communication Ability: Effective Beliefs That Will Affect Care: None marital status: Unknown Current Living Situation: Alone Other Information That Helps Us Care for You: No Feels Safe at Home: Yes Safety Concerns: Feels Safe At This Time Assistive Devices: Oxygen - Continuous Review of Systems Review of Systems: All systems reviewed & are unremarkable except as noted in HPI & below Physical Exam Physical Exam: Temp Pulse Resp BP Pulse Ox 36.7 C 78 20 123/82 95 12/04/20 11:50 12/04/20 11:50 12/04/20 11:50 12/04/20 11:50 12/04/20 12:55 Constitutional: WD/WN, vitals as above Respiratory: Auscultation: + diminished lung sounds (Decreased breath bilaterally at the bases); no rhonchi, no wheezes and no pleural rub Cardiovascular: Rate/Rhythm: + irregularly irregular Heart Sounds: no murmur Extremities: no edema Gastrointestinal (Abdomen): normal bowel sounds, soft, nontender, no hepatosp lenomegaly Neurologic: PERRL, EOMI, accommodation nl, no face palsy, no dysarthria Genitourinary: Saucedo catheter in place draining clear yellow urine Results & Data ([facility]) Vital Signs (Past 12 Hours) Vital Signs Temp Pulse Pulse Resp BP BP Pulse Ox 12/04/20 12:55 95 12/04/20 11:50 36.7 C 78 20 123/82 94 12/04/20 11:45 85 18 96 12/04/20 08:00 37.0 C 88 18 118/64 96 12/04/20 04:00 36.8 C 77 16 117/73 92 Laboratory Results Cardiac Enzymes 12/04/20 Range/Units 07:39 AST 111 H (15-37) U/L Coagulation 12/04/20 Range/Units 12:02 PT 14.2 H (9.0-12.0) Seconds CBC 12/04/20 Range/Units 07:39 WBC 14.27 H (4.8-10.8) K/uL RBC 4.46 L (4.7-6.1) M/uL Hgb 13.3 L (14.0-18.0) g/dL Hct 39.4 L (42-52) % Plt Count 165 (130-400) K/uL Comprehensive Metabolic Panel 12/04/20 Range/Units 07:39 Sodium 139 (136-145) mmol/L Potassium 3.2 L (3.5-5.1) mmol/L Chloride 104 (98-107) mmol/L Carbon Dioxide 29 (21-32) mmol/L BUN 26 H (7-18) mg/dl Creatinine 1.09 (0.6-1.4) mg/dl Glucose 92 (70-99) mg/dl Calcium 8.1 L (8.5-10.1) mg/dl AST 111 H (15-37) U/L ALT 212 H (12-78) U/L Alkaline Phosphatase 124 H (45-117) U/L Total Protein 5.7 L (6.4-8.2) gm/dl Albumin 2.0 L (3.4-5.0) gm/dl Intake and Output 12/04/20 12/04/20 12/04/20 06:59 14:59 22:59 Intake Total 320 / 2380 120 / 120 Output Total 600 / 2600 Balance -280 / -220 120 / 120 Intake: IV 120 / 1330 120 / 120 Piperacillin/Tazobactam 4.5 gm 120 / 360 120 / 120 In Dextrose 5% 100 ml @ 30 mls/ hr IV Q8H [facility] Rx#:[id number] Oral 200 / 1050 Output: Urine Amount (Catheter) 600 / 2600 Saucedo/Indwelling 600 / 2600 Other: Weight 97.7 kg Weight Measurement Method Built in [facility]
[2020-12-04] MEDS: AMPICILLIN/SULBACTAM SOD 3,000 MG in 0.9 % SODIUM CHLORIDE 100 ML IV SCH ×2 (15:25→21:04)
[2020-12-04] MEDS: HEPARIN SODIUM/DEXTROSE 25,000 UNITS/500 ML BAG IV SCH (15:27)
[2020-12-04 16:43] LABS: BUN Creatinine Ratio 20.3 (10-20); Creatinine Clr Calc Pharmacy 55.2 ml/min; Est GFR (African American) 65.3 ml/min; Est GFR (Non-African American) 56.3 ml/min; Potassium 3.5 mmol/L (3.5-5.1)
[2020-12-04] MEDS ORDERED: ENOXAPARIN 100 MG/1ML SYR SQ SCH (20:00)
[2020-12-04] MEDS: METOPROLOL TARTRATE 25 MG TAB PO SCH (21:04)
[2020-12-04] MEDS: ATORVASTATIN 10 MG TAB PO SCH (21:05)
[2020-12-04 22:12] LABS: Partial Thromboplastin Ratio 2.1
[2020-12-04 22:16] LABS: Partial Thromboplastin Time 56.5 Seconds (21.0-31.0)
[2020-12-05] MEDS: AMPICILLIN/SULBACTAM SOD 3,000 MG in 0.9 % SODIUM CHLORIDE 100 ML IV SCH ×4 (03:57→21:15)
[2020-12-05 07:18] LABS: Hematocrit (blood only) 40.7 % (42-52); Hemoglobin 13.6 g/dL (14.0-18.0); Mean Corpuscular Hemoglobin 29.6 pg (25-34); Mean Corpuscular Hgb Conc 33.4 g/dL (32-36); Mean Corpuscular Volume 88.7 fL (80-100); Mean Platelet Volume 11.7 fL (7.4-10.4); Platelet Count 163 K/uL (130-400); RDW Coefficient of Variation 15.6 % (11.5-14.5); RDW Standard Deviation 50.5 fL (36.4-46.3); Red Blood Count 4.59 M/uL (4.7-6.1); White Blood Count 10.72 K/uL (4.8-10.8)
[2020-12-05 07:40] LABS: INR 2.8 (0.9-1.1); Partial Thromboplastin Ratio 2.8; Prothrombin Time 26.5 Seconds (9.0-12.0)
[2020-12-05 07:41] LABS: BUN Creatinine Ratio 20.3 (10-20); Calcium 8.4 mg/dl (8.5-10.1); Creatinine Clr Calc Pharmacy 64.1 ml/min; Est GFR (African American) 78.1 ml/min; Est GFR (Non-African American) 67.4 ml/min; Potassium 3.9 mmol/L (3.5-5.1)
[2020-12-05 07:48] LABS: Albumin Globulin Ratio 0.5 (0.9-2); Bilirubin,Total 2.2 mg/dl (0.2-1); Globulin 4.1 gm/dl (2.5-4.0); Total Protein 6.1 gm/dl (6.4-8.2)
[2020-12-05 07:50] LABS: Partial Thromboplastin Time 73.1 Seconds (21.0-31.0)
[2020-12-05] MEDS: HEPARIN SODIUM/DEXTROSE 25,000 UNITS/500 ML BAG IV SCH (07:52)
[2020-12-05] MEDS ORDERED: ENOXAPARIN 100 MG/1ML SYR SQ SCH (08:00)
[2020-12-05] MEDS: THIAMINE HCL 100 MG TAB PO SCH (08:05)
[2020-12-05] MEDS: METOPROLOL TARTRATE 25 MG TAB PO SCH ×2 (08:05→20:31)
[2020-12-05] MEDS ORDERED: FUROSEMIDE 40 MG in SYRINGE 0 ML IV ONE (10:00)
--- NOTE | 2020-12-05 10:03 | Cardiology Progress Note ---
Date of Service December 05, 2020 Assessment & Plan (1) Volume overload: (2) Chronic atrial fibrillation: (3) Choledocholithiasis with acute cholecystitis with obstruction: (4) Hypokalemia: Plan: Mild volume overload on exam. Recommend 40 mg of IV Lasix, 20 mEq of oral potassium today. Monitor fluid balance, daily weight, GFR, and electrolytes. INR is therapeutic today. Recommend discontinuation of IV heparin.Repeat INR in a.m. Hold warfarin today. Continue metoprolol 12.5 mg twice daily (reduced dose, 25 mg twice daily in the outpatient setting). Lisinopril will remain on hold due to intermittent borderline hypotension/sepsis. Admission and Anticipated Discharge Date Admission Date: December 02, 2020 Subjective Patient seen and examined at the bedside. Denies CP or SOB. No abdominal discomfort, nausea, or vomiting. No palpitations, lightheadedness, dizziness, or near syncope. Telemetry reveals rate controlled atrial fibrillation. Fluid balance -1281. Review of Systems Review of Systems: All systems reviewed & are unremarkable except as noted in Subjective Physical Exam Constitutional: well developed and well nourished; no acute distress Respiratory: normal respiratory effort; no respiratory distress and no labored breathing Auscultation: breath sounds present, no crackles, no rales and no rhonchi Cardiovascular: Rate/Rhythm: + irregularly irregular Heart Sounds: normal S1 and normal S2; no murmur and no cardiac rub Gastrointestinal (Abdomen): Inspection/Auscultation: abdomen normal to inspection and normal bowel sounds; abdomen not distended Percussion/Palpation: abdomen soft; abdomen nontender, no guarding and abdomen not rigid Neurologic: CN's II-XI intact bilaterally and moves all extremities; no focal motor deficits Results & Data ([facility]) Vital Signs (Past 12 Hours) Vital Signs Temp Pulse Pulse Resp BP BP Pulse Ox 12/05/20 07:23 36.5 C 81 18 134/80 94 12/05/20 04:20 37.1 C 75 18 137/72 93 12/05/20 00:05 37.2 C 75 18 136/85 93
[2020-12-05] MEDS ORDERED: POTASSIUM CHLORIDE CRTAB 20 MEQ TABCR PO STA (10:11)
--- NOTE | 2020-12-05 14:04 | Hospitalist Progress Note ---
Date of Service December 05, 2020 Assessment & Plan (1) Septic shock: (2) Supratherapeutic INR: (3) Cholangitis: (4) Choledocholithiasis with acute cholecystitis with obstruction: Plan: 85 yo M with PMhx of chronic afib on warfarin, CAD, HTN, HLD, CVA, and pulmonary embolism who presents 12/02 with acute illness which started approximately 1 week ago [employer] in the form of belly discomfort associated with weakness and lethargy/decreased appetite/weight loss. Is found to have cholangitis/cholecystitis and supratherapeutic INR and hypokalemia in the ED, general surgery and GI consulted, underwent ERCP on the day of admission, was in septic shock, got managed in ICU for 1 day. Transfer out of ICU 12/03 to PCU and is being managed for the following: #. Sepsis with shock requiring pressors - resolved 12/03 #. Cholangitis #. Acute hypoxic respiratory failure #. Increased blood lactic acid leveltrend until normal Admitting WBC 21.3K, lactate 8.9, RR 22, BP 78/54 mmHg, temperature 36.3C; needed 3 L normal saline bolus and then pressors. Admitting CXR: Blunting of the right costophrenic angle is suggestive of atelectasis versus trace effusion. Admitting CTAP: Obstructive 4 mm calculus within the distal aspect of the common bile duct A/W CBD dilation and cholecystitis and cholangitis. Bilateral nonobstructive nephrolithiasis. 12/02 blood culture: Growing E. coli 12/02 Common bile aspirate culture: Growing E. coli, final result pending 12/02 urine culture: Negative. 12/02 ERCP: Ascending cholangitis, choledocholithiasis -complete removal by biliary sphincterotomy and balloon extraction. One plastic biliary stent was p laced into the common bile duct. 12/05 echo: EF 50 to 55%, severe dilatation of left atrium, patent foramen ovale, systolic pulmonary pressure 50 mmHg. GI on board: 12/02 ERCP, Cholecystectomy this admission per surgery once clinically stable and prior to discharge. Repeat ERCP in 6 weeks to remove tremayne nt. General surgery on board: Cholecystectomy once medically stable. Continue with antibiotic Zosyn 12/02---> 12/04 Unasyn, p.o. in 2 to 3 days or at the time of discharge. Ac. Resp. F. most likely secondary to acute illness superimposed by aggressive fluid resuscitation, use diuresis as needed. I/O postive balance by 3.9L 12/04 CXR with vascular congestion, proBNP elevated at 2616. Cardiology on board: Diuresing with potassium supplementation. #. HTN Hypotensive at presentation, currently BP meds on hold, assess on a daily basis to resume home meds. #. Chronic A. fib #. Supratherapeutic INR #. History of CVA/PE Patient on long-term Coumadin at home INR of 9.9 at presentation likely secondary to decreased food intake in the last week [employer] At home takes 5 mg on Sun/Tu/Thurs, and 2.5 mg on all other days, last dose taken was 1 day [employer] Patient received 10 mg IV vitamin K and 2 FFP prior to ERCP on the day of admission INR 1.6 today 12/03. Got home dose warfarin 12/03 and 12/04, changed to heparin drip 12/04 in anticipation for cholecystectomy while inpatient 12/06 INR therapeutic range, hold heparin, monitor INR daily, resume heparin drip once subtherapeutic. #. Hypokalemia K+ 2.6 at presentation, received multiple replacement, still low K, received 80 mEq of K+ today. Monitor daily, replace as appropriate. #. MAYUR BUN and creatinine at presentation 22 and 2.17, baseline creatinine around 1 Resolved #. Elevated troponin 0.129 at presentation, EKG NSR, troponin trended down, likely secondary to sepsis and demand ischemia. No chest pain. #. CAD (coronary artery disease) -Last echo was in 2007, Left ventricular wall thickness, LV normal systolic function, left atrial enlargement is mild, trace mitral and mild tricuspid insufficiency, suggestion of mild elevation of pulmonary pressure -Holding metoprolol, felodipine, lisinopril, hctz 12/05 echo: EF 50 to 55%, severe dilation of left atrium, systolic pulmonary pressure 50 mmHg. Patent foramen ovale. Full code DVT prophylaxis: On therapeutic lovenox Disposition: Expect patient to stay for few days and depends on surgical plan. Admission and Anticipated Discharge Date Admission Date: December 02, 2020 Subjective Patient examined at bedside, lying in bed on 2 L nasal cannula oxygen talking over the phone, NAD, no issues overnight. Patient reports eating well. He is moving gas but has not moved bowel. Advance his diet as tolerated. Denies fever/chills/increased shortness of breath/other review of symptoms. Physical Exam Physical Exam: GENERAL: Alert and oriented x3. NAD, on 2L NC. HEENT: No pallor, no icterus. Pupils equal, round and reactive to light. Oral mucosa moist. NECK: No JVD, no neck masses. HEART: S1 and S2 heard. Regular rate and rhythm. No murmur, no gallop. RESPIRATORY SYSTEM: Normal AP diameter. No accessory muscle use. No wheezing, b/b crackles. Decreased right lower lobe breath sounds. ABDOMEN: Soft, bowel sounds present, nontender, no distention. CENTRAL NERVOUS SYSTEM: Alert and oriented x3. No facial droop. Speech is clear. Obeys simple commands. Moves extremities. EXTREMITIES: No edema, no erythema seen. Results & Data Results & Data ([facility]) Vital Signs (Past 12 Hours) Vital Signs Temp Pulse Pulse Resp BP BP Pulse Ox 12/05/20 10:32 36.5 C 63 17 123/75 94 12/05/20 07:23 36.5 C 81 18 134/80 94 12/05/20 04:20 37.1 C 75 18 137/72 93
[2020-12-05 14:48] LABS: Partial Thromboplastin Ratio 1.4; Partial Thromboplastin Time 35.6 Seconds (21.0-31.0)
--- NOTE | 2020-12-05 16:08 | Surgery Progress Note ---
Date of Service December 05, 2020 Assessment & Plan (1) Choledocholithiasis with acute cholecystitis with obstruction: Plan: POD # 3 s/p ERCP with biliary sphincterotomy and common bile duct stent placement Caused septic shock - now improved s/p ERCP/ stone removal. Leukocytosis resolved. BP stable Acute kidney injury is back to baseline. T. bili and LFTS still elevated but trending down Dr. Lafleur discussed with patient and then daughter (via telephone) indication for holding off on cholecystectomy this admission given his age, medical comorbidities, recent general anesthesia for ERCP, and 1 week history of pain prior to admission likely causing significant inflammation that would make laparoscopic approach more difficult. He also has a CBD stent present which decreases likelihood of another episode of biliary obstruction compared to risk without a stent present. Given all of these factors as well as recent Coumadin (had dose 12/03 and 12/04), would recommend holding off on cholecystectomy for 6-8 weeks to allow inflammation to go down and allow for outpatient follow-up and medical clearance. Would recommend low fat diet on discharge Outpatient follow-up with Dr. Lafleur in about 2 weeks after discharge recommended to discuss further management for his gallbladder. Dr. lafleur has seen and examined patient, agrees with above. Admission and Anticipated Discharge Date Admission Date: December 02, 2020 Subjective feeling good no abdominal pain no nausea or vomiting tolerating full liquids Results & Data ([facility]) Vital Signs (Past 12 Hours) Vital Signs Temp Pulse Pulse Resp BP BP Pulse Ox 12/05/20 10:32 36.5 C 63 17 123/75 94 12/05/20 07:23 36.5 C 81 18 134/80 94 12/05/20 04:20 37.1 C 75 18 137/72 93 Laboratory Results 12/05/20 12/05/20 12/05/20 Range/Units 14:09 06:59 06:59 WBC 10.72 (4.8-10.8) K/uL RBC 4.59 L (4.7-6.1) M/uL Hgb 13.6 L (14.0-18.0) g/dL Hct 40.7 L (42-52) % MCV 88.7 (80-100) fL MCH 29.6 (25-34) pg MCHC 33.4 (32-36) g/dL RDW Std Deviation 50.5 H (36.4-46.3) fL RDW Coeff of Otilia 15.6 H (11.5-14.5) % Plt Count 163 (130-400) K/uL MPV 11.7 H (7.4-10.4) fL PT (9.0-12.0) Seconds INR (0.9-1.1) APTT 35.6 H (21.0-31.0) Seconds PTT Ratio 1.4 Sodium 139 (136-145) mmol/L Potassium 3.9 (3.5-5.1) mmol/L Chloride 103 (98-107) mmol/L Carbon Dioxide 30 (21-32) mmol/L Anion Gap 6.0 (3-11) BUN 20 H (7-18) mg/dl Creatinine 1.00 (0.6-1.4) mg/dl Est Cr Clr Drug Dosing 64.1 ml/min Est GFR ( Amer) 78.1 ml/min Est GFR (Non-Af Amer) 67.4 ml/min BUN/Creatinine Ratio 20.3 H (10-20) Glucose 94 (70-99) mg/dl Calcium 8.4 L (8.5-10.1) mg/dl Total Bilirubin 2.2 H (0.2-1) mg/dl AST 62 H (15-37) U/L ALT 156 H (12-78) U/L Alkaline Phosphatase 158 H (45-117) U/L Total Protein 6.1 L (6.4-8.2) gm/dl Albumin 2.0 L (3.4-5.0) gm/dl Globulin 4.1 H (2.5-4.0) gm/dl Albumin/Globulin Ratio 0.5 L (0.9-2) 12/05/20 12/04/20 12/04/20 Range/Units 06:59 21:36 16:07 WBC (4.8-10.8) K/uL RBC (4.7-6.1) M/uL Hgb (14.0-18.0) g/dL Hct (42-52) % MCV (80-100) fL MCH (25-34) pg MCHC (32-36) g/dL RDW Std Deviation (36.4-46.3) fL RDW Coeff of Otilia (11.5-14.5) % Plt Count (130-400) K/uL MPV (7.4-10.4) fL PT 26.5 H (9.0-12.0) Seconds INR 2.8 H (0.9-1.1) APTT 73.1 H* 56.5 H* (21.0-31.0) Seconds PTT Ratio 2.8 2.1 Sodium 140 (136-145) mmol/L Potassium 3.5 (3.5-5.1) mmol/L Chloride 102 (98-107) mmol/L Carbon Dioxide 32 (21-32) mmol/L Anion Gap 5.0 (3-11) BUN 24 H (7-18) mg/dl Creatinine 1.16 (0.6-1.4) mg/dl Est Cr Clr Drug Dosing 55.2 ml/min Est GFR ( Amer) 65.3 ml/min Est GFR (Non-Af Amer) 56.3 ml/min BUN/Creatinine Ratio 20.3 H (10-20) Glucose 106 H (70-99) mg/dl Calcium 8.0 L (8.5-10.1) mg/dl Total Bilirubin (0.2-1) mg/dl AST (15-37) U/L ALT (12-78) U/L Alkaline Phosphatase (45-117) U/L Total Protein (6.4-8.2) gm/dl Albumin (3.4-5.0) gm/dl Globulin (2.5-4.0) gm/dl Albumin/Globulin Ratio (0.9-2)
[2020-12-05] MEDS: ATORVASTATIN 10 MG TAB PO SCH (20:32)
[2020-12-06] MEDS: AMPICILLIN/SULBACTAM SOD 3,000 MG in 0.9 % SODIUM CHLORIDE 100 ML IV SCH ×4 (03:56→22:15)
[2020-12-06 07:38] LABS: BUN Creatinine Ratio 21.7 (10-20); Calcium 8.1 mg/dl (8.5-10.1); Creatinine Clr Calc Pharmacy 66.8 ml/min; Est GFR (African American) 89.5 ml/min; Est GFR (Non-African American) 77.2 ml/min; Magnesium 1.7 mg/dl (1.8-2.4); Potassium 3.9 mmol/L (3.5-5.1)
[2020-12-06 07:53] LABS: Partial Thromboplastin Ratio 1.5; Partial Thromboplastin Time 39.9 Seconds (21.0-31.0); Prothrombin Time 27.6 Seconds (9.0-12.0)
[2020-12-06] MEDS: METOPROLOL TARTRATE 25 MG TAB PO SCH ×2 (08:02→20:03)
[2020-12-06] MEDS: THIAMINE HCL 100 MG TAB PO SCH (08:03)
[2020-12-06 08:46] LABS: Bilirubin Direct 1.2 mg/dl (0-0.2); Bilirubin,Total 1.7 mg/dl (0.2-1); Total Protein 5.9 gm/dl (6.4-8.2)
[2020-12-06] MEDS ORDERED: MAGNESIUM SULFATE / D5W 1 GM/100 ML BAG IV ONE (09:00)
[2020-12-06] MEDS ORDERED: POTASSIUM CHLORIDE CRTAB 20 MEQ TABCR PO STA (10:17)
--- NOTE | 2020-12-06 10:17 | Cardiology Progress Note ---
Date of Service December 06, 2020 Assessment & Plan (1) Volume overload: (2) Chronic atrial fibrillation: (3) Choledocholithiasis with acute cholecystitis with obstruction: (4) Hypokalemia: Plan: Restart HCTZ 12.5mg daily and lisinopril 20mg BID. INR 2.6 today. Restart warfarin. Continue metoprolol to 25 mg twice daily (outpatient dose). Outpatient cardiology follow up in 4 weeks. Admission and Anticipated Discharge Date Admission Date: December 02, 2020 Subjective Patient seen exam at the bedside. Denies abdominal discomfort, nausea, or vomiting. Tolerating a.m. meal. Fluid balance -2.1 L. Renal function remained stable.Weight is down 7 pounds. Review of Systems Review of Systems: All systems reviewed & are unremarkable except as noted in Subjective Physical Exam Constitutional: well developed and well nourished; no acute distress Respiratory: normal respiratory effort; no respiratory distress and no labored breathing Auscultation: breath sounds present, no crackles, no rales and no rhonchi Cardiovascular: Rate/Rhythm: + irregularly irregular Heart Sounds: normal S1 and normal S2; no murmur and no cardiac rub Gastrointestinal (Abdomen): Inspection/Auscultation: abdomen normal to inspection and normal bowel sounds; abdomen not distended Percussion/Palpation: abdomen soft; abdomen nontender, no guarding and abdomen not rigid Neurologic: CN's II-XI intact bilaterally and moves all extremities; no focal motor deficits Results & Data ([facility]) Vital Signs (Past 12 Hours) Vital Signs Temp Pulse Pulse Pulse Resp BP BP 12/06/20 08:00 37.0 C 84 16 143/66 H 12/06/20 04:03 12/06/20 04:02 12/06/20 03:04 36.5 C 70 19 137/89 12/05/20 22:42 36.8 C 71 17 133/77 12/05/20 22:20 71 Pulse Ox 12/06/20 08:00 97 12/06/20 04:03 93 12/06/20 04:02 89 L 12/06/20 03:04 90 12/05/20 22:42 90 12/05/20 22:20
[2020-12-06] MEDS ORDERED: FUROSEMIDE 20 MG in SYRINGE 0 ML IV ONE (10:30)
--- NOTE | 2020-12-06 10:51 | Surgery Progress Note ---
Date of Service December 06, 2020 Assessment & Plan (1) Choledocholithiasis with acute cholecystitis with obstruction: Plan: POD # 4 s/p ERCP with biliary sphincterotomy and common bile duct stent placement Caused septic shock - now improved s/p ERCP/ stone removal. Leukocytosis resolved. BP stable Acute kidney injury is back to baseline. T. bili and LFTS trending down Dr. Lafleur discussed with patient and then daughter (via telephone) indication for holding off on cholecystectomy this admission given his age, medical comorbidities, recent general anesthesia for ERCP, and 1 week history of pain prior to admission likely causing significant inflammation that would make laparoscopic approach more difficult. He also has a CBD stent present which decreases likelihood of another episode of biliary obstruction compared to risk without a stent present. Given all of these factors as well as recent Coumadin (had dose 12/03 and 12/04), would recommend holding off on cholecystectomy for 6-8 weeks to allow inflammation to go down and allow for outpatient follow-up and medical clearance. Would recommend low fat diet on discharge Outpatient follow-up with Dr. Lafleur in about 2 weeks after discharge recommended to discuss further management for his gallbladder. Dr. lafleur has seen and examined patient, agrees with above. Admission and Anticipated Discharge Date Admission Date: December 02, 2020 Subjective feeling good no abdominal pain no nausea or vomiting tolerating oral intake Physical Exam Constitutional: WD/WN, vitals as above no acute distress and not ill appearing Respiratory: normal respiratory effort; no respiratory distress, no labored breathing and no retractions Gastrointestinal (Abdomen): Inspection/Auscultation: abdomen normal to ins pection; abdomen not distended Percussion/Palpation: abdomen soft; abdomen nontender, no guarding and abdomen not rigid Skin: no rashes, warm and dry Psychiatric: Orientation: alert and oriented x 3 Results & Data ([facility]) Vital Signs (Past 12 Hours) Vital Signs Temp Pulse Pulse Resp BP BP Pulse Ox 12/06/20 08:00 37.0 C 84 16 143/66 H 97 12/06/20 04:03 93 12/06/20 04:02 89 L 12/06/20 03:04 36.5 C 70 19 137/89 90 Laboratory Results 12/06/20 12/06/20 12/06/20 Range/Units 06:40 06:40 06:40 PT 27.6 H (9.0-12.0) Seconds INR 3.0 H (0.9-1.1) APTT 39.9 H (21.0-31.0) Seconds PTT Ratio 1.5 Sodium 140 (136-145) mmol/L Potassium 3.9 (3.5-5.1) mmol/L Chloride 105 (98-107) mmol/L Carbon Dioxide 30 (21-32) mmol/L Anion Gap 5.0 (3-11) BUN 19 H (7-18) mg/dl Creatinine 0.88 (0.6-1.4) mg/dl Est Cr Clr Drug Dosing 66.8 ml/min Est GFR ( Amer) 89.5 ml/min Est GFR (Non-Af Amer) 77.2 ml/min BUN/Creatinine Ratio 21.7 H (10-20) Glucose 93 (70-99) mg/dl Calcium 8.1 L (8.5-10.1) mg/dl Magnesium 1.7 L (1.8-2.4) mg/dl Total Bilirubin 1.7 H (0.2-1) mg/dl Direct Bilirubin 1.2 H (0-0.2) mg/dl AST 47 H (15-37) U/L ALT 114 H (12-78) U/L Alkaline Phosphatase 155 H (45-117) U/L Total Protein 5.9 L (6.4-8.2) gm/dl Albumin 2.0 L (3.4-5.0) gm/dl 12/05/20 Range/Units 14:09 PT (9.0-12.0) Seconds INR (0.9-1.1) APTT 35.6 H (21.0-31.0) Seconds PTT Ratio 1.4 Sodium (136-145) mmol/L Potassium (3.5-5.1) mmol/L Chloride (98-107) mmol/L Carbon Dioxide (21-32) mmol/L Anion Gap (3-11) BUN (7-18) mg/dl Creatinine (0.6-1.4) mg/dl Est Cr Clr Drug Dosing ml/min Est GFR ( Amer) ml/min Est GFR (Non-Af Amer) ml/min BUN/Creatinine Ratio (10-20) Glucose (70-99) mg/dl Calcium (8.5-10.1) mg/dl Magnesium (1.8-2.4) mg/dl Total Bilirubin (0.2-1) mg/dl Direct Bilirubin (0-0.2) mg/dl AST (15-37) U/L ALT (12-78) U/L Alkaline Phosphatase (45-117) U/L Total Protein (6.4-8.2) gm/dl Albumin (3.4-5.0) gm/dl
--- NOTE | 2020-12-06 14:53 | Hospitalist Progress Note ---
Date of Service December 06, 2020 Assessment & Plan (1) Septic shock: (2) Supratherapeutic INR: (3) Cholangitis: (4) Choledocholithiasis with acute cholecystitis with obstruction: Plan: 85 yo M with PMhx of chronic afib on warfarin, CAD, HTN, HLD, CVA, and pulmonary embolism who presents 12/02 with acute illness which started approximately 1 week ago [employer] in the form of belly discomfort associated with weakness and lethargy/decreased appetite/weight loss. Is found to have cholangitis/cholecystitis and supratherapeutic INR and hypokalemia in the ED, general surgery and GI consulted, underwent ERCP on the day of admission, was in septic shock, got managed in ICU for 1 day. Transfer out of ICU 12/03 to PCU and is being managed for the following: #. Sepsis with shock requiring pressors - resolved 12/03 #. Cholangitis #. Acute hypoxic respiratory failure #. Increased blood lactic acid leveltrend until normal Admitting WBC 21.3K, lactate 8.9, RR 22, BP 78/54 mmHg, temperature 36.3C; needed 3 L normal saline bolus and then pressors. Admitting CXR: Blunting of the right costophrenic angle is suggestive of atelectasis versus trace effusion. Admitting CTAP: Obstructive 4 mm calculus within the distal aspect of the common bile duct A/W CBD dilation and cholecystitis and cholangitis. Bilateral nonobstructive nephrolithiasis. 12/02 blood culture: Growing E. coli 12/02 Common bile aspirate culture: Growing E. coli, final result pending 12/02 urine culture: Negative. 12/02 ERCP: Ascending cholangitis, choledocholithiasis -complete removal by biliary sphincterotomy and balloon extraction. One plastic biliary stent was p laced into the common bile duct. 12/05 echo: EF 50 to 55%, severe dilatation of left atrium, patent foramen ovale, systolic pulmonary pressure 50 mmHg. GI on board: 12/02 ERCP, Cholecystectomy this admission per surgery once clinically stable and prior to discharge. Repeat ERCP in 6 weeks to remove tremayne nt. General surgery on board: Postponed cholecystectomy, outpatient follow-up with Dr. Lafleur in about 2 weeks after discharge to discuss further management of his gallbladder. Continue with antibiotic Zosyn 12/02---> 12/04 Unasyn, changed to Augmentin for total of 14 days of antibiotic course prior to discharge, likely tomorrow. Ac. Resp. F. most likely secondary to acute illness superimposed by aggressive fluid resuscitation, use diuresis as needed. I/O postive balance by +1.8 L 12/04 CXR with vascular congestion, proBNP elevated at 2616. Cardiology on board: Diuresing with potassium supplementation. #. HTN Hypotensive at presentation, resumed lisinopril, getting as needed basis, continue to hold HCTZ. Resume HCTZ upon discharge. #. Chronic A. fib #. Supratherapeutic INR #. History of CVA/PE Patient on long-term Coumadin at home INR of 9.9 at presentation likely secondary to decreased food intake in the last week [employer] At home takes 5 mg on Sun/Tu/Th, and 2.5 mg on all other days, last dose taken was 1 day [employer] Patient received 10 mg IV vitamin K and 2 FFP prior to ERCP on the day of admission INR 1.6 today 12/03. Got home dose warfarin 12/03 and 12/04, changed to heparin drip 12/04 in anticipation for cholecystectomy while inpatient --> will DC heparin since cholecystectomy is now postponed. 12/05 and 12/06 INR therapeutic range, monitor INR daily, can resume warfarin tomorrow. Expect INR to stabilize once patient starts eating towards his baseline. #. Hypokalemia K+ 2.6 at presentation, received multiple replacement, still low K, received 80 mEq of K+ today. Monitor daily, replace as appropriate. #. MAYUR BUN and creatinine at presentation 22 and 2.17, baseline creatinine around 1 Resolved #. Elevated troponin 0.129 at presentation, EKG NSR, troponin trended down, likely secondary to sepsis and demand ischemia. No chest pain. #. CAD (coronary artery disease) -Last echo was in 2007, Left ventricular wall thickness, LV normal systolic function, left atrial enlargement is mild, trace mitral and mild tricuspid insufficiency, suggestion of mild elevation of pulmonary pressure -Holding metoprolol, felodipine, lisinopril, hctz 12/05 echo: EF 50 to 55%, severe dilation of left atrium, systolic pulmonary pressure 50 mmHg. Patent foramen ovale. Full code DVT prophylaxis: On therapeutic lovenox Disposition: Income past denied the patient, patient refusing SNF, wrapper caser to talk with daughter regarding placement, can likely be discharged tomorrow once patient is on room air or with two-step test as appropriate. 12/06 DtrKrishna Ruelas [[phone]] was updated over the phone regarding plan of care about her father, answered her questions in detail, patient voiced understanding and was agreeable to the plan of care. Patient requested to talk with wrapper caser regarding placement going forward. Admission and Anticipated Discharge Date Admission Date: December 02, 2020 Subjective Patient was sitting up in bed, eating his breakfast, NAD, tolerating nasal cannula oxygen. Patient denies any chest pain/belly pain/fever/chills/any other review of symptoms. Patient has not moved bowels since after ERCP but is moving gas. Physical Exam Physical Exam: GENERAL: Alert and oriented x3. NAD, on 2L NC. HEENT: No pallor, no icterus. Pupils equal, round and reactive to light. Oral mucosa moist. NECK: No JVD, no neck masses. HEART: S1 and S2 heard. Regular rate and rhythm. No murmur, no gallop. RESPIRATORY SYSTEM: Normal AP diameter. No accessory muscle use. No wheezing, b/b crackles. Decreased right lower lobe breath sounds. ABDOMEN: Soft, bowel sounds present, nontender, no distention. CENTRAL NERVOUS SYSTEM: Alert and oriented x3. No facial droop. Speech is clear. Obeys simple commands. Moves extremities. EXTREMITIES: No edema, no erythema seen. Results & Data Results & Data ([facility]) Vital Signs (Past 12 Hours) Vital Signs Temp Pulse Pulse Resp BP BP Pulse Ox 12/06/20 11:11 95 12/06/20 11:00 36.5 C 74 18 143/72 H 96 12/06/20 08:00 37.0 C 84 16 143/66 H 97 12/06/20 04:03 93 12/06/20 04:02 89 L 12/06/20 03:04 36.5 C 70 19 137/89 90
[2020-12-06] MEDS: ATORVASTATIN 10 MG TAB PO SCH (20:03)
[2020-12-06] MEDS: lisinopril 20 MG TAB PO SCH (20:03)
[2020-12-07] MEDS: AMPICILLIN/SULBACTAM SOD 3,000 MG in 0.9 % SODIUM CHLORIDE 100 ML IV SCH ×4 (04:37→21:43)
[2020-12-07 08:39] LABS: Calcium 8.3 mg/dl (8.5-10.1); Creatinine Clr Calc Pharmacy 70.9 ml/min; Est GFR (African American) 91.7 ml/min; Est GFR (Non-African American) 79.1 ml/min; Magnesium 1.7 mg/dl (1.8-2.4); Potassium 3.5 mmol/L (3.5-5.1)
[2020-12-07 08:49] LABS: INR 2.6 (0.9-1.1); Partial Thromboplastin Ratio 1.5; Partial Thromboplastin Time 40.3 Seconds (21.0-31.0); Prothrombin Time 24.8 Seconds (9.0-12.0)
[2020-12-07] MEDS: lisinopril 20 MG TAB PO SCH ×2 (08:50→20:36)
[2020-12-07] MEDS: THIAMINE HCL 100 MG TAB PO SCH (08:50)
[2020-12-07] MEDS: METOPROLOL TARTRATE 25 MG TAB PO SCH ×2 (08:50→20:36)
[2020-12-07] MEDS: hydroCHLOROthiazide 25 MG TAB PO SCH (12:33)
--- NOTE | 2020-12-07 16:32 | Hospitalist Progress Note ---
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 Is found to have cholangitis/cholecystitis and supratherapeutic INR and hypokalemia in the ED, general surgery and GI consulted, underwent ERCP on the day of admission, was in septic shock, got managed in ICU for 1 day. Transfer out of ICU 12/03 to PCU and is being managed for the following: #. Sepsis with shock requiring pressors - resolved 12/03 #. Cholangitis #. Acute hypoxic respiratory failure #. Increased blood lactic acid leveltrend until normal Admitting WBC 21.3K, lactate 8.9, RR 22, BP 78/54 mmHg, temperature 36.3C; needed 3 L normal saline bolus and then pressors. Admitting CXR: Blunting of the right costophrenic angle is suggestive of atelectasis versus trace effusion. Admitting CTAP: Obstructive 4 mm calculus within the distal aspect of the common bile duct A/W CBD dilation and cholecystitis and cholangitis. Bilateral nonobstructive nephrolithiasis. 12/02 blood culture: Growing E. coli 12/02 Common bile aspirate culture: Growing E. coli, final result pending 12/02 urine culture: Negative. 12/02 ERCP: Ascending cholangitis, choledocholithiasis -complete removal by biliary sphincterotomy and balloon extraction. One plastic biliary stent was p laced into the common bile duct. 12/05 echo: EF 50 to 55%, severe dilatation of left atrium, patent foramen ovale, systolic pulmonary pressure 50 mmHg. GI on board: 12/02 ERCP, Cholecystectomy this admission per surgery once clinically stable and prior to discharge. Repeat ERCP in 6 weeks to remove tremayne nt. General surgery on board: Postponed cholecystectomy, outpatient follow-up with Dr. Lafleur in about 2 weeks after discharge to discuss further management of his gallbladder. Continue with antibiotic Zosyn 12/02---> 12/04 Unasyn, changed to Augmentin for total of 14 days of antibiotic course prior to discharge, likely tomorrow. Ac. Resp. Failure. Most likely secondary to acute illness superimposed by aggressive fluid resuscitation, use diuresis as needed. I/O postive balance by +1.8 L 12/04 CXR with vascular congestion, proBNP elevated at 2616. Cardiology on board: Diuresing with potassium supplementation. Saturating normal on room air #. HTN Hypotensive at presentation, resumed lisinopril, getting as needed basis, continue to hold HCTZ. Resume HCTZ upon discharge. #. Chronic A. fib #. Supratherapeutic INR #. 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 Got home dose warfarin 12/03 and 12/04, changed to heparin drip 12/04 in anticipation for cholecystectomy while inpatient --> will DC heparin since cholecystectomy is now postponed. 12/05 and 12/06 INR therapeutic range, monitor INR daily, can resume warfarin tomorrow. INR is 2.6 as of 12/07/2020 #. Hypokalemia K+ 2.6 at presentation, received multiple replacement, still low K, received 80 mEq of K+ today. Monitor daily, replace as appropriate. #. MAYUR BUN and creatinine at presentation 22 and 2.17, baseline creatinine around 1 Resolved #. Elevated troponin 0.129 at presentation, EKG NSR, troponin trended down, likely secondary to sepsis and demand ischemia. No chest pain. #. CAD (coronary artery disease) -Last echo was in 2007, Left ventricular wall thickness, LV normal systolic function, left atrial enlargement is mild, trace mitral and mild tricuspid insufficiency, suggestion of mild elevation of pulmonary pressure -Holding metoprolol, felodipine, lisinopril, hctz 12/05 echo: EF 50 to 55%, severe dilation of left atrium, systolic pulmonary pressure 50 mmHg. Patent foramen ovale. Full code DVT prophylaxis: On therapeutic lovenox Disposition: Income past denied the patient, patient refusing SNF, transplant case manager to talk with daughter regarding placement, can likely be discharged tomorrow once patient is on room air or with two-step test as appropriate. 12/06 DtrKrishna Ruelas [[phone]] was updated over the phone regarding plan of care about her father, answered her questions in detail, patient voiced understanding and was agreeable to the plan of care. Patient requested to talk with transplant case manager regarding placement going forward. We will get PT and OT reevaluation and possible discharge home thereafter if recommended Admission and Anticipated Discharge Date Admission Date: December 02, 2020 Subjective 12/07/2020 The patient was seen and examined in telemetry unit He has been weak but denies any other significant symptoms No fever and no chills, no abdominal pain, nausea or vomiting and no chest pain and/or palpitation He has been waiting to go to rehab Review of Systems Review of Systems: All systems reviewed and are unremarkable except as noted below Musculoskeletal: Generalized weakness Physical Exam Physical Exam: Lying in bed comfortably Constitutional: well developed, well nourished, + ill appearing and + obese Eyes: PERRL, conjunctivae normal, anicteric sclerae ENMT: external ear and nose normal, oropharynx normal Neck: trachea midline, no thyromegaly Respiratory: no respiratory distress and no cough Auscultation: lungs clear to auscultation bilaterally and + diminished lung sounds Cardiovascular: Rate/Rhythm: regular rate and regular rhythm; not tachycardic Heart Sounds: normal S1 and normal S2; no murmur Extremities: no edema Gastrointestinal (Abdomen): Inspection/Auscultation: normal bowel sounds; abdomen not distended Percussion/Palpation: abdomen soft; abdomen nontender Musculoskeletal: No acute arthritis in any joint Neurologic: Alert, awake and oriented x3. Generally weak but no focal sensory or motor deficit appreciated Results & Data Results & Data ([facility]) Vital Signs (Past 12 Hours) Vital Signs Temp Pulse Pulse Resp BP BP Pulse Ox 12/07/20 15:48 64 12/07/20 15:18 36.6 C 73 17 151/89 H 93 12/07/20 10:58 36.7 C 63 17 128/81 94 12/07/20 08:00 72 12/07/20 07:52 36.7 C 72 16 161/90 H 93 Laboratory Results BMP 12/07/20 07:40 Sodium 139 Potassium 3.5 Chloride 105 Carbon Dioxide 27 BUN 21 H Creatinine 0.83 Glucose 88 Calcium 8.3 L Medications Administered Current Inpatient Medications Acetaminophen (Acetaminophen 325 Mg Tab) 650 mg PO Q4H PRN PRN Reason: Moderate Pain Stop: 01/01/21 15:22 Albuterol (Albut/Ipratrop 3mg/0.5mg Neb 3 Ml Vial) 3 ml NEB Q4R PRN PRN Reason: wheezing, SOB Stop: 01/03/21 10:59 Last Admin: 12/04/20 11:45 Dose: 3 ml Documented by: Atorvastatin Calcium (Atorvastatin 10 Mg Tab) [address] [facility] Stop: 01/01/21 20:59 Last Admin: 12/06/20 20:03 Dose: 10 mg Documented by: Hydrochlorothiazide (Hydrochlorothiazide 25 Mg Tab) [facility] Stop: 01/06/21 10:59 Last Admin: 12/07/20 12:33 Dose: 12.5 mg Documented by: Ampicillin Sodium/Sulbactam Sodium 3,000 mg/ Sodium Chloride 108 mls @ 216 mls/hr IV Q6H [facility]; Protocol Stop: 12/14/20 15:59 Last Admin: 12/07/20 16:05 Dose: 216 mls/hr Documented by: Lisinopril (Lisinopril 20 Mg Tab) 20 mg PO BID [facility] Stop: 01/05/21 20:59 Last Admin: 12/07/20 08:50 Dose: 20 mg Documented by: Metoprolol Tartrate (Metoprolol Tartrate 25 Mg Tab) 25 mg PO BID [facility] Stop: 01/05/21 20:59 Last Admin: 12/07/20 08:50 Dose: 25 mg Documented by: Ondansetron HCl (Ondansetron Inj 2 Mg/Ml 2 Ml Vial) 4 mg IV Q4H PRN PRN Reason: Nausea And Vomiting Stop: 01/01/21 15:22 Thiamine HCl (Thiamine Hcl 100 Mg Tab) [facility] Stop: 12/10/20 09:01 Last Admin: 12/07/20 08:50 Dose: 100 mg Documented by: Warfarin Sodium (Warfarin Sod 2.5 Mg Tab) 2.5 mg PO [email or web address]@0900 [facility] Stop: 01/02/21 15:59 Last Admin: 12/03/20 17:31 Dose: 2.5 mg Documented by: Warfarin Sodium (Warfarin Sod 5 Mg Tab) 5 mg PO John@0900 [facility] Stop: 01/03/21 08:59 Last Admin: 12/04/20 09:18 Dose: 5 mg Documented by:
[2020-12-07] MEDS: ATORVASTATIN 10 MG TAB PO SCH (20:36)
[2020-12-08] MEDS: AMPICILLIN/SULBACTAM SOD 3,000 MG in 0.9 % SODIUM CHLORIDE 100 ML IV SCH ×2 (03:54→10:26)
[2020-12-08 06:19] LABS: Hematocrit (blood only) 40.6 % (42-52); Hemoglobin 14.1 g/dL (14.0-18.0); Mean Corpuscular Hemoglobin 29.7 pg (25-34); Mean Corpuscular Hgb Conc 34.7 g/dL (32-36); Mean Corpuscular Volume 85.5 fL (80-100); Mean Platelet Volume 11.7 fL (7.4-10.4); Platelet Count 242 K/uL (130-400); RDW Coefficient of Variation 15.4 % (11.5-14.5); RDW Standard Deviation 48.4 fL (36.4-46.3); Red Blood Count 4.75 M/uL (4.7-6.1); White Blood Count 13.63 K/uL (4.8-10.8)
[2020-12-08 06:32] LABS: INR 2.4 (0.9-1.1); Partial Thromboplastin Ratio 1.5; Partial Thromboplastin Time 38.6 Seconds (21.0-31.0); Prothrombin Time 22.3 Seconds (9.0-12.0)
[2020-12-08 06:46] LABS: Magnesium 1.7 mg/dl (1.8-2.4); Phosphorus 2.8 mg/dl (2.5-4.9)
[2020-12-08 06:59] LABS: Basophils # (auto) 0.05 K/uL (0-0.2); Basophils % (auto) 0.4 %; Eosinophils % (auto) 2.9 %; Immature Granulocytes # (auto) 1.25 K/uL (0.00-0.02); Immature Granulocytes % (auto) 9.2 %; Lymphocytes # (auto) 2.37 K/uL (1.2-3.4); Lymphocytes % (auto) 17.4 %; Monocytes % (auto) 8.1 %; Neutrophils # (auto) 8.46 K/uL (1.4-6.5)
[2020-12-08] MEDS: THIAMINE HCL 100 MG TAB PO SCH (07:55)
[2020-12-08] MEDS: hydroCHLOROthiazide 25 MG TAB PO SCH (07:55)
[2020-12-08] MEDS: lisinopril 20 MG TAB PO SCH (07:55)
[2020-12-08] MEDS: METOPROLOL TARTRATE 25 MG TAB PO SCH (07:55)
--- NOTE | 2020-12-08 09:41 | Cardiology Progress Note ---
Date of Service December 08, 2020 Assessment & Plan (1) Volume overload: (2) Chronic atrial fibrillation: (3) Choledocholithiasis with acute cholecystitis with obstruction: (4) Hypokalemia: Plan: Restart felodipine. Continue HCTZ 12.5mg daily, lisinopril 20mg BID, and metoprolol 25 mg twice daily.. Restart warfarin today. Follow-up with anticoagulation clinic. Outpatient cardiology follow up in 4 weeks. Admission and Anticipated Discharge Date Admission Date: December 02, 2020 Subjective Patient seen examined the bedside. Feeling well from a cardiovascular perspective. Telemetry reveals atrial fibrillation with heart rate ranging from 70-80 bpm. INR remains therapeutic. Warfarin held yesterday. No signs/symptoms of GI/ blood loss. Patient denies chest pain or shortness of breath. Will likely return home with home nursing. Review of Systems Review of Systems: All systems reviewed & are unremarkable except as noted in Subjective Physical Exam Constitutional: well developed and well nourished; no acute distress Respiratory: normal respiratory effort; no respiratory distress and no labored breathing Auscultation: breath sounds present, no crackles, no rales and no rhonchi Cardiovascular: Rate/Rhythm: + irregularly irregular Heart Sounds: normal S1 and normal S2; no murmur and no cardiac rub Gastrointestinal (Abdomen): Inspection/Auscultation: abdomen normal to in spection and normal bowel sounds; abdomen not distended Percussion/Palpation: abdomen soft; abdomen nontender, no guarding and abdomen not rigid Neurologic: CN's II-XI intact bilaterally and moves all extremities; no focal motor deficits Results & Data ([facility]) Vital Signs (Past 12 Hours) Vital Signs Temp Pulse Pulse Pulse Resp BP BP 12/08/20 07:55 36.8 C 67 20 142/80 H 12/08/20 03:58 36.8 C 71 18 156/93 H 12/07/20 23:14 36.8 C 71 17 151/90 H 12/07/20 22:24 70 Pulse Ox 12/08/20 07:55 94 12/08/20 03:58 93 12/07/20 23:14 94 12/07/20 22:24
--- NOTE | 2020-12-08 11:07 | Hospitalist Progress Note ---
Date of Service December 08, 2020 Assessment & Plan (1) Septic shock: (2) Supratherapeutic INR: (3) Cholangitis: (4) Choledocholithiasis with acute cholecystitis with obstruction: Plan: 85 yo M with PMhx of chronic afib on warfarin, CAD, HTN, HLD, CVA, and pulmonary embolism who presents 12/02 with acute illness which started approximately 1 week ago DATA CLERK in the form of belly discomfort associated with weakness and lethargy/decreased appetite/weight loss. Is found to have cholangitis/cholecystitis and supratherapeutic INR and hypokalemia in the ED, general surgery and GI consulted, underwent ERCP on the day of admission, was in septic shock, got managed in ICU for 1 day. Transfer out of ICU 12/03 to PCU and is being managed for the following: #. Sepsis with shock requiring pressors - resolved 12/03 #. Cholangitis #. Acute hypoxic respiratory failure #. Increased blood lactic acid leveltrend until normal Admitting WBC 21.3K, lactate 8.9, RR 22, BP 78/54 mmHg, temperature 36.3C; needed 3 L normal saline bolus and then pressors. Admitting CXR: Blunting of the right costophrenic angle is suggestive of atelectasis versus trace effusion. Admitting CTAP: Obstructive 4 mm calculus within the distal aspect of the common bile duct A/W CBD dilation and cholecystitis and cholangitis. Bilateral nonobstructive nephrolithiasis. 12/02 blood culture: Growing E. coli 12/02 Common bile aspirate culture: Growing E. coli, final result pending 12/02 urine culture: Negative. 12/02 ERCP: Ascending cholangitis, choledocholithiasis -complete removal by biliary sphincterotomy and balloon extraction. One plastic biliary stent was pl aced into the common bile duct. 12/05 echo: EF 50 to 55%, severe dilatation of left atrium, patent foramen ovale, systolic pulmonary pressure 50 mmHg. GI on board: 12/02 ERCP, Cholecystectomy this admission per surgery once clinically stable and prior to discharge. Repeat ERCP in 6 weeks to remove tremayne nt. General surgery on board: Postponed cholecystectomy, outpatient follow-up with Dr. Lafleur in about 2 weeks after discharge to discuss further management of his gallbladder. Continue with antibiotic Zosyn 12/02---> 12/04 Unasyn, changed to Augmentin for total of 14 days of antibiotic course prior to discharge. Antibiotic has been changed to Augmentin will continue for a total of 14 days of antibiotic He will be discharged home this afternoon Ac. Resp. Failure. Most likely secondary to acute illness superimposed by aggressive fluid resuscitation, use diuresis as needed. I/O postive balance by +1.8 L 12/04 CXR with vascular congestion, proBNP elevated at 2616. Cardiology on board: Diuresing with potassium supplementation. Saturating normal on room air #. HTN Hypotensive at presentation, resumed lisinopril, getting as needed basis, continue to hold HCTZ. Resume HCTZ upon discharge. #. Chronic A. fib #. Supratherapeutic INR #. History of CVA/PE Patient on long-term Coumadin at home INR of 9.9 at presentation likely secondary to decreased food intake in the last week DATA CLERK At home takes 5 mg on Sun/Tu/Th, and 2.5 mg on all other days, last dose taken was 1 day DATA CLERK Patient received 10 mg IV vitamin K and 2 FFP prior to ERCP on the day of admission INR 1.6 today 12/03. Got home dose warfarin 12/03 and 12/04, changed to heparin drip 12/04 in anticipation for cholecystectomy while inpatient --> will DC heparin since cholecystectomy is now postponed. 12/05 and 12/06 INR therapeutic range, monitor INR daily, can resume warfarin tomorrow. INR is 2. 419 3021 Continue his blood pressure medications with HCTZ 12.5mg daily, lisinopril 20mg BID, and metoprolol 25 mg twice daily.. #. Hypokalemia K+ 2.6 at presentation, received multiple replacement, still low K, received 80 mEq of K+ today. Monitor daily, replace as appropriate. #. MAYUR BUN and creatinine at presentation 22 and 2.17, baseline creatinine around 1 Resolved #. Elevated troponin 0.129 at presentation, EKG NSR, troponin trended down, likely secondary to sepsis and demand ischemia. No chest pain. #. CAD (coronary artery disease) -Last echo was in 2007, Left ventricular wall thickness, LV normal systolic function, left atrial enlargement is mild, trace mitral and mild tricuspid insufficiency, suggestion of mild elevation of pulmonary pressure -Holding metoprolol, felodipine, lisinopril, hctz 12/05 echo: EF 50 to 55%, severe dilation of left atrium, systolic pulmonary pressure 50 mmHg. Patent foramen ovale. Full code DVT prophylaxis: On therapeutic lovenox Disposition: Income past denied the patient, patient refusing SNF, case management director to talk with daughter regarding placement, can likely be discharged tomorrow once patient is on room air or with two-step test as appropriate. 12/06 Dtr. Jessenia [[phone]] was updated over the phone regarding plan of care about her father, answered her questions in detail, patient voiced understanding and was agreeable to the plan of care. Patient requested to talk with case management director regarding placement going forward. Has had PT evaluation today and recommended that he can be discharged home He will be discharged home this afternoon Admission and Anticipated Discharge Date Admission Date: December 02, 2020 Subjective 12/07/2020 The patient was seen and examined in telemetry unit He has been weak but denies any other significant symptoms No fever and no chills, no abdominal pain, nausea or vomiting and no chest pain and/or palpitation He has been waiting to go to rehab 12/08/2020 The patient was seen and examined in telemetry unit He has been feeling much better and did very well with physical therapy Denies any significant symptoms Will be discharged home this afternoon Review of Systems Review of Systems: All systems reviewed and are unremarkable except as noted below Musculoskeletal: Generalized weakness Physical Exam Physical Exam: Lying in bed comfortably Constitutional: well developed, well nourished, + ill appearing and + obese Eyes: PERRL, conjunctivae normal, anicteric sclerae ENMT: external ear and nose normal, oropharynx normal Neck: trachea midline, no thyromegaly Respiratory: no respiratory distress and no cough Auscultation: lungs clear to auscultation bilaterally and + diminished lung sounds Cardiovascular: Rate/Rhythm: regular rate and regular rhythm; not tachycardic Heart Sounds: normal S1 and normal S2; no murmur Extremities: no edema Gastrointestinal (Abdomen): Inspection/Auscultation: normal bowel sounds; abdomen not distended Percussion/Palpation: abdomen soft; abdomen nontender Musculoskeletal: No acute arthritis in any joint Neurologic: Alert, awake and oriented x3. Generally weak but no focal sensory or motor deficit appreciated Results & Data Results & Data ([facility]) Vital Signs (Past 12 Hours) Vital Signs Temp Pulse Pulse Pulse Resp BP BP 12/08/20 08:00 69 12/08/20 07:55 36.8 C 67 20 142/80 H 12/08/20 03:58 36.8 C 71 18 156/93 H 12/07/20 23:14 36.8 C 71 17 151/90 H Pulse Ox 12/08/20 08:00 12/08/20 07:55 94 12/08/20 03:58 93 12/07/20 23:14 94 Laboratory Results Short CBC 12/08/20 Range/Units 06:06 WBC 13.63 H (4.8-10.8) K/uL Hgb 14.1 (14.0-18.0) g/dL Hct 40.6 L (42-52) % Plt Count 242 (130-400) K/uL Medications Administered Current Inpatient Medications Acetaminophen (Acetaminophen 325 Mg Tab) 650 mg PO Q4H PRN PRN Reason: Moderate Pain Stop: 01/01/21 15:22 Albuterol (Albut/Ipratrop 3mg/0.5mg Neb 3 Ml Vial) 3 ml NEB Q4R PRN PRN Reason: wheezing, SOB Stop: 01/03/21 10:59 Last Admin: 12/04/20 11:45 Dose: 3 ml Documented by: Amoxicillin/Clavulanate Potassium (Amoxicillin/Clavulanate 875 Mg Tab) 1 tab PO BIDM [facility] Stop: 12/18/20 16:59 Atorvastatin Calcium (Atorvastatin 10 Mg Tab) 10 mg PO HS [facility] Stop: 01/01/21 20:59 Last Admin: 12/07/20 20:36 Dose: 10 mg Documented by: Hydrochlorothiazide (Hydrochlorothiazide 25 Mg Tab) 12.5 mg PO QAM [facility] Stop: 01/06/21 10:59 Last Admin: 12/08/20 07:55 Dose: 12.5 mg Documented by: Lisinopril (Lisinopril 20 Mg Tab) 20 mg PO BID [facility] Stop: 01/05/21 20:59 Last Admin: 12/08/20 07:55 Dose: 20 mg Documented by: Metoprolol Tartrate (Metoprolol Tartrate 25 Mg Tab) 25 mg PO BID [facility] Stop: 01/05/21 20:59 Last Admin: 12/08/20 07:55 Dose: 25 mg Documented by: Ondansetron HCl (Ondansetron Inj 2 Mg/Ml 2 Ml Vial) 4 mg IV Q4H PRN PRN Reason: Nausea And Vomiting Stop: 01/01/21 15:22 Thiamine HCl ([facility] Hcl 100 Mg Tab) [facility] Stop: 12/10/20 09:01 Last Admin: 12/08/20 07:55 Dose: 100 mg Documented by: Warfarin Sodium (Warfarin Sod 2.5 Mg Tab) 2.5 mg PO MoWeFrSa@09 [facility] Stop: 01/02/21 15:59 Last Admin: 12/03/20 17:31 Dose: 2.5 mg Documented by: Warfarin Sodium (Warfarin Sod 5 Mg Tab) 5 mg PO SuTuTh@0900 [facility] Stop: 01/03/21 08:59 Last Admin: 12/04/20 09:18 Dose: 5 mg Documented by:
[2020-12-08] MEDS ORDERED: AMOXICILLIN/CLAVULANATE 875 MG TAB PO SCH (17:00)
--- NOTE | 2020-12-09 08:04 | Discharge Summary ---
Date of Service December 09, 2020 Admission HPI Per Admitting Provider Primary Care Provider: Karson Fonseca MD This is a 85 yo M with PMhx of chronic afib, CAD, HTN, HLD, hx of CVA, and pulmonary embolism who presents with acute illness which started approximately 1 week ago. He has progressively been getting worse, noting that he has right upper quadrant abdominal pain, tenderness and has been nauseous after he eats, patient admits to vomiting 4 times in the past week after consuming any type of food. He has been tolerating some liquids however his increase has diminished over the week. Reports that he cannot remember urinating at all yet today, but last time he did it was very dark. Denies hematuria. Bowels last moved yesterday and were dark in color, denies hematochezia, BRBPR. Denies fever however did not take his temperature in the past week, reports sweats and chills. His daughter is present with him at bedside and supports the history. She had plan to take him to his PCP this morning due to worsening status over the past few days however decided to bring him to the ER instead. He typically does not require any oxygen at home however this morning sounded more short of breath to the daughter, and is currently requiring 8 L on oxygen mask in the ER, O2 sats are in the mid nineties. Admission Exam Per Admitting Provider Physical Exam: General: awake but falls asleep easily, fatigue, ill appearing, slight jaundice Head: Normocephalic, atraumatic ENT: PERRL, EOMI, no pharyngeal exudate, mucous membranes dry Chest: Clear to auscultation, 8L via oximask, no adventitious breath sounds Cardiac: Regular rate and rhythm, no murmur, no JVD, normal peripheral pulses, good capillary refill Abdominal: NABS x 4 quadrants, soft, nondistended, nontender to palpation, no rebound or guarding Extremities: Normal inspection, no peripheral edema or erythema, calfs nontender to palpation Psych: Normal mood and affect Neuro: AAO x 3, strength intact bilaterally and rated 5/5, no motor deficits, speech is clear, no peripheral sensory deficits Principal Diagnosis Sepsis secondary to acute cholangitis, acute hypoxic respiratory failure- resolved, chronic atrial fibrillation, hypertension, CAD Discharge Exam Constitutional well developed, well nourished, + ill appearing and + obese Eyes PERRL, conjunctivae normal, anicteric sclerae ENMT external ear and nose normal, oropharynx normal Neck trachea midline, no thyromegaly Respiratory no respiratory distress and no cough Auscultation: lungs clear to auscultation bilaterally and + diminished lung sounds Cardiovascular Rate/Rhythm: regular rate and regular rhythm; not tachycardic Heart Sounds: normal S1 and normal S2; no murmur Extremities: no edema Gastrointestinal (Abdomen) Inspection/Auscultation: normal bowel sounds; abdomen not distended Percussion/Palpation: abdomen soft; abdomen nontender Discharge Data Allergies Allergy/AdvReac Type Severity Reaction Status Date / Time No Known Allergies Allergy Unknown Verified 12/02/20 09:11 Consultations 12/02/20 11:33 Consult Gastroenterology Routine 12/02/20 11:44 ED Decision to Admit Stat 12/02/20 12:33 Consult Market Intelligence Consultant Routine 12/02/20 15:23 Consult General Surgery Routine 12/04/20 12:51 Consult Cardiology Routine Procedures Performed Operation Date: 12/02/20 12:20 Actual Procedures p Endoscopic Retrograde Cholangiopancreatogram(Not Applicable) - Sunshine Cline MD Ordered Studies 12/02/20 [place] ERCP biliary ductal Routine 12/02/20 09:50 CT abd pelvis wo con Stat Hospital Course (1) Septic shock: (2) Supratherapeutic INR: (3) Cholangitis: (4) Choledocholithiasis with acute cholecystitis with obstruction: 85 yo M with PMhx of chronic afib on warfarin, CAD, HTN, HLD, CVA, and pulmonary embolism who presents 12/02 with acute illness which started approximately 1 week ago NET APPLICATIONS DEVELOPER in the form of belly discomfort associated with weakness and lethargy/decreased appetite/weight loss. Is found to have cholangitis/cholecystitis and supratherapeutic INR and hypokalemia in the ED, general surgery and GI consulted, underwent ERCP on the day of admission, was in septic shock, got managed in ICU for 1 day. Transfer out of ICU 12/03 to PCU and is being managed for the following: #. Sepsis with shock requiring pressors - resolved 12/03 #. Cholangitis #. Acute hypoxic respiratory failure #. Increased blood lactic acid leveltrend until normal Admitting WBC 21.3K, lactate 8.9, RR 22, BP 78/54 mmHg, temperature 36.3C; needed 3 L normal saline bolus and then pressors. Admitting CXR: Blunting of the right costophrenic angle is suggestive of ate lectasis versus trace effusion. Admitting CTAP: Obstructive 4 mm calculus within the distal aspect of the common bile duct A/W CBD dilation and cholecystitis and cholangitis. Bilateral nonobstructive nephrolithiasis. 12/02 blood culture: Growing E. coli 12/02 Common bile aspirate culture: Growing E. coli, final result pending 12/02 urine culture: Negative. 12/02 ERCP: Ascending cholangitis, choledocholithiasis -complete removal by biliary sphincterotomy and balloon extraction. One plastic biliary stent was placed into the common bile duct. 12/05 echo: EF 50 to 55%, severe dilatation of left atrium, patent foramen ovale, systolic pulmonary pressure 50 mmHg. GI on board: 12/02 ERCP, Cholecystectomy this admission per surgery once clinically stable and prior to discharge. Repeat ERCP in 6 weeks to remove tremayne nt. General surgery on board: Postponed cholecystectomy, outpatient follow-up with Dr. Lafleur in about 2 weeks after discharge to discuss further management of his gallbladder. Continue with antibiotic Zosyn 12/02---> 12/04 Unasyn, changed to Augmentin for total of 14 days of antibiotic course prior to discharge. Antibiotic has been changed to Augmentin will continue for a total of 14 days of antibiotic He will be discharged home this afternoon Ac. Resp. Failure. Most likely secondary to acute illness superimposed by aggressive fluid resuscitation, use diuresis as needed. I/O postive balance by +1.8 L 12/04 CXR with vascular congestion, proBNP elevated at 2616. Cardiology on board: Diuresing with potassium supplementation. Saturating normal on room air #. HTN Hypotensive at presentation, resumed lisinopril, getting as needed basis, continue to hold HCTZ. Resume HCTZ upon discharge. #. Chronic A. fib #. Supratherapeutic INR #. History of CVA/PE Patient on long-term Coumadin at home INR of 9.9 at presentation likely secondary to decreased food intake in the last week NET APPLICATIONS DEVELOPER At home takes 5 mg on Sun/Tues/Thurs, and 2.5 mg on all other days, last dose taken was 1 day NET APPLICATIONS DEVELOPER Patient received 10 mg IV vitamin K and 2 FFP prior to ERCP on the day of admission INR 1.6 today 12/03. Got home dose warfarin 12/03 and 12/04, changed to heparin drip 12/04 in anticipation for cholecystectomy while inpatient --> will DC heparin since cholecystectomy is now postponed. 12/05 and 12/06 INR therapeutic range, monitor INR daily, can resume warfarin tomorrow. INR is 2. 419 3021 Continue his blood pressure medications with HCTZ 12.5mg daily, lisinopril 20mg BID, and metoprolol 25 mg twice daily.. #. Hypokalemia K+ 2.6 at presentation, received multiple replacement, still low K, received 80 mEq of K+ today. Monitor daily, replace as appropriate. #. MAYUR BUN and creatinine at presentation 22 and 2.17, baseline creatinine around 1 Resolved #. Elevated troponin 0.129 at presentation, EKG NSR, troponin trended down, likely secondary to sepsis and demand ischemia. No chest pain. #. CAD (coronary artery disease) -Last echo was in 2007, Left ventricular wall thickness, LV normal systolic function, left atrial enlargement is mild, trace mitral and mild tricuspid insufficiency, suggestion of mild elevation of pulmonary pressure -Holding metoprolol, felodipine, lisinopril, hctz 12/05 echo: EF 50 to 55%, severe dilation of left atrium, systolic pulmonary pressure 50 mmHg. Patent foramen ovale. Full code DVT prophylaxis: On therapeutic lovenox Disposition: Income past denied the patient, patient refusing SNF, wrapper caser to talk with daughter regarding placement, can likely be discharged tomorrow once patient is on room air or with two-step test as appropriate. 12/06 Dtr. Jessenia [[phone]] was updated over the phone regarding plan of care about her father, answered her questions in detail, patient voiced understanding and was agreeable to the plan of care. Patient requested to talk with wrapper caser regarding placement going forward. Has had PT evaluation today and recommended that he can be discharged home He will be discharged home this afternoon Total Time Total Time Spent Total Time Spent (In Minutes): 40 minutes Discharge Plan Discharge Items Patient Disposition: Home - Self-Care Reason For Visit: CHOLANGITIS Discharge Diagnosis: Sepsis secondary to acute cholangitis, acute hypoxic respiratory failure- resolved, chronic atrial fibrillation, hypertension, CAD Condition on Discharge: Fair Activity: Resume your previous activity Activity Comment: Take it easy for the next few days to weeks Non-emergency contact: Primary Care Provider Call non-emergency contact if: you have any medication questions and your symptoms worsen Follow-up/Referrals: Atif Mays DO [Tree Deadener] - ([facility] Cardiology will call you with an appointment time. ) Lashae Saxena MD [Physician] - (Date & Time 12/20/2020 1:45 PM Provider Lashae Saxena MD Department General Surgery, [facility] ) Sunshine Cline MD [Hospitalist] - 01/24/21 ([facility] Gastroenterology will call you with the time for the ERCP on 01/24/2021) Karson Fonseca MD [Primary Care Provider] - (Date & Time 12/13/2020 3:20 PM Provider Karson Fonseca MD Department Family Practice [facility] ) Diet: Heart Healthy, Low Fiber and Low Fat Diet Texture: Dental soft (bite-sized) Addtl Attending Provider Instructions: Please take extreme precautions to avoid fall Finish the course of antibiotic Keep appointments with your providers Pending Studies at Discharge: No Stand-Alone Forms: My [facility] milabent, Smoking Cessation Medications and DC Order Prescriptions: New thiamine HCl (vitamin B1) [Vitamin B-1] 100 mg Tablet 100 mg PO QAM Qty: 30 RF: 0 amoxicillin-pot clavulanate [Augmentin] 875-125 mg Tablet 1 tab PO BIDM 8 Days Qty: 16 RF: 0 Lactinex 1 million cell tablet,chewable 1 tab PO BID Qty: 30 RF: 0 Continued multivitamin [Daily Multi-Vitamin] Tablet 1 tab PO QAM RF: 0 atorvastatin [Lipitor] 10 mg Tablet 0 mg PO HS RF: 0 lisinopril [Prinivil] 20 mg tablet 20 mg PO BID RF: 0 felodipine 5 mg tablet extended release 24 hr 5 mg PO QAM RF: 0 warfarin [Jantoven] 5 mg tablet See Rx Instructions .ROUTE .COMPLEX RF: 0 metoprolol tartrate [Lopressor] 50 mg tablet 25 mg PO BID RF: 0 hydrochlorothiazide 12.5 mg capsule 12.5 mg PO QAM RF: 0 omega 5-osr-rar-fish oil [Fish Oil] 1,200 (144-216) mg Capsule 1 cap PO BID RF: 0 Discharge Orders: Discharge Order (Routine); Ordered 12/08/20 Ordered By: Jeferson Pedraza Admission Data Admit Date/Time: 12/02/20 11:33 Attending Provider: Jeferson Pedraza Admit Provider: Brooke Chiu Primary Care Provider: Karson Fonseca Other Providers: Sunshine Cline ; Brooke Chiu ; Neil Starr ; Krystyna Avendano ; Weston Atkins ; April Ham [facility] ; [facility], ; [facility] Other Interventions: Discharge Summary Assessment (RN) Last Done: 12/08/20 12:08
== END 2020-12-08 16:25 | disposition home health service (06) | DRG 871 ==
LOC: ED 08:20 → 1E 11:33 → SUATTDRO 11:33 → 1E 14:18 → 2S 12-03 13:28